=== PATIENT | male | born 1940 | race African-American/Black ===

== ENCOUNTER 2020-06-26 12:38 | Inpatient (IN) | payer OTHER ==
[2020-06-26] MEDS ORDERED: LORazepam 2 MG/ML SDV VIAL ONE (12:51)
[2020-06-26] MEDS ORDERED: diazePAM CARPU-JECT 10 MG/2 ML DISP.SYRIN IVPUSH ONE (12:58)
[2020-06-26] MEDS ORDERED: levETIRAcetam 500 MG/5 ML INJECTION VIAL IVPB ONE (13:03)
[2020-06-26] MEDS ORDERED: PROPOFOL 200 MG/20 ML VIAL IVPUSH ONE (13:16)
[2020-06-26 13:18] LABS: VENOUS BASE EXCESS 6.1 mmol/L (-2-2); VENOUS O2 SATURATION 96.6 % (70-80); VENOUS PCO2 43.7 mmHg (38-52); VENOUS PH 7.462 (7.310-7.410)
[2020-06-26] MEDS ORDERED: PROPOFOL 1,000,000 MCG/100 ML VIAL ONE (13:18)
[2020-06-26 13:19] LABS: BASO % 0.5 % (0-2.0); EOS % 1.9 % (0-4.5); HEMATOCRIT 26.4 % (35.4-49); HEMOGLOBIN 8.3 GM/dL (11.7-16.9); LYMPH % 26.4 % (8-40); MCH 26.4 pg (25.7-33.7); MCHC 31.5 g/dl (32.0-35.9); MEAN CELL VOLUME 83.7 fl (80-96); MEAN PLT VOLUME 6.7 fl (7.5-11.1); MONO % 9.9 % (3.8-10.2); NEUT % 61.3 % (42.8-82.8); PLATELET COUNT 668 K/MM3 (134-434); RBC 3.16 M/mm3 (4.00-5.60); RDW 17.6 % (11.9-15.9); WHITE BLOOD COUNT 11.1 K/mm3 (4.0-10.0)
--- NOTE | 2020-06-26 13:19 | PDOC ---
History of Present Illness - General Stated Complaint: SEIZURE Time Seen by Provider: 06/26/20 12:59 - History of Present Illness Initial Comments: 06/26/20 13:17 79yo M w/ significant past medical history of cardiac arrest, ICH, dysphagia, h ypertension, asthma, GERD, T1DM, neuropathy, COPD, s/p tracheostomy, seizures, metabolic encephalopathy, s/p chronic neely (changed every third Sat), and nonverbal at baseline who presents to the ED via EMS from [facility] with a seizure. Per [place] and EMS, the patient was having one of his daily seizures but, they did not have medications to control it once it continued longer than it usually does. Per EMS, he was not given anything en route. History is limited secondary to the patient's baseline thus, was obtained via EMS and [place]. Per [place] records, patients care is primarily from [facility]. Allergies: NKDA Primary Care Physician: Dr. Carcamo Unable to complete ROS because patient is nonverbal at baseline - Physicial Exam PE: 06/26/20 13:27 GENERAL: elderly male on EMS stretcher with tonic-clonic jerking movements and not responding to examiners, not tracking examiners, not responsive to pain HEENT: trach and vent dependent, PERRLA, EOMI, moist mucous membranes, no outward e/o facial trauma NECK/BACK: no spinal stepoff or deformity, no hematoma, neck supple CARDIOVASCULAR: regular rate/rhythm, normal S1S2, no MGR, capillary refill <2 seconds, extremities wwp, 2+ pitting anasarca all four extremities and sacrum LUNGS/RESPIRATORY: nonlabored respirations, lungs CTAB GI/ABDOMEN: PEG in place, symmetric [id number], normoactive BS, soft, no midline pulsatile masses, no organomegaly MSK/EXTREMITIES: chronic-appearing muscle atrophy, no acute deformity, anasarca DERM/SKIN: two 1cm bullae to left posterior lateral gluteus, skin is otherwise warm and dry, no pathologic-appearing bruising, no skin breakdown and no sacral decubitus ulcer, no lacerations, +lipodermatosclerosis BLE NEUROLOGICAL: leftward gaze deviation and tonic-clonic movements of head and upper extremities persisting despite medications c/w status epilepticus, not responding to pain, no movement BLE 06/26/20 14:44 MDM He apparently has seizures everyday, but today's allegedly lasted longer. We are, therefore, working him up for sepsis, trauma, electrolyte abnormality... CBC - thrombocytosis, mildly elevated WBC 06/26/20 14:53 06/26/20 15:11 79yo M from [facility] w/ prior ICH, cardiac arrest, seizure disorder, nonverbal at baseline and trached has daily seizures and p/w status epilepticus. He didn't respond to 2IM ativan + 2IV diazepam, was loaded on 1g Keppra, but finally did to a propofol bolus. Now on a propofol drip. Labs were grossly normal, no changes in meds and no labs suggesting infection. Is there anything else you want while we admit him. Iftikhar instructed to increase daily keppra dose to 1250mg IV bid. His v/s have been wnl except for his pressure, which just jumped up to the 180s/80s. We just gave him 10 Labetalol. Now being admitted to ICU for status. 06/26/20 15:58 Past History - Medical History Allergies/Adverse Reactions: Allergies Allergy/AdvReac Type Severity Reaction Status Date / Time No Known Allergies Allergy Verified 06/26/20 13:13 Home Medications: Ambulatory Orders Docusate Sodium [Colace Oral Solution -] 100 mg GT TID 06/26/20 Ferrous Sulfate [Feosol] 300 mg GT DAILY 06/26/20 Furosemide [Lasix -] 20 mg GT DAILY 06/26/20 Insulin Lispro [Admelog Solostar] 100 unit SQ ASDIR 06/26/20 Lactobacillus Acidophilus [Acidophilus] 1 each GT DAILY 06/26/20 Levetiracetam [Spritam] 1,000 mg GT BID 06/26/20 Losartan Potassium [Cozaar] 100 mg GT DAILY 06/26/20 Metoprolol Tartrate [Lopressor -] 12.5 mg GT BID 06/26/20 Ondansetron [Zofran *Odt*] 4 mg SL TID PRN 06/26/20 Polyethylene Glycol 3350 [Miralax (For Daily Use) -] 17 gm GT DAILY 06/26/20 Senna [place] Extract [Senna] 176 mg GT HS 06/26/20 *Physical Exam - Vital Signs Last Vital Signs Temp Pulse Resp BP Pulse Ox 18 06/26/20 13:02 ED Treatment Course - LABORATORY CBC & Chemistry Diagram: 06/26/20 12:55 06/26/20 12:55 - ADDITIONAL ORDERS Additional order review: Laboratory Results 06/26/20 13:14 POC Glucometer 120 06/26/20 13:14 POC Glucometer 120 Discharge - Discharge Information Problems reviewed: Yes Clinical Impression/Diagnosis: Status epilepticus, Edema Anemia Qualifiers: Anemia type: unspecified type Qualified Code(s): D64.9 - Anemia, unspecified Condition: Guarded - Admission Yes - Follow up/Referral - Patient Discharge Instructions - Post Discharge Activity
[2020-06-26 13:30] LABS: INR 1.15 (0.83-1.09); PROTHROMBIN TIME (PATIENT) 13.6 SEC (9.7-13.0)
[2020-06-26 13:32] LABS: ACTIVATED PTT 28.8 SECONDS (25.2-36.5)
[2020-06-26 13:39] LABS: ALBUMIN 2.2 g/dl (3.4-5.0); ALK PHOS 59 U/L (45-117); ANION GAP 5 MMOL/L (8-16); BILIRUBIN,TOTAL 0.3 mg/dL (0.2-1); BLOOD UREA NITROGEN 11.9 mg/dL (7-18); CALCIUM 9.2 mg/dL (8.5-10.1); CHLORIDE 105 mmol/L (98-107); CO2 32 mmol/L (21-32); CREATININE 0.5 mg/dL (0.55-1.3); GLUCOSE,RANDOM 125 mg/dL (74-106); LIPASE 141 U/L (73-393); MAGNESIUM 2.2 mg/dL (1.8-2.4); POTASSIUM 3.9 mmol/L (3.5-5.1); SGOT/AST 36 U/L (15-37); SGPT/ALT 67 U/L (13-61); SODIUM 142 mmol/L (136-145); TOT PROT 6.7 g/dl (6.4-8.2)
[2020-06-26] MEDS: PROPOFOL 1,000,000 MCG/100 ML VIAL IVPB SCH (14:12)
--- NOTE | 2020-06-26 14:53 | PDOC ---
Documentation entered by Melvin Brown SCRIBE, acting as scribe for Selena Colorado MD. Selena Colorado MD: This documentation has been prepared by the Stephanie contreras Nirvannie, SCRIBE, under my direction and personally reviewed by me in its entirety. I confirm that the documentation accurately reflects all work, treatment, procedures, and medical decision making performed by me. 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 Per [place] and EMS, the patient was having one of his daily seizures but, they did not have medications to control. Per EMS, he was not given anything en route. History is limited secondary to the patient's baseline thus, was obtained via EMS and [place]. Per [place] records, patients care is primarily from [facility]. Allergies: NKDA Primary Care Physician: Dr. Carcamo - Physicial Exam PE: 06/26/20 13:27 GENERAL: elderly male on EMS stretcher with tonic-clonic jerking movements and not responding to examiners, not tracking examiners, not responsive to pain HEENT: trach and vent dependent, PERRLA, EOMI, moist mucous membranes, no outward e/o facial trauma NECK/BACK: no spinal stepoff or deformity, no hematoma, neck supple CARDIOVASCULAR: regular rate/rhythm, normal S1S2, no MGR, capillary refill <2 seconds, extremities wwp, 2+ pitting anasarca all four extremities and sacrum LUNGS/RESPIRATORY: nonlabored respirations, lungs CTAB GI/ABDOMEN: PEG in place, symmetric [id number], normoactive BS, soft, no midline pulsatile masses, no organomegaly MSK/EXTREMITIES: chronic-appearing muscle atrophy, no acute deformity, anasarca DERM/SKIN: two 1cm bullae to left posterior lateral gluteus, skin is otherwise warm and dry, no pathologic-appearing bruising, no skin breakdown and no sacral decubitus ulcer, no lacerations, +lipodermatosclerosis BLE NEUROLOGICAL: leftward gaze deviation and tonic-clonic movements of head and upper extremities persisting despite medications c/w status epilepticus, not responding to pain, no movement BLE - Medical Decision Making 06/26/20 14:39 79YOM with h/o seizure disorder p/w status epilepticus. Initial Vital Signs Temp Pulse Resp BP Pulse Ox 97.7 F 109 H 20 157/70 99 06/26/20 12:50 06/26/20 12:50 06/26/20 12:50 06/26/20 12:50 06/26/20 12:50 DDX IBNLT: Most likely W/U ordered: labs as noted below, EKG, CXR, CTH without contrast TX ordered: IVF, Ativan IM as patient initially had no IV access, subsequently diazepam IV, subsequently Keppra 1 gm IVPB, subsequently propofol bolus and drip after status epilepticus is refractory to other medications EKG: Reviewed; results as noted in ECG Review section. Laboratory Tests 06/26/20 06/26/20 06/26/20 12:55 12:55 12:55 WBC 11.1 H RBC 3.16 L Hgb 8.3 L Hct 26.4 L MCV 83.7 MCH 26.4 MCHC 31.5 L RDW 17.6 H Plt Count 668 H MPV 6.7 L Absolute Neuts (auto) 6.8 Neutrophils % 61.3 Lymphocytes % 26.4 Monocytes % 9.9 Eosinophils % 1.9 Basophils % 0.5 Nucleated RBC % 0 PT with INR 13.60 H INR 1.15 H PTT (Actin FS) 28.8 VBG pH POC VBG pCO2 POC VBG pO2 VBG HCO3 VBG O2 Sat (Reece) VBG Base Excess Sodium 142 Potassium 3.9 Chloride 105 Carbon Dioxide 32 Anion Gap 5 L BUN 11.9 Creatinine 0.5 L Est GFR (CKD-EPI)AfAm 118.62 Est GFR (CKD-EPI)NonAf 102.35 POC Glucometer Random Glucose 125 H Lactic Acid Calcium 9.2 Phosphorus Magnesium 2.2 Total Bilirubin 0.3 AST 36 ALT 67 H Alkaline Phosphatase 59 Troponin I < 0.02 B-Natriuretic Peptide 216.0 Total Protein 6.7 Albumin 2.2 L Lipase 141 Blood Type Antibody Screen 06/26/20 06/26/20 06/26/20 12:55 12:55 12:55 WBC RBC Hgb Hct MCV MCH MCHC RDW Plt Count MPV Absolute Neuts (auto) Neutrophils % Lymphocytes % Monocytes % Eosinophils % Basophils % Nucleated RBC % PT with INR INR PTT (Actin FS) VBG pH 7.462 H POC VBG pCO2 43.7 POC VBG pO2 82.8 H VBG HCO3 30.5 H VBG O2 Sat (Reece) 96.6 H VBG Base Excess 6.1 H Sodium Potassium Chloride Carbon Dioxide Anion Gap BUN Creatinine Est GFR (CKD-EPI)AfAm Est GFR (CKD-EPI)NonAf POC Glucometer Random Glucose Lactic Acid 1.0 Calcium Phosphorus Magnesium Total Bilirubin AST ALT Alkaline Phosphatase Troponin I B-Natriuretic Peptide Total Protein Albumin Lipase Blood Type A POSITIVE Antibody Screen Negative 06/26/20 06/26/20 13:07 13:14 WBC RBC Hgb Hct MCV MCH MCHC RDW Plt Count MPV Absolute Neuts (auto) Neutrophils % Lymphocytes % Monocytes % Eosinophils % Basophils % Nucleated RBC % PT with INR INR PTT (Actin FS) VBG pH POC VBG pCO2 POC VBG pO2 VBG HCO3 VBG O2 Sat (Reece) VBG Base Excess Sodium Potassium Chloride Carbon Dioxide Anion Gap BUN Creatinine Est GFR (CKD-EPI)AfAm Est GFR (CKD-EPI)NonAf POC Glucometer 120 Random Glucose Lactic Acid Calcium Phosphorus 3.4 Magnesium Total Bilirubin AST ALT Alkaline Phosphatase Troponin I B-Natriuretic Peptide Total Protein Albumin Lipase Blood Type Antibody Screen CT/HEAD CT WITHOUT CONTRAST HISTORY PROVIDED: Seizure TECHNIQUE: Sequential axial images were obtained from the base of the skull to the vertex. There is a right frontoparietal extra-axial fluid collection consistent with a chronic subdural hematoma. There is no evidence of acute intracranial hemorrhage, mass lesions or infarctions. There is a moderate degree of diffuse cerebral atrophy with sulcal widening and ventricular dilatation. Extensive hypodensity is identified throughout the ventricular white matter consistent with chronic, small vessel ischemia. There is extensive opacification of the left maxillary sinus consistent with acute/chronic sinusitis. There is also partial opacification of the ethmoid sinuses, as well as the right mastoid air cells. The calvarium is intact. IMPRESSION: 1. Moderate right-sided chronic subdural hematoma. 2. Extensive sinusitis and right mastoiditis. 3. No evidence of acute intracranial pathology. CXR: trach noted, poor inspiration no focal consolidations. The Pt is unsafe for discharge at this time. They require further hospital observation, workup, and treatment. Plan is admission to ICU for status epilepticus refractory to 1st and 2nd line medications and requiring propofol drip. Vital Signs - 24 hr 06/26/20 06/26/20 06/26/20 12:50 13:02 13:27 Temperature 97.7 F 98.9 F Pulse Rate 109 H Pulse Rate [ Apical] Respiratory 20 18 Rate Blood Pressure 157/70 Blood Pressure [Right Calf] O2 Sat by Pulse 99 Oximetry (%) 06/26/20 06/26/20 13:30 14:00 Temperature 97.1 F L Pulse Rate 85 Pulse Rate [ 85 Apical] Respiratory 16 16 Rate Blood Pressure 157/77 Blood Pressure 128/72 [Right Calf] O2 Sat by Pulse 100 100 Oximetry (%) Heart Score/ECG Review #1 06/26/20 13:49 Sinus rhythm, rate 88, left axis deviation, RBBB, LAFB, nonspecific ST-T wvae abnormalities but no other ischemic ST-T changes Discharge - Discharge Information Problems reviewed: Yes Clinical Impression/Diagnosis: Status epilepticus Anemia Qualifiers: Anemia type: unspecified type Qualified Code(s): D64.9 - Anemia, unspecified Edema Qualifiers: Edema type: unspecified Qualified Code(s): R60.9 - Edema, unspecified Condition: Guarded - Admission Yes - Follow up/Referral - Patient Discharge Instructions - Post Discharge Activity
[2020-06-26 14:56] LABS: EPI CELLS 19 /uL (0-25.1); HYALINE CASTS 46 /uL (0-3.1); PH,URINE 7.5 (5.0-8.0); URINE APPEARANCE TURBID; URINE BACTERIA 380 /uL (0-1359); URINE BILIRUBIN NEGATIVE (NEGATIVE); URINE COLOR YELLOW; URINE GLUCOSE (UA) NEGATIVE (NEGATIVE); URINE KETONE NEGATIVE (NEGATIVE); URINE LEUK ESTERASE 2+ (NEGATIVE); URINE NITRITE NEGATIVE (NEGATIVE); URINE PROTEIN 2+ (NEGATIVE); URINE RBC 553 /uL (0-23.9); URINE WBC 399 /uL (0-25.8)
[2020-06-26] MEDS ORDERED: LABETALOL HCL 5 MG/1 ML (100MG/20 ML VIAL) IVPUSH ONE (15:30)
[2020-06-26] MEDS ORDERED: LABETALOL HCL 5 MG/1 ML (200MG/40ML VIAL) IVPB ONE (15:31)
[2020-06-26] MEDS ORDERED: ACETAMINOPHEN 650 MG/20.3 ML ORAL SOLUTION (CUPS) GT PRN (16:11)
[2020-06-26] MEDS ORDERED: D5-1/2NS+20 MEQ KCL - 20 MEQ/1,000 ML INFUS.BAG IV SCH (16:30)
--- NOTE | 2020-06-26 18:01 | CONSULT ---
Consult Consult Specialty:: PULM/CCM Referred by:: Cristina Walters MD Reason for Consultation:: Seizure not resolved with ativan - History of Present Illness Chief Complaint: Seizures History of Present Illness: 79yo M w/ medical history of cardiac arrest, ICH, dysphagia, hypertension, asthma, GERD, T1DM, neuropathy, COPD, s/p tracheostomy, seizures, metabolic encephalopathy, chronic neely (changed every third Sat), and nonverbal at baseline who presents to the ED via EMS from [facility] with a seizure. Per [place] and EMS, the patient was having one of his daily seizures but. In ED patient treated with diazepam, ativan and Keppra with no improvement. Patient then started on propofol infusion with positive outcome and was transferred to ICU for further management. 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, Seizure, Other (ICH, metabolic encephalopathy) Cardio/Vascular: Yes: HTN, Other (cardiac arrest) Pulmonary: Yes: Asthma, COPD, O2 Dependent, Other (trach to vent) Gastrointestinal: Yes: Other (PEG) Renal/: Yes: Other (chronic neely) ENT: Yes: Sinusitis Endocrine: Yes: Diabetes Mellitus - Alcohol/Substance Use Hx Alcohol Use: No - Smoking History Smoking history: Unknown if ever smoked Home Medications - Allergies Allergies/Adverse Reactions: Allergies Allergy/AdvReac Type Severity Reaction Status Date / Time No Known Allergies Allergy Verified 06/26/20 13:13 - Home Medications Home Medications: Ambulatory Orders Docusate Sodium [Colace Oral Solution -] 100 mg GT TID 06/26/20 Ferrous Sulfate [Feosol] 300 mg GT DAILY 06/26/20 Furosemide [Lasix -] 20 mg GT DAILY 06/26/20 Insulin Lispro [Admelog Solostar] 100 unit SQ ASDIR 06/26/20 Lactobacillus Acidophilus [Acidophilus] 1 each GT DAILY 06/26/20 Levetiracetam [Spritam] 1,000 mg GT BID 06/26/20 Losartan Potassium [Cozaar] 100 mg GT DAILY 06/26/20 Metoprolol Tartrate [Lopressor -] 12.5 mg GT BID 06/26/20 Ondansetron [Zofran *Odt*] 4 mg SL TID PRN 06/26/20 Polyethylene Glycol 3350 [Miralax (For Daily Use) -] 17 gm GT DAILY 06/26/20 Senna [place] Extract [Senna] 176 mg GT HS 06/26/20 Review of Systems Unable to obtain ROS, reason: unable to obtain Physical Exam Vital Signs: Vital Signs Temperature 97.1 F L 06/26/20 15:00 Pulse Rate 80 06/26/20 17:25 Respiratory Rate 16 06/26/20 17:25 Blood Pressure 138/89 06/26/20 17:25 O2 Sat by Pulse Oximetry (%) 100 06/26/20 16:57 Constitutional: Yes: No Distress Eyes: Yes: WNL, Conjunctiva Clear, PERRL HENT: Yes: Atraumatic, Normocephalic Neck: Yes: Supple, Other (tracheostomy) Cardiovascular: Yes: Regular Rate and Rhythm, S1, S2 Respiratory: Yes: Regular, CTA Bilaterally, Mechanically Ventilated, Other (tracheostomy) Gastrointestinal: Yes: Normal Bowel Sounds, Soft, Abdomen, Obese, Other (PEG) ...Rectal Exam: Yes: Deferred Renal/: Yes: Neely Present, Incontinence, Other (Chronic neely) Breast(s): Yes: WNL Musculoskeletal: Yes: Muscle Weakness Extremities: Yes: WNL Edema: LUE: 4+, RUE: 4+, LLE: 3+, RLE: 3+ Integumentary: Yes: Other (dry, flaky) Neurological: Yes: Other (unresponsive, currently on propofol, non-verbal at baseline) Labs: CBC, BMP 06/26/20 12:55 06/26/20 12:55 Imaging - Results X-ray: Image Reviewed (06/26 Personal read: Poor inspiratory effort. Bilateral opacities, some blunting of left costophrenic angle) Cat Scan: Report Reviewed (06/26 Moderate right-sided chronic subdural hematoma. Extensive sinusitis and right mastoiditis. No evidence of acute intracranial pathology.) Problem List - Problems (1) Status epilepticus Code(s): G40.901 - EPILEPSY, UNSP, NOT INTRACTABLE, WITH STATUS EPILEPTICUS (2) Seizure disorder Code(s): G40.909 - EPILEPSY, UNSP, NOT INTRACTABLE, WITHOUT STATUS EPILEPTICUS (3) Seizure disorder as sequela of cerebrovascular accident Code(s): I69.398 - OTHER SEQUELAE OF CEREBRAL INFARCTION; G40.909 - EPILEPSY, UN SP, NOT INTRACTABLE, WITHOUT STATUS EPILEPTICUS (4) Edema Code(s): R60.9 - EDEMA, UNSPECIFIED Qualifiers: Edema type: unspecified Qualified Code(s): R60.9 - Edema, unspecified (5) Tracheostomy dependent Code(s): Z93.0 - TRACHEOSTOMY STATUS (6) Chronic indwelling Neely catheter Code(s): Z97.8 - PRESENCE OF OTHER SPECIFIED DEVICES Assessment/Plan 79yo M w/ medical history of cardiac arrest, ICH, dysphagia, s/p tracheostomy, seizures, admitted to ICU for continues seizure activity requiring Propofol infusion. -Keppra 1250 mg BIB (increased from 1 g BID) -Neuro checks q 1 hours -Will give additional Ativan 4 mg IVP -Titrate off Propofol -Continue BB -No IVF a this time due to +4 peripheral edema' -Continue home dose Lasix -give 40 mg Lasix IVP x 1 now -Patient is vent dependent -Titrate FiO2 for saO2 >92%% -Pulmonary toileting -Neuro recs appreciated -No need for abx at this time -Follow up on infectious workup -Maintain neely -Will start TF later tonight if free of sz -Fingersticks q 6 hours with insulin sliding scale -DVT ppx -GI ppx Dispo: Patient is a full code
[2020-06-26] MEDS ORDERED: FUROSEMIDE 40 MG/4 ML INJECTABLE VIAL IVPUSH ONE (18:15)
[2020-06-26] MEDS ORDERED: LORazepam 2 MG/ML SDV VIAL IVPUSH ONE (18:36)
[2020-06-26] MEDS: INSULIN SLIDING SCALE (NOVOLOG) 1 VIAL SQ SCH (19:04)
[2020-06-26] MEDS: METOPROLOL TARTRATE 25 MG TABLET (FP) GT SCH (21:10)
[2020-06-26] MEDS: DOCUSATE NA 100 MG/10 ML UNIT-DOSE CUPS GT SCH (21:11)
[2020-06-26] MEDS: levETIRAcetam 500 MG/5 ML INJECTION VIAL IVPB SCH (21:11)
[2020-06-26] MEDS: MUPIROCIN 2% TOPICAL OINTMENT FOR DECOLONIZATION NS SCH (21:11)
[2020-06-26] MEDS: CHLORHEXIDINE GLUCONATE 4% CLEANSER FOR DECOLONIZATION TP SCH (21:12)
[2020-06-26] MEDS ORDERED: levETIRAcetam 500 MG/5 ML ORAL SOLUTION (UNIT-DOSE CUPS) GT SCH (22:00)
[2020-06-26] MEDS ORDERED: INSULIN SLIDING SCALE (NOVOLOG) 1 VIAL SQ SCH (22:00)
[2020-06-27] MEDS: INSULIN SLIDING SCALE (NOVOLOG) 1 VIAL SQ SCH ×4 (01:58→18:42)
[2020-06-27] MEDS ORDERED: LORazepam 2 MG/ML SDV VIAL IVPUSH ONE ×2 (04:10→09:36)
[2020-06-27] MEDS ORDERED: LORazepam 2 MG/ML SDV VIAL ONE ×2 (04:11→09:38)
[2020-06-27] MEDS: FUROSEMIDE 40 MG/4 ML INJECTABLE VIAL IVPUSH SCH ×2 (06:04→14:30)
[2020-06-27] MEDS: DOCUSATE NA 100 MG/10 ML UNIT-DOSE CUPS GT SCH ×3 (06:04→21:09)
--- NOTE | 2020-06-27 08:26 | CON.NEURO ---
Consult Consult Specialty:: [facility] Referred by:: ER Reason for Consultation:: Status - History of Present Illness History of Present Illness: this is an 79-year-old right-handed -[place] man with multiple medical problem including history of tracheostomy, history of strokes in the past, fdc resident, seizure disorder who came in yesterday last night I was called by the emergency room in turn that the patient came in with seizure activity multiple at the fdc patient did not stop seizing after Ativan and diazepam patient requires probable 4. CAT scan of the head with evidence of subdural hematoma and neurosurgery was called to evaluate the patient patient was admitted to the medical ICU so the patient in the ICU I spoke to the ICU team patient was unfortunately still seizing when I saw him. We increased the Keppra we loaded him with 1000 mg and then increase to 01/13/50. Patient is not DNR patient was evaluated by neurosurgery with this plan. 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, Other (ICH, metabolic encepha lopathy) Cardio/Vascular: Yes: HTN, Other (cardiac arrest) Pulmonary: Yes: Asthma, COPD, O2 Dependent, Other (trach to vent) Gastrointestinal: Yes: Other (PEG) Renal/: Yes: Other (chronic neely) ENT: Yes: Sinusitis Endocrine: Yes: Diabetes Mellitus - Alcohol/Substance Use Hx Alcohol Use: No - Smoking History Smoking history: Unknown if ever smoked Home Medications - Allergies Allergies/Adverse Reactions: Allergies Allergy/AdvReac Type Severity Reaction Status Date / Time No Known Allergies Allergy Verified 06/26/20 13:13 - Home Medications Home Medications: Ambulatory Orders Docusate Sodium [Colace Oral Solution -] 100 mg GT TID 06/26/20 Ferrous Sulfate [Feosol] 300 mg GT DAILY 06/26/20 Furosemide [Lasix -] 20 mg GT DAILY 06/26/20 Insulin Lispro [Admelog Solostar] 100 unit SQ ASDIR 06/26/20 Lactobacillus Acidophilus [Acidophilus] 1 each GT DAILY 06/26/20 Levetiracetam [Spritam] 1,000 mg GT BID 06/26/20 Losartan Potassium [Cozaar] 100 mg GT DAILY 06/26/20 Metoprolol Tartrate [Lopressor -] 12.5 mg GT BID 06/26/20 Ondansetron [Zofran *Odt*] 4 mg SL TID PRN 06/26/20 Polyethylene Glycol 3350 [Miralax (For Daily Use) -] 17 gm GT DAILY 06/26/20 Senna [place] Extract [Senna] 176 mg GT HS 06/26/20 Family Medical History Family History: Unable to Obtain Review of Systems Unable to obtain ROS, reason: unable to obtain Physical Exam-Neuro Vital Signs: Vital Signs Temperature 98 F 06/27/20 06:00 Pulse Rate 93 H 06/27/20 06:00 Respiratory Rate 16 06/27/20 06:00 Blood Pressure 169/93 06/27/20 06:00 O2 Sat by Pulse Oximetry (%) 100 06/27/20 06:00 Labs: CBC, BMP 06/26/20 12:55 06/26/20 12:55 INR, PTT INR 1.15 (0.83-1.09) H 06/26/20 12:55 - Neuro Exam Level Of Consciousness: Yes: Obtunded Eyes: Yes: PERRLA Speech: Other Dominant Hand: Right Cranial Nerves II-XII Intact: No DTR's: 1+ Left Bicep, 1+ Right Bicep, 1+ Left Tricep, 1+ Right Tricep Imaging - Results Cat Scan: Image Reviewed Problem List - Problems (1) Subdural bleeding Code(s): I62.00 - NONTRAUMATIC SUBDURAL HEMORRHAGE, UNSPECIFIED (2) Status epilepticus Code(s): G40.901 - EPILEPSY, UNSP, NOT INTRACTABLE, WITH STATUS EPILEPTICUS Assessment/Plan 1. Neuro checks every 1 hour. 2. Repeat Ativan 2 mg IV push when necessary seizure. 3. EEG. 4. Increase Keppra to 1250 twice daily. 4. Vimpat 100 mg IV every 12. 6. Prolactin level. 7. Repeat CAT scan of the head on June 28. Thank you very much for referring this patient for neurological consultation Connie Luna M.D. [phone]
--- NOTE | 2020-06-27 09:08 | HP ---
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, Other (ICH, metabolic encephalopathy) Cardiovascular: Yes: HTN, Other (cardiac arrest) Pulmonary: Yes: Asthma, COPD, O2 Dependent, Other (trach to vent) Gastrointestinal: Yes: Other (PEG) Renal/: Yes: Other (chronic neely) ENT: Yes: Sinusitis Endocrine: Yes: Diabetes Mellitus - Smoking History Smoking history: Unknown if ever smoked - Alcohol/Substance Use Hx Alcohol Use: No Home Medications - Allergies Allergies/Adverse Reactions: Allergies Allergy/AdvReac Type Severity Reaction Status Date / Time No Known Allergies Allergy Verified 06/26/20 13:13 - Home Medications Home Medications: Ambulatory Orders Docusate Sodium [Colace Oral Solution -] 100 mg GT TID 06/26/20 Ferrous Sulfate [Feosol] 300 mg GT DAILY 06/26/20 Furosemide [Lasix -] 20 mg GT DAILY 06/26/20 Insulin Lispro [Admelog Solostar] 100 unit SQ ASDIR 06/26/20 Lactobacillus Acidophilus [Acidophilus] 1 each GT DAILY 06/26/20 Levetiracetam [Spritam] 1,000 mg GT BID 06/26/20 Losartan Potassium [Cozaar] 100 mg GT DAILY 06/26/20 Metoprolol Tartrate [Lopressor -] 12.5 mg GT BID 06/26/20 Ondansetron [Zofran *Odt*] 4 mg SL TID PRN 06/26/20 Polyethylene Glycol 3350 [Miralax (For Daily Use) -] 17 gm GT DAILY 06/26/20 Senna [place] Extract [Senna] 176 mg GT HS 06/26/20 Physical Examination Vital Signs: Vital Signs Temperature 98 F 06/27/20 06:00 Pulse Rate 92 H 06/27/20 08:26 Respiratory Rate 14 06/27/20 08:26 Blood Pressure 169/93 06/27/20 06:00 O2 Sat by Pulse Oximetry (%) 100 06/27/20 08:26 Cardiovascular: Yes: S1, S2 Respiratory: Yes: Mechanically Ventilated Gastrointestinal: Yes: Normal Bowel Sounds, Soft Neurological: Yes: Unresponsive Labs: CBC, BMP 06/26/20 12:55 06/26/20 12:55 Problem List - Problems (1) Status epilepticus Assessment/Plan: neuro consult appreciated continue with current meds ct head in am Code(s): G40.901 - EPILEPSY, UNSP, NOT INTRACTABLE, WITH STATUS EPILEPTICUS (2) Seizure disorder Assessment/Plan: ABOVE Code(s): G40.909 - EPILEPSY, UNSP, NOT INTRACTABLE, WITHOUT STATUS EPILEPTICUS (3) CVA (cerebral vascular accident) Assessment/Plan: OLD MONITOR Code(s): I63.9 - CEREBRAL INFARCTION, UNSPECIFIED (4) Respiratory failure Assessment/Plan: VENT SETTING PER PULM Code(s): J96.90 - RESPIRATORY FAILURE, UNSP, UNSP W HYPOXIA OR HYPERCAPNIA (5) Anemia Assessment/Plan: FOLLOW TRENDS Code(s): D64.9 - ANEMIA, UNSPECIFIED Qualifiers: Anemia type: unspecified type Qualified Code(s): D64.9 - Anemia, unspecified (6) UTI (urinary tract infection) Assessment/Plan: IV ABX AWAIT CULTURES Code(s): N39.0 - URINARY TRACT INFECTION, SITE NOT SPECIFIED
--- NOTE | 2020-06-27 09:36 | PN ---
Progress Note (short form) - Note Progress Note: NEUROSURGERY CONSULT DICTATED Chart reviewed Pt examined CT reviewed h/o cardiac arrest, ICH, hypertension, asthma, COPD, GERD, DM, neuropathy, s/p tracheostomy, seizures, metabolic/anoxic encephalopathy was nonverbal at baseline and presented to the ED from [facility] with a seizure. Patient was having one of his daily seizures but the sz activoty persisted the day of admission. In ED patient treated with diazepam, ativan and Keppra with no improvement. Given propofol infusion with sz improvement PE: AF, VSS General- trach in place CN- intact; Motor- minimal movement; Sensation- difficult to assess; DTR- toes upgoing B Labs reviewed; blood culture pending CT head- R > L chronic subdural fluid collection with minimal mass effect, periventricular small vessel dz, atrophy Chronic SDH R > L Seizure disorder (metabolic/anoxic encephalopathy) Neurology input noted - further anticonvulsant adjustments and optimized sz management per neurology Overall poor baseline condition and functional status Neurosurgical intervention not recommended
--- NOTE | 2020-06-27 09:37 | EKG ---
Test Reason : Blood Pressure : / mmHG Vent. Rate : 088 BPM Atrial Rate : 088 BPM P-R Int : 148 ms QRS Dur : 128 ms QT Int : 396 ms P-R-T Axes : 062 -58 009 degrees QTc Int : 479 ms NORMAL SINUS RHYTHM RIGHT BUNDLE BRANCH BLOCK LEFT ANTERIOR FASCICULAR BLOCK BIFASCICULAR BLOCK ABNORMAL ECG NO PREVIOUS ECGS AVAILABLE Confirmed by Primitivo Shepherd ([id number]) on 06/27/2020 9:37:00 AM Referred By: Confirmed By:Primitivo Shepherd
[2020-06-27] MEDS: Lacosamide 200 MG/20 ML VIAL IVPB SCH ×2 (09:58→21:11)
[2020-06-27] MEDS ORDERED: FUROSEMIDE 20 MG TABLET (FP) GT SCH (10:00)
[2020-06-27] MEDS ORDERED: PT OWN MED DRAWER 7, Y5N ONE (10:54)
[2020-06-27] MEDS: METOPROLOL TARTRATE 25 MG TABLET (FP) GT SCH ×2 (10:59→21:10)
[2020-06-27] MEDS: levETIRAcetam 500 MG/5 ML INJECTION VIAL IVPB SCH ×2 (11:00→21:09)
[2020-06-27] MEDS: CEFTRIAXONE 1 GM in DEXTROSE 5%-WATER - 50 ML IVPB SCH (11:03)
[2020-06-27] MEDS: LOSARTAN POTASSIUM 50 MG TABLET (FP) GT SCH (11:04)
--- NOTE | 2020-06-27 11:20 | CON.CARD ---
Consult Consult Specialty:: Cardiology Referred by:: Dr. Ramirez Reason for Consultation:: CHF - History of Present Illness Chief Complaint: Recurrent seizure History of Present Illness: 79 year-old man, NHR, with a PMHx of HTN, DM, cardiac arrest, ICH, asthma, COPD, GERD, neuropathy, tracheostomy, seizures, metabolic encephalopathy, nonverbal at baseline admitted 06/26/20 with recurrent seizure. The patient had recurrent seizure on the day of admission. He was treated with diazepam, ativan and Keppra with no improvement. Givenon propofol infusion with improvement ECG 06/26/20 showed sinus rhythm at 88 BPM. LAD/LAFB and RBBB. CXR 06/26/20 revealed weak inspiration with congestive and infiltrative, atelectatic changes in the bases. CT head 06/26/20: Moderate chronic right sided SDH and extensive sinusitis and mastoiditis. Troponin and BNP are within normal range. Seen by neurosurgery and neurosurgical intervention not recommended. The patient remains intubated through trach and responds to only painful stimuli. - History Source History Provided By: Medical Record, Transfer Record Limitations to Obtaining History: No Limitations - Past Medical History MATERIAL DAMAGE ADJUSTER: Yes: CVA, Peripheral Neuropathy, Seizure, Other (ICH, metabolic encephalopathy) Cardio/Vascular: Yes: HTN, Other (cardiac arrest) Pulmonary: Yes: Asthma, COPD, O2 Dependent, Other (trach to vent) Gastrointestinal: Yes: Other (PEG) Renal/: Yes: Other (chronic neely) ENT: Yes: Sinusitis Endocrine: Yes: Diabetes Mellitus - Alcohol/Substance Use Hx Alcohol Use: No - Smoking History Smoking history: Unknown if ever smoked Home Medications - Allergies Allergies/Adverse Reactions: Allergies Allergy/AdvReac Type Severity Reaction Status Date / Time No Known Allergies Allergy Verified 06/26/20 13:13 - Home Medications Home Medications: Ambulatory Orders Docusate Sodium [Colace Oral Solution -] 100 mg GT TID 06/26/20 Ferrous Sulfate [Feosol] 300 mg GT DAILY 06/26/20 Furosemide [Lasix -] 20 mg GT DAILY 06/26/20 Insulin Lispro [Admelog Solostar] 100 unit SQ ASDIR 06/26/20 Lactobacillus Acidophilus [Acidophilus] 1 each GT DAILY 06/26/20 Levetiracetam [Spritam] 1,000 mg GT BID 06/26/20 Losartan Potassium [Cozaar] 100 mg GT DAILY 06/26/20 Metoprolol Tartrate [Lopressor -] 12.5 mg GT BID 06/26/20 Ondansetron [Zofran *Odt*] 4 mg SL TID PRN 06/26/20 Polyethylene Glycol 3350 [Miralax (For Daily Use) -] 17 gm GT DAILY 06/26/20 Senna [place] Extract [Senna] 176 mg GT HS 06/26/20 Review of Systems - Review of Systems Constitutional: reports: Other Neurological: reports: Seizure Vital Signs: Vital Signs Temperature 98 F 06/27/20 06:00 Pulse Rate 93 H 06/27/20 09:50 Respiratory Rate 13 06/27/20 09:50 Blood Pressure 140/81 06/27/20 09:50 O2 Sat by Pulse Oximetry (%) 100 06/27/20 09:50 General: Well developed. Chronic ill. No acute distress. Head: Normocephalic. Atraumatic, Neck: Supple. Trach in place. Heart: Normal S1, S2: Regular rhythm and rate. No murmur. No gallop or rub. Lungs: Symmetrical air entry with vent BS. Abdomen: Soft. Bowel sound positive. Non tender. No masses. Extremities: No edema. - Other Data Labs, Other Data: CBC, BMP 06/26/20 12:55 06/26/20 12:55 INR, PTT INR 1.15 (0.83-1.09) H 06/26/20 12:55 Troponin, BNP 06/26/20 12:55 Troponin I < 0.02 B-Natriuretic Peptide 216.0 Troponin, BNP 06/26/20 12:55 Troponin I < 0.02 B-Natriuretic Peptide 216.0 Imaging - Results Chest X-ray: Image Reviewed (CXR 06/26/20 revealed weak inspiration with congestive and infiltrative, atelectatic changes in the bases.) EKG: Image Reviewed (ECG 06/26/20 showed sinus rhythm at 88 BPM. LAD/LAFB and RBBB.) Assessment/Plan 79 year-old man, NHR, with a PMHx of HTN, DM, cardiac arrest, ICH, asthma, COPD, GERD, neuropathy, tracheostomy, seizures, metabolic encephalopathy, nonverbal at baseline admitted 06/26/20 with recurrent seizure. The patient had recurrent seizure on the day of admission. He was treated with diazepam, ativan and Keppra with no improvement. Givenon propofol infusion with improvement ECG 06/26/20 showed sinus rhythm at 88 BPM. LAD/LAFB and RBBB. CXR 06/26/20 revealed weak inspiration with congestive and infiltrative, atelectatic changes in the bases. CT head 06/26/20: Moderate chronic right sided SDH and extensive sinusitis and mastoiditis. Troponin and BNP are within normal range. Seen by neurosurgery and neurosurgical intervention not recommended. The patient remains intubated through trach and responds to only painful stimuli. 1) Questionable CHF with CXR evidence of congestive and infiltrative, atelectatic changes in the bases. Agree to use IV Lasix to prevent fluid overload. BNP is within normal range. Would repeat CXR to reevaluate congestion.
--- NOTE | 2020-06-27 11:29 | PN ---
Physical Exam: SUBJECTIVE: Patient seen and examined at bedside. pt is trached , not awake, pt is reportedly at baseline from [place]. OBJECTIVE: Vital Signs Period Temp Pulse Resp BP Sys/Canela Pulse Ox Last 24 Hr 97.1 F-98.9 F 75-109 12-20 128-182/70-93 97-100 GENERAL: The patient is not responsive, in no acute distress. HEAD: Normal with no signs of trauma. EYES: PERRL, extraocular movements intact, sclera anicteric, conjunctiva clear. No ptosis. LUNGS: b/l crackles and wheezes HEART: Regular rate and rhythm, S1, S2 without murmur, rub or gallop. ABDOMEN: Soft, nondistended, normoactive bowel sounds, no guarding. PEG in place EXTREMITIES: 2+ pulses, warm, well-perfused,b/l UE edema , LE edema SKIN: Warm, dry, normal turgor, no rashes or lesions noted Laboratory Last Values WBC 11.1 K/mm3 (4.0-10.0) H 06/26/20 12:55 RBC 3.16 M/mm3 (4.00-5.60) L 06/26/20 12:55 Hgb 8.3 GM/dL (11.7-16.9) L 06/26/20 12:55 Hct 26.4 % (35.4-49) L 06/26/20 12:55 MCV 83.7 fl (80-96) 06/26/20 12:55 MCH 26.4 pg (25.7-33.7) 06/26/20 12:55 MCHC 31.5 g/dl (32.0-35.9) L 06/26/20 12:55 RDW 17.6 % (11.9-15.9) H 06/26/20 12:55 Plt Count 668 K/MM3 (134-434) H 06/26/20 12:55 MPV 6.7 fl (7.5-11.1) L 06/26/20 12:55 Absolute Neuts (auto) 6.8 K/mm3 (1.5-8.0) 06/26/20 12:55 Neutrophils % 61.3 % (42.8-82.8) 06/26/20 12:55 Lymphocytes % 26.4 % (8-40) 06/26/20 12:55 Monocytes % 9.9 % (3.8-10.2) 06/26/20 12:55 Eosinophils % 1.9 % (0-4.5) 06/26/20 12:55 Basophils % 0.5 % (0-2.0) 06/26/20 12:55 Nucleated RBC % 0 % (0-0) 06/26/20 12:55 PT with INR 13.60 SEC (9.7-13.0) H 06/26/20 12:55 INR 1.15 (0.83-1.09) H 06/26/20 12:55 PTT (Actin FS) 28.8 SECONDS (25.2-36.5) 06/26/20 12:55 VBG pH 7.462 (7.310-7.410) H 06/26/20 12:55 POC VBG pCO2 43.7 mmHg (38-52) 06/26/20 12:55 POC VBG pO2 82.8 mmHg (28-48) H 06/26/20 12:55 VBG HCO3 30.5 mmol/L (23-29) H 06/26/20 12:55 VBG O2 Sat (Reece) 96.6 % (70-80) H 06/26/20 12:55 VBG Base Excess 6.1 mmol/L (-2-2) H 06/26/20 12:55 Sodium 142 mmol/L (136-145) 06/26/20 12:55 Potassium 3.9 mmol/L (3.5-5.1) 06/26/20 12:55 Chloride 105 mmol/L (98-107) 06/26/20 12:55 Carbon Dioxide 32 mmol/L (21-32) 06/26/20 12:55 Anion Gap 5 MMOL/L (8-16) L 06/26/20 12:55 BUN 11.9 mg/dL (7-18) 06/26/20 12:55 Creatinine 0.5 mg/dL (0.55-1.3) L 06/26/20 12:55 Est GFR (CKD-EPI)AfAm 118.62 06/26/20 12:55 Est GFR (CKD-EPI)NonAf 102.35 06/26/20 12:55 POC Glucometer 114 UNITS (80-120) 06/27/20 06:14 Random Glucose 125 mg/dL (74-106) H 06/26/20 12:55 Lactic Acid 1.0 mmol/L (0.4-2.0) 06/26/20 12:55 Calcium 9.2 mg/dL (8.5-10.1) 06/26/20 12:55 Phosphorus 3.4 mg/dL (2.5-4.9) 06/26/20 13:07 Magnesium 2.2 mg/dL (1.8-2.4) 06/26/20 12:55 Total Bilirubin 0.3 mg/dL (0.2-1) 06/26/20 12:55 AST 36 U/L (15-37) 06/26/20 12:55 ALT 67 U/L (13-61) H 06/26/20 12:55 Alkaline Phosphatase 59 U/L (45-117) 06/26/20 12:55 Troponin I < 0.02 ng/ml (0.00-0.05) 06/26/20 12:55 B-Natriuretic Peptide 216.0 pg/ml (5-450) 06/26/20 12:55 Total Protein 6.7 g/dl (6.4-8.2) 06/26/20 12:55 Albumin 2.2 g/dl (3.4-5.0) L 06/26/20 12:55 Lipase 141 U/L (73-393) 06/26/20 12:55 Urine Color Yellow 06/26/20 14:35 Urine Appearance Turbid 06/26/20 14:35 Urine pH 7.5 (5.0-8.0) 06/26/20 14:35 Ur Specific [place] 1.019 (1.010-1.035) 06/26/20 14:35 Urine Protein 2+ (NEGATIVE) H 06/26/20 14:35 Urine Glucose (UA) Negative (NEGATIVE) 06/26/20 14:35 Urine Ketones Negative (NEGATIVE) 06/26/20 14:35 Urine Blood 3+ (NEGATIVE) H 06/26/20 14:35 Urine Nitrite Negative (NEGATIVE) 06/26/20 14:35 Urine Bilirubin Negative (NEGATIVE) 06/26/20 14:35 Urine Urobilinogen 1.0 mg/dL (0.2-1.0) 06/26/20 14:35 Ur Leukocyte Esterase 2+ (NEGATIVE) H 06/26/20 14:35 Urine WBC (Auto) 399 /uL (0-25.8) 06/26/20 14:35 Urine RBC (Auto) 553 /uL (0-23.9) 06/26/20 14:35 Urine Casts (Auto) 46 /uL (0-3.1) 06/26/20 14:35 U Pathogenic Cast Auto None /lpf (NEGATIVE) 06/26/20 14:35 U Epithel Cells (Auto) 19 /uL (0-25.1) 06/26/20 14:35 Urine Bacteria (Auto) 380 /uL (0-1359) 06/26/20 14:35 COVID-19 (NEENA) Not detected (Not Detected) 06/26/20 14:09 Blood Type A POSITIVE 06/26/20 12:55 Antibody Screen Negative 06/26/20 12:55 Active Medications Generic Name Dose Route Start Last Admin Trade Name Juancarlosq PRN Reason Stop Dose Admin Acetaminophen 650 mg 06/26/20 16:11 Tylenol Oral Solution - GT Q4H PRN PAIN Chlorhexidine Gluconate 1 applic 06/26/20 22:00 06/26/20 21:12 Hibiclens For Decolonization - TP 1 applic HS NORRIS Administration Docusate Sodium 100 mg 06/26/20 22:00 06/27/20 06:04 Colace Liquid - GT 100 mg TID NORRIS Administration Famotidine 20 mg 06/27/20 10:00 Pepcid PEG DAILY NORRIS Ferrous Sulfate 300 mg 06/27/20 10:00 Feosol GT DAILY NORRIS Furosemide 40 mg 06/27/20 06:00 06/27/20 06:04 Lasix Injection - IVPUSH 40 mg BID@0600,1400 NORRIS Administration Propofol 1,000,000 mcg in 100 mls @ 2.58 mls/hr 06/26/20 13:30 06/26/20 18:35 Diprivan - IVPB 0 mcg/kg/min TITR NORRIS 0 mls/hr Titration Protocol 5 MCG/KG/MIN Ceftriaxone Sodium 1 gm/ 50 mls @ 200 mls/hr 06/27/20 10:00 Dextrose IVPB DAILY NORRIS Protocol Insulin Aspart 1 vial 06/26/20 18:06/27/20 06:48 Novolog Vial Sliding Scale - SQ Not Given Q6H NORRIS Protocol Lacosamide 100 mg 06/27/20 10:00 06/27/20 09:58 Vimpat Injection - IVPB 100 mg BID NORRIS Administration Levetiracetam 1,250 mg 06/26/20 22:00 06/27/20 11:00 Keppra Injection - IVPB 1,250 mg BID NORRIS Administration Losartan Potassium 100 mg 06/27/20 10:00 06/27/20 11:04 Cozaar - GT 100 mg DAILY NORRIS Administration Metoprolol Tartrate 12.5 mg 06/26/20 22:00 06/27/20 10:59 Lopressor - GT 12.5 mg BID NORRIS Administration Mupirocin 1 applic 06/26/20 22:00 06/26/20 21:11 Bactroban Ointment (For Decolonization) - NS 07/01/20 21:59 1 applic BID NORRIS Administration Polyethylene Glycol 17 gm 06/27/20 10:00 Miralax (For Daily Use) - GT DAILY NORRIS ASSESSMENT/PLAN: 79 yo MPMH of cardiac arrest, ICH, dysphagia, hypertension, asthma, GERD, T1DM, neuropathy, COPD( s/p tracheostomy), seizure d/o ,chronic neely (changed every third Sat), and nonverbal at baseline who presents to the ED via EMS from [facility] with a seizure.pt currently off propofol . had seizure overnight but responded to ativan 4mg Neuro: seizures 2/2 Acute toxic metabolic encephalopathy, seizure d/o - s/p propofol drip. currently off propofol, ativan for breakthrough seizure- responds well - keppra increased to 1250 bid. added vimpat today -neuro recs ( Dr. Luna ) appreciated. neurosurg recs appreciated, no neurosurgical intervention recommended at this time - will get EEG . - head CT negative for acute pathology, rpt head CT tomorrow -pt is at baseline mental status. - aspiration precautions -+ UA, pending cultures. will cont empiric ceftriaxone Cardio - cardio, Dr. Canales , consulted - c/w lasix 40 IVP bid - c/w lopressor, cozaar Pulm - trached to vent -A/C TV 400, RR 12, FiO2 50, PEEP 5 ID - + UA, pending cultures. will cont empiric ceftriaxone Endo T1DM - BGM , ISS Urology - chronic neely GI GERD - c/w pepcid DVT ppx: lovenox daily GIppx: pepcid 20 mg daily Stable for downgrade to vent unit. pt is at baseline mental status. Visit type - Emergency Visit Emergency Visit: No - New Patient This patient is new to me today: No - Critical Care Critical Care patient: No - Discharge Referral Referred to [facility] Med [facility] No - Medication Review Med list reviewed for High Risk Meds patients 65 and older: Yes ATTENDING PHYSICIAN STATEMENT I saw and evaluated the patient. I reviewed the resident's note and discussed the case with the resident. I agree with the resident's findings and plan as documented. SUBJECTIVE: OBJECTIVE: ASSESSMENT AND PLAN:
[2020-06-27] MEDS ORDERED: cefTRIAXone SODIUM 1 GM VIAL ONE (12:10)
[2020-06-27] MEDS ORDERED: DEXTROSE 5%-WATER - 50 ML IVPB ONE (12:10)
--- NOTE | 2020-06-27 13:42 | PN ---
Teaching Attending Note Name of Resident: Leigh Espinosa ATTENDING PHYSICIAN STATEMENT I saw and evaluated the patient. I reviewed the resident's note and discussed the case with the resident. I agree with the resident's findings and plan as documented. SUBJECTIVE: Patient seen and examined in the ICU. Poorly responsive on AC mode of vent. Seen by Neuro this AM. No seizure activity. Intake & Output 06/24/20 06/25/20 06/26/20 06/27/20 23:59 23:59 23:59 23:59 Output Total 1999 Balance -1999 Weight 182 lb 15.739 oz 183 lb 3.266 oz Last Vital Signs Temp Pulse Resp BP Pulse Ox 98 F 88 14 140/81 99 06/27/20 06:00 06/27/20 11:41 06/27/20 11:42 06/27/20 09:50 06/27/20 11:42 Active Medications Acetaminophen (Tylenol Oral Solution -) 650 mg GT Q4H PRN PRN Reason: PAIN Chlorhexidine Gluconate (Hibiclens For Decolonization -) 1 applic TP HS [facility] Last Admin: 06/26/20 21:12 Dose: 1 applic Documented by: Docusate Sodium (Colace Liquid -) 100 mg GT TID NORRIS Last Admin: 06/27/20 06:04 Dose: 100 mg Documented by: Enoxaparin Sodium (Lovenox -) 40 mg SQ DAILY NORRIS Famotidine (Pepcid) 20 mg PEG DAILY NORRIS Ferrous Sulfate (Feosol) 300 mg GT DAILY [facility] Furosemide (Lasix Injection -) 40 mg IVPUSH BID@0600,1400 [facility] Last Admin: 06/27/20 06:04 Dose: 40 mg Documented by: Propofol (Diprivan -) 1,000,000 mcg in 100 mls @ 2.58 mls/hr IVPB TITR NORRIS; Protocol Last Titration: 06/26/20 18:35 Dose: 0 mcg/kg/min, 0 mls/hr Documented by: Ceftriaxone Sodium 1 gm/ (Dextrose) 50 mls @ 200 mls/hr IVPB DAILY NORRIS; Protocol Last Admin: 06/27/20 11:03 Dose: 200 mls/hr Documented by: Insulin Aspart (Novolog Vial Sliding Scale -) 1 vial SQ Q6H [facility]; Protocol Last Admin: 06/27/20 06:48 Dose: Not Given Documented by: Lacosamide (Vimpat Injection -) 100 mg IVPB BID [facility] Last Admin: 06/27/20 09:58 Dose: 100 mg Documented by: Levetiracetam (Keppra Injection -) 1,250 mg IVPB BID [facility] Last Admin: 06/27/20 11:00 Dose: 1,250 mg Documented by: Losartan Potassium (Cozaar -) 100 mg GT DAILY [facility] Last Admin: 06/27/20 11:04 Dose: 100 mg Documented by: Metoprolol Tartrate (Lopressor -) 12.5 mg GT BID [facility] Last Admin: 06/27/20 10:59 Dose: 12.5 mg Documented by: Mupirocin (Bactroban Ointment (For Decolonization) -) 1 applic NS BID [facility] Stop: 07/01/20 21:59 Last Admin: 06/26/20 21:11 Dose: 1 applic Documented by: Polyethylene Glycol (Miralax (For Daily Use) -) 17 gm GT DAILY [facility] Constitutional: Yes: Vented, poorly responsive Eyes: Yes: Conjunctiva Clear HENT: Yes: Atraumatic, Normocephalic Neck: Yes: Supple, Other (tracheostomy) Cardiovascular: Yes: Regular Rate and Rhythm, S1, S2 Respiratory: Yes: Mechanically Ventilated, Other (tracheostomy) Gastrointestinal: Yes: Normal Bowel Sounds, Soft, Abdomen, Obese, Other (PEG) ...Rectal Exam: Yes: Deferred Renal/: Yes: Neely Present, Incontinence, Other (Chronic neely) Breast(s): Yes: WNL Musculoskeletal: Yes: Muscle Weakness Extremities: Yes: WNL Edema: LUE: 4+, RUE: 4+, LLE: 3+, RLE: 3+ Integumentary: Yes: Other (dry, flaky) Neurological: Yes: Poorly responsive Labs: Laboratory Results - last 24 hr 06/26/20 06/26/20 06/26/20 12:55 12:55 12:55 Sodium 142 Potassium 3.9 Chloride 105 Carbon Dioxide 32 Anion Gap 5 L BUN 11.9 Creatinine 0.5 L Est GFR (CKD-EPI)AfAm 118.62 Est GFR (CKD-EPI)NonAf 102.35 POC Glucometer Random Glucose 125 H Lactic Acid 1.0 Calcium 9.2 Phosphorus Magnesium 2.2 Total Bilirubin 0.3 AST 36 ALT 67 H Alkaline Phosphatase 59 Troponin I < 0.02 B-Natriuretic Peptide 216.0 Total Protein 6.7 Albumin 2.2 L Lipase 141 Urine Color Urine Appearance Urine pH Ur Specific [place] Urine Protein Urine Glucose (UA) Urine Ketones Urine Blood Urine Nitrite Urine Bilirubin Urine Urobilinogen Ur Leukocyte Esterase Urine WBC (Auto) Urine RBC (Auto) Urine Casts (Auto) U Pathogenic Cast Auto U Epithel Cells (Auto) Urine Bacteria (Auto) COVID-19 (NEENA) Blood Type A POSITIVE Antibody Screen Negative 06/26/20 06/26/20 06/26/20 13:07 14:09 14:35 Sodium Potassium Chloride Carbon Dioxide Anion Gap BUN Creatinine Est GFR (CKD-EPI)AfAm Est GFR (CKD-EPI)NonAf POC Glucometer Random Glucose Lactic Acid Calcium Phosphorus 3.4 Magnesium Total Bilirubin AST ALT Alkaline Phosphatase Troponin I B-Natriuretic Peptide Total Protein Albumin Lipase Urine Color Yellow Urine Appearance Turbid Urine pH 7.5 Ur Specific [place] 1.019 Urine Protein 2+ H Urine Glucose (UA) Negative Urine Ketones Negative Urine Blood 3+ H Urine Nitrite Negative Urine Bilirubin Negative Urine Urobilinogen 1.0 Ur Leukocyte Esterase 2+ H Urine WBC (Auto) 399 Urine RBC (Auto) 553 Urine Casts (Auto) 46 U Pathogenic Cast Auto None U Epithel Cells (Auto) 19 Urine Bacteria (Auto) 380 COVID-19 (NEENA) Not detected Blood Type Antibody Screen 06/26/20 06/26/20 06/27/20 19:02 21:07 01:57 Sodium Potassium Chloride Carbon Dioxide Anion Gap BUN Creatinine Est GFR (CKD-EPI)AfAm Est GFR (CKD-EPI)NonAf POC Glucometer 130 131 106 Random Glucose Lactic Acid Calcium Phosphorus Magnesium Total Bilirubin AST ALT Alkaline Phosphatase Troponin I B-Natriuretic Peptide Total Protein Albumin Lipase Urine Color Urine Appearance Urine pH Ur Specific [place] Urine Protein Urine Glucose (UA) Urine Ketones Urine Blood Urine Nitrite Urine Bilirubin Urine Urobilinogen Ur Leukocyte Esterase Urine WBC (Auto) Urine RBC (Auto) Urine Casts (Auto) U Pathogenic Cast Auto U Epithel Cells (Auto) Urine Bacteria (Auto) COVID-19 (NEENA) Blood Type Antibody Screen 06/27/20 06:14 Sodium Potassium Chloride Carbon Dioxide Anion Gap BUN Creatinine Est GFR (CKD-EPI)AfAm Est GFR (CKD-EPI)NonAf POC Glucometer 114 Random Glucose Lactic Acid Calcium Phosphorus Magnesium Total Bilirubin AST ALT Alkaline Phosphatase Troponin I B-Natriuretic Peptide Total Protein Albumin Lipase Urine Color Urine Appearance Urine pH Ur Specific [place] Urine Protein Urine Glucose (UA) Urine Ketones Urine Blood Urine Nitrite Urine Bilirubin Urine Urobilinogen Ur Leukocyte Esterase Urine WBC (Auto) Urine RBC (Auto) Urine Casts (Auto) U Pathogenic Cast Auto U Epithel Cells (Auto) Urine Bacteria (Auto) COVID-19 (NEENA) Blood Type Antibody Screen Imaging - Results X-ray: Image Reviewed (06/26 Personal read: Poor inspiratory effort. Bilateral opacities, some blunting of left costophrenic angle) Cat Scan: Report Reviewed (06/26 Moderate right-sided chronic subdural hematoma. Extensive sinusitis and right mastoiditis. No evidence of acute intracranial pathology.) Problem List - Problems (1) Status epilepticus Code(s): G40.901 - EPILEPSY, UNSP, NOT INTRACTABLE, WITH STATUS EPILEPTICUS (2) Seizure disorder Code(s): G40.909 - EPILEPSY, UNSP, NOT INTRACTABLE, WITHOUT STATUS EPILEPTICUS (3) Seizure disorder as sequela of cerebrovascular accident Code(s): I69.398 - OTHER SEQUELAE OF CEREBRAL INFARCTION; G40.909 - EPILEPSY, UNSP, NOT INTRACTABLE, WITHOUT STATUS EPILEPTICUS (4) Edema Code(s): R60.9 - EDEMA, UNSPECIFIED Qualifiers: Edema type: unspecified Qualified Code(s): R60.9 - Edema, unspecified (5) Tracheostomy dependent Code(s): 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
[2020-06-27] MEDS: POLYETHYLENE GLYCOL 3350 119 GM BTL GT SCH (14:26)
[2020-06-27] MEDS: FAMOTIDINE 40 MG/5 ML ORAL SUSPENSION PEG SCH (14:27)
[2020-06-27] MEDS: FERROUS SO4 300 MG/5 ML ORAL SOLN UNIT DOSE CUPS GT SCH (15:28)
[2020-06-27] MEDS: PROPOFOL 1,000,000 MCG/100 ML VIAL IVPB SCH (15:28)
[2020-06-27] MEDS: MUPIROCIN 2% TOPICAL OINTMENT FOR DECOLONIZATION NS SCH ×2 (15:29→21:10)
[2020-06-27 18:19] LABS: ALBUMIN 2.4 g/dl (3.4-5.0); BILIRUBIN,TOTAL 0.6 mg/dL (0.2-1); BLOOD UREA NITROGEN 9.7 mg/dL (7-18); CALCIUM 9.3 mg/dL (8.5-10.1); CREATININE 0.4 mg/dL (0.55-1.3); PHOSPHOROUS 3.7 mg/dL (2.5-4.9); POTASSIUM 3.3 mmol/L (3.5-5.1); TOT PROT 7.3 g/dl (6.4-8.2)
[2020-06-27] MEDS ORDERED: VANCOMYCIN 1 GM in D5W (PRE-DOCKED) 1,000 MG/250 ML IVPB ONE (18:25)
--- NOTE | 2020-06-27 20:14 | CONS ---
DATE OF CONSULTATION: 06/27/2020 REQUESTING PHYSICIAN: Donna Low NP. CONSULTING PHYSICIAN: Ilia Harden MD, neurosurgery. CHIEF COMPLAINT: Chronic bilateral subdural hematoma. HISTORY OF PRESENT ILLNESS; The patient is an 79-year-old male with a history of extensive cardiovascular disease in the past with strokes, seizure disorder with daily seizure activities, chronic respiratory failure with tracheostomy, peripheral neuropathy, cardiac risk with metabolic/anoxic encephalopathy, and COPD, as well as diabetes, was admitted for status epilepticus. He was at a nursing facility where he was found to have seizure activity in increasing severity and duration. He was sent to the emergency room, for which he received multiple medications of Ativan and Valium without significant improvement in his seizure activity. The seizures eventually improved with propofol infusion. He was not found to be febrile. There is no other recent infection by report. PAST MEDICAL HISTORY: Significant for diabetes, diabetic peripheral neuropathy, hypertension, stroke, cardiac arrest, tracheostomy, seizure activity, metabolic/not significant for encephalopathy. CURRENT MEDICATIONS: Include: 1. Tylenol. 2. Cozaar. 3. Ceftriaxone. 4. Bactroban ointment. 5. Lacosamide. 6. Keppra. 7. Metoprolol. 8. Colace. 9. MiraLAX. 10. Diprivan. 11. Pepcid. 12. NovoLog. 13. Ferrous sulfate. 14. Lasix. ALLERGIES: No known drug allergies. FAMILY HISTORY: Not available. SOCIAL HISTORY: The patient is a sn[facility] resident. It is unknown if he was a drinker previously. He is a reported nonsmoker. REVIEW OF SYSTEMS: Otherwise negative for other major constitutional, head/neck, cardiovascular, pulmonary, gastrointestinal, genitourinary, endocrinologic, neurologic, or psychological problems except for the above. PHYSICAL EXAMINATION: Vital signs: Temperature is 98, blood pressure 140/81 with pulse rate of 93, O2 saturation 99% on 50% FiO2. HEENT: Normocephalic, atraumatic, anicteric. Neck: Tracheostomy in place. Coronary: Mild bradycardia. Lungs: Showed decreased breath sounds at the bases. Abdomen: Obese, benign. Extremities: No obvious signs of DVT except for trace bilateral lower extremity edema. Neurologic: His eyes are closed. He does not follow commands. He is on propofol. Cranial nerves examination shows pupils to be 2 mm, minimally reactive bilaterally. He has a gag. His examination is limited by his lack of cooperation. Motor examination shows minimal movement to pain or voice. Sensory examination difficult to assess. Deep tendon reflexes shows him to have some contractures of the joints and upgoing toes bilaterally. LABORATORY EXAMINATION: Shows white blood cell count of 11.1, hemoglobin 8.3, platelet count 668,000. INR is 1.15, PTT 28.8. Serum sodium is 142 and potassium is 3.8, BUN and creatinine are 11.9 and 0.5 respectively. Lactic acid is 1. Calcium is 9.2. LFTs are generally within normal limits. Troponin is less than 0.02. Urine culture shows normal darrell, blood culture is pending. CT scan of the head demonstrated bilateral chronic subdural fluid collection right greater than left. There is mild cortical mass effect. There is no ventricular dilatation. There is marked periventricular small vessel disease with hypodensities. IMPRESSION: 1. History of cardiac arrest with probable metabolic/anoxic encephalopathy and seizure disorder. 2. Diabetes and diabetic peripheral neuropathy. 3. Chronic obstructive pulmonary disease/asthma. 4. Status post tracheostomy for respiratory failure. RECOMMENDATION: The patient presents with status epilepticus which required multiple medications in order to control his seizure activity. He is on Keppra presently and propofol. Further medication adjustment per neurology service is recommended. With his history of cardiac arrest and anoxic encephalopathy, the patient is likely to continue to have seizure activity. The goal is to minimize the frequency and severity of such occurrences. No neurosurgical intervention is indicated nor recommended for this gentleman's chronic subdural fluid collection. Even though there is some cortical mass effect, the patient's baseline neurological and functional status are so poor that I believe the potential risk of procedure would outweigh the potential benefit. Other causes of decreased seizure threshold such as concurrent infections and metabolic abnormalities. The above was discussed with ICU team at the bedside. ILIA HARDEN M.D. [facility]WIN/[id number] MTDAmaris
[2020-06-27] MEDS: CHLORHEXIDINE GLUCONATE 4% CLEANSER FOR DECOLONIZATION TP SCH (21:09)
[2020-06-27] MEDS: LABETALOL HCL 5 MG/1 ML (100MG/20 ML VIAL) IVPUSH SCH (21:11)
[2020-06-28] MEDS: INSULIN SLIDING SCALE (NOVOLOG) 1 VIAL SQ SCH ×4 (02:20→18:14)
[2020-06-28] MEDS: LABETALOL HCL 5 MG/1 ML (100MG/20 ML VIAL) IVPUSH SCH ×2 (05:14→13:54)
[2020-06-28] MEDS: DOCUSATE NA 100 MG/10 ML UNIT-DOSE CUPS GT SCH ×3 (06:13→22:45)
[2020-06-28] MEDS: FUROSEMIDE 40 MG/4 ML INJECTABLE VIAL IVPUSH SCH ×2 (06:13→13:53)
[2020-06-28] MEDS ORDERED: LORazepam 2 MG/ML SDV VIAL ONE (07:11)
[2020-06-28] MEDS: LORazepam 2 MG/ML SDV VIAL IVPUSH PRN ×2 (07:12→10:30)
[2020-06-28] MEDS ORDERED: VANCOMYCIN 1 GM in D5W (PRE-DOCKED) 1,000 MG/250 ML IVPB ONE (07:50)
[2020-06-28] MEDS ORDERED: LORazepam 2 MG/ML SDV VIAL IVPUSH ONE (07:54)
[2020-06-28] MEDS ORDERED: FUROSEMIDE 40 MG/4 ML INJECTABLE VIAL IVPUSH ONE (08:22)
--- NOTE | 2020-06-28 08:56 | PN ---
Progress Note, Physician - Current Medication List Current Medications: Active Medications Acetaminophen (Tylenol Oral Solution -) 650 mg GT Q4H PRN PRN Reason: PAIN Chlorhexidine Gluconate (Hibiclens For Decolonization -) 1 applic TP HS [facility] Last Admin: 06/27/20 21:09 Dose: 1 applic Documented by: Docusate Sodium (Colace Liquid -) 100 mg GT TID [facility] Last Admin: 06/28/20 06:13 Dose: 100 mg Documented by: Enoxaparin Sodium (Lovenox -) 40 mg SQ DAILY [facility] Famotidine (Pepcid) 20 mg PEG DAILY [facility] Last Admin: 06/27/20 14:27 Dose: 20 mg Documented by: Ferrous Sulfate (Feosol) 300 mg GT DAILY [facility] Last Admin: 06/27/20 15:28 Dose: Not Given Documented by: Furosemide (Lasix Injection -) 40 mg IVPUSH BID@0600,1400 [facility] Last Admin: 06/28/20 06:13 Dose: 40 mg Documented by: Ceftriaxone Sodium 1 gm/ (Dextrose) 50 mls @ 200 mls/hr IVPB DAILY [facility]; Protocol Last Admin: 06/27/20 11:03 Dose: 200 mls/hr Documented by: Insulin Aspart (Novolog Vial Sliding Scale -) 1 vial SQ Q6H [facility]; Protocol Last Admin: 06/28/20 06:19 Dose: Not Given Documented by: Labetalol HCl (Normodyne Injection -) 10 mg IVPUSH Q8H [facility] Last Admin: 06/28/20 05:14 Dose: 10 mg Documented by: Lacosamide (Vimpat Injection -) 100 mg IVPB BID [facility] Last Admin: 06/27/20 21:11 Dose: 100 mg Documented by: Levetiracetam (Keppra Injection -) 1,250 mg IVPB BID [facility] Last Admin: 06/27/20 21:09 Dose: 1,250 mg Documented by: Lorazepam (Ativan Injection -) 2 mg IVPUSH Q4H PRN PRN Reason: AGITATION Last Admin: 06/28/20 07:12 Dose: 2 mg Documented by: Losartan Potassium (Cozaar -) 100 mg GT DAILY [facility] Last Admin: 06/27/20 11:04 Dose: 100 mg Documented by: Metoprolol Tartrate (Lopressor -) 12.5 mg GT BID [facility] Last Admin: 06/27/20 21:10 Dose: 12.5 mg Documented by: Mupirocin (Bactroban Ointment (For Decolonization) -) 1 applic NS BID [facility] Stop: 07/01/20 21:59 Last Admin: 06/27/20 21:10 Dose: 1 applic Documented by: Polyethylene Glycol (Miralax (For Daily Use) -) 17 gm GT DAILY [facility] Last Admin: 06/27/20 14:26 Dose: 17 gm Documented by: - Objective Vital Signs: Vital Signs Temperature 96.7 F L 06/27/20 21:32 Pulse Rate 96 H 06/28/20 07:00 Respiratory Rate 13 06/28/20 07:00 Blood Pressure 155/71 06/28/20 07:00 O2 Sat by Pulse Oximetry (%) 100 06/28/20 07:00 Cardiovascular: Yes: S1, S2 Respiratory: Yes: Regular, CTA Bilaterally Gastrointestinal: Yes: Normal Bowel Sounds, Soft. No: Tenderness Labs: CBC, BMP 06/26/20 12:55 06/27/20 16:16 INR, PTT INR 1.15 (0.83-1.09) H 06/26/20 12:55 Problem List - Problems (1) Status epilepticus Assessment/Plan: neuro consult appreciated continue with current meds ct head Code(s): G40.901 - EPILEPSY, UNSP, NOT INTRACTABLE, WITH STATUS EPILEPTICUS (2) Seizure disorder Assessment/Plan: ABOVE Meds per Neuro Code(s): G40.909 - EPILEPSY, UNSP, NOT INTRACTABLE, WITHOUT STATUS EPILEPTICUS (3) CVA (cerebral vascular accident) Assessment/Plan: OLD MONITOR Code(s): I63.9 - CEREBRAL INFARCTION, UNSPECIFIED (4) Respiratory failure Assessment/Plan: VENT SETTING PER PULM Code(s): J96.90 - RESPIRATORY FAILURE, UNSP, UNSP W HYPOXIA OR HYPERCAPNIA (5) Anemia Assessment/Plan: FOLLOW TRENDS Code(s): D64.9 - ANEMIA, UNSPECIFIED Qualifiers: Anemia type: unspecified type Qualified Code(s): D64.9 - Anemia, unspecified (6) UTI (urinary tract infection) Assessment/Plan: IV ABX AWAIT CULTURES Code(s): N39.0 - URINARY TRACT INFECTION, SITE NOT SPECIFIED (7) Bacteremia Assessment/Plan: IV ABX FOLLOW CULTURES ADD VANCO ID CONSULT Microbiology 06/26/20 14:09 Blood - Peripheral Venous Blood Culture - Preliminary Pending Organism 06/26/20 14:09 Blood - Peripheral Venous Blood Culture - Preliminary Pending Organism 06/26/20 14:09 Urine - Urine Clean Catch Urine Culture - Final Normal Urogenital Radha Code(s): R78.81 - BACTEREMIA
[2020-06-28] MEDS ORDERED: levETIRAcetam 500 MG/5 ML INJECTION VIAL IVPB ONE (08:57)
[2020-06-28] MEDS ORDERED: DEXTROSE 5%-WATER - 50 ML IVPB ONE ×2 (10:03→17:12)
[2020-06-28] MEDS ORDERED: PT OWN MED DRAWER 7, Y5N ONE (10:03)
[2020-06-28] MEDS ORDERED: cefTRIAXone SODIUM 1 GM VIAL ONE (10:03)
[2020-06-28] MEDS ORDERED: SODIUM CHLORIDE 1,000 ML IV STA (10:06)
[2020-06-28] MEDS ORDERED: PIPERACILLIN/TAZOB 4.5 GM 4.5 GM in DEXTROSE 5%-WATER 100 ML IVPB ONE (10:11)
[2020-06-28] MEDS: VALPROATE SODIUM 500 MG/5 ML VIAL IVPB SCH ×2 (10:25→22:50)
[2020-06-28] MEDS: levETIRAcetam 500 MG/5 ML INJECTION VIAL IVPB SCH ×2 (10:33→23:33)
[2020-06-28] MEDS: METOPROLOL TARTRATE 25 MG TABLET (FP) GT SCH ×3 (10:33→23:33)
[2020-06-28] MEDS: ENOXAPARIN NA (PORCINE) 40 MG/0.4 ML DISP.SYRIN SQ SCH (10:33)
[2020-06-28] MEDS: CEFTRIAXONE 1 GM in DEXTROSE 5%-WATER - 50 ML IVPB SCH (10:35)
[2020-06-28] MEDS: Lacosamide 200 MG/20 ML VIAL IVPB SCH ×2 (10:47→22:50)
--- NOTE | 2020-06-28 12:01 | PN ---
Progress Note (short form) - Note Progress Note: NEUROSURGERY h/o cardiac arrest, ICH, hypertension, asthma, COPD, GERD, DM, neuropathy, s/p tracheostomy, seizures, metabolic/anoxic encephalopathy was nonverbal at baseline and presented to the ED from [facility] with a seizure. Patient was having one of his daily seizures but the sz activoty persisted the day of admission. In ED patient was treated with diazepam, ativan and Keppra then propofol infusion finally with sz improvement; spoke to at bedside, who was not aware of his sz issues PE: tamx 100, hypotensive earlier General- trach in place CN- intact; Motor- minimal movement; Sensation- difficult to assess; DTR- toes upgoing B WBC 12; blood culture- gram + cocci in clusters CT head- R > L chronic subdural fluid collection with minimal mass effect, periventricular small vessel dz, atrophy Chronic SDH R > L Seizure disorder (metabolic/anoxic encephalopathy) Gram + bacteremia (could have lowered sz threshold), on vanco and zosyn for coverage Further anticonvulsant adjustments and optimized sz management per neurology Overall poor baseline condition and functional status Neurosurgical intervention not recommended
--- NOTE | 2020-06-28 12:16 | PN ---
Progress Note (short form) - Note Progress Note: ID CONSULT DICTATED + BC GPCCL R/O STAPH SEPSIS LOW GRADE TEMP, HYPOTENSIVE EPISODE R/O SEPSIS SEIZURES R/O ASP PNEUMONIA CHRONIC RESP FAILURE S/P CARDIOPULMONARY ARREST HX SDH NEUROGEMIC BLADDER/ CHRONIC GILLIS UTI ? SEPSIS SECONDARY TO UTI AWAIT BC REPEAT BC OBTAINED EMPIRIC VANCOMYCIN/ ZOSYN CRITICAL CARE TIME 35MIN
[2020-06-28] MEDS: LOSARTAN POTASSIUM 50 MG TABLET (FP) GT SCH (12:46)
[2020-06-28] MEDS: MUPIROCIN 2% TOPICAL OINTMENT FOR DECOLONIZATION NS SCH ×2 (12:46→23:20)
[2020-06-28] MEDS: FAMOTIDINE 40 MG/5 ML ORAL SUSPENSION PEG SCH (12:49)
[2020-06-28] MEDS: POLYETHYLENE GLYCOL 3350 119 GM BTL GT SCH (12:49)
[2020-06-28] MEDS: FERROUS SO4 300 MG/5 ML ORAL SOLN UNIT DOSE CUPS GT SCH (12:49)
--- NOTE | 2020-06-28 13:06 | ECHO ---
Version: 1 Name: BRIAN LEONE Exam: Adult Echocardiogram Study Date: 06/28/2020, 8:15 AM Age: 79 Years MMode/2D Measurements & Calculations IVSd: 1.26 cm LVIDs: 2.6 cm LVIDd: 4.2 cm LVPWd: 1.12 cm LAV (MOD-bp): 41.1 ml LVOT diam: 2.05 cm Ao root diam: 2.9 cm LA dimension: 3.3 cm Doppler Measurements & Calculations MV E max faizan: 56.3 cm/sec Med E/e': 21.6 MV A max faizan: 107.1 cm/sec Med Peak E' Faizan: 2.6 cm/sec MV E/A: 0.53 Lat E/e': 12.3 Lat Peak E' Faizan: 4.6 cm/sec MR max P.5 mmHg Ao max P.2 mmHg Ao V2 max: 143.3 cm/sec AI P1/2t: 719.6 msec TR max faizan: 315.2 cm/sec TR max P.1 mmHg Procedure The study was technically difficult with many images being suboptimal in quality. Left Ventricle The left ventricle is grossly normal size. There is mild concentric left ventricular hypertrophy. Ej ection Fraction = 70%. The transmitral spectral Doppler flow pattern is suggestive of impaired LV relaxatio n. Right Ventricle The right ventricle is normal in size and function. Atria Normal left and right atrial size and function. Mitral Valve The mitral valve is grossly normal. There is no mitral regurgitation noted. Tricuspid Valve The tricuspid valve is not well visualized, but is grossly normal. There is mild tricuspid regurgita tion. Aortic Valve The aortic valve is normal in structure and function. Pulmonic Valve The pulmonic valve is not well seen, but is grossly normal. Mild pulmonic valvular regurgitation. Great Vessels The aortic root is normal size. Normal aortic arch, descending and ascending aorta. Pericardium/Pleura There is no pericardial effusion. Summary Statements The study was technically difficult with many images being suboptimal in quality. The left ventricle is grossly normal size. There is mild concentric left ventricular hypertrophy. Ejection Fraction = 70%. The transmitral spectral Doppler flow pattern is suggestive of impaired LV relaxation. The right ventricle is normal in size and function. Normal left and right atrial size and function. The mitral valve is grossly normal. There is no mitral regurgitation noted. The tricuspid valve is not well visualized, but is grossly normal. There is mild tricuspid regurgitation. The aortic valve is normal in structure and function. The pulmonic valve is not well seen, but is grossly normal. Mild pulmonic valvular regurgitation. The aortic root is normal size. Normal aortic arch, descending and ascending aorta There is no pericardial effusion. [place] 06/28/2020, 1:06 PM Ordering Physician: Lisbet Arguelles Performed By: Mojgan Mckeon
[2020-06-28] MEDS ORDERED: LABETALOL HCL 5 MG/1 ML (100MG/20 ML VIAL) IVPUSH PRN (13:47)
--- NOTE | 2020-06-28 14:12 | PN ---
Teaching Attending Note Name of Resident: Leigh Espinosa ATTENDING PHYSICIAN STATEMENT I saw and evaluated the patient. I reviewed the resident's note and discussed the case with the resident. I agree with the resident's findings and plan as documented. SUBJECTIVE: Patient seen and examined in the ICU. Poorly responsive on AC mode of vent. Seizure activity overnight. Intake & Output 06/25/20 06/26/20 06/27/20 06/28/20 23:59 23:59 23:59 23:59 Intake Total 320 227 Output Total 4000 1550 Balance -3680 -1323 Weight 182 lb 15.739 oz 183 lb 3.266 oz 182 lb Last Vital Signs Temp Pulse Resp BP Pulse Ox 98.7 F 86 15 142/78 100 06/28/20 11:30 06/28/20 13:37 06/28/20 13:37 06/28/20 13:37 06/28/20 13:37 Active Medications Acetaminophen (Tylenol Oral Solution -) 650 mg GT Q4H PRN PRN Reason: PAIN Chlorhexidine Gluconate (Hibiclens For Decolonization -) 1 applic TP HS [facility] Last Admin: 06/27/20 21:09 Dose: 1 applic Documented by: Docusate Sodium (Colace Liquid -) 100 mg GT TID [facility] Last Admin: 06/28/20 13:53 Dose: 100 mg Documented by: Enoxaparin Sodium (Lovenox -) 40 mg SQ DAILY [facility] Last Admin: 06/28/20 10:33 Dose: 40 mg Documented by: Famotidine (Pepcid) 20 mg PEG DAILY [facility] Last Admin: 06/28/20 12:49 Dose: 20 mg Documented by: Ferrous Sulfate (Feosol) 300 mg GT DAILY [facility] Last Admin: 06/28/20 12:49 Dose: 300 mg Documented by: Furosemide (Lasix Injection -) 40 mg IVPUSH BID@0600,1400 [facility] Last Admin: 06/28/20 13:53 Dose: 40 mg Documented by: Piperacillin Sod/Tazobactam (Sod 3.375 gm/ Dextrose) 50 mls @ 100 mls/hr IVPB Q8H-IV [facility]; Protocol Vancomycin HCl (Vancomycin (Pre-Docked)) 1,000 mg in 250 mls @ 166.667 mls/hr IVPB Q12H [facility]; Protocol Insulin Aspart (Novolog Vial Sliding Scale -) 1 vial SQ Q6H [facility]; Protocol Last Admin: 06/28/20 12:30 Dose: Not Given Documented by: Labetalol HCl (Normodyne Injection -) 10 mg IVPUSH Q8H PRN PRN Reason: HYPERTENSION Lacosamide (Vimpat Injection -) 100 mg IVPB BID [facility] Last Admin: 06/28/20 10:47 Dose: 100 mg Documented by: Levetiracetam (Keppra Injection -) 1,250 mg IVPB BID [facility] Last Admin: 06/28/20 10:33 Dose: 1,250 mg Documented by: Lorazepam (Ativan Injection -) 2 mg IVPUSH Q4H PRN PRN Reason: AGITATION Last Admin: 06/28/20 07:12 Dose: 2 mg Documented by: Losartan Potassium (Cozaar -) 100 mg GT DAILY [facility] Last Admin: 06/28/20 12:46 Dose: 100 mg Documented by: Metoprolol Tartrate (Lopressor -) 12.5 mg GT BID [facility] Last Admin: 06/28/20 12:47 Dose: 12.5 mg Documented by: Mupirocin (Bactroban Ointment (For Decolonization) -) 1 applic NS BID [facility] Stop: 07/01/20 21:59 Last Admin: 06/28/20 12:46 Dose: 1 applic Documented by: Polyethylene Glycol (Miralax (For Daily Use) -) 17 gm GT DAILY [facility] Last Admin: 06/28/20 12:49 Dose: 17 gm Documented by: Valproate Sodium (Depacon Injection -) 750 mg IVPB BID [facility] Last Admin: 06/28/20 10:25 Dose: 750 mg Documented by: Constitutional: Yes: Vented, poorly responsive Eyes: Yes: Conjunctiva Clear HENT: Yes: Atraumatic, Normocephalic Neck: Yes: Supple, Other (tracheostomy) Cardiovascular: Yes: Regular Rate and Rhythm, S1, S2 Respiratory: Yes: Mechanically Ventilated, Other (tracheostomy) Gastrointestinal: Yes: Normal Bowel Sounds, Soft, Abdomen, Obese, Other (PEG) ...Rectal Exam: Yes: Deferred Renal/: Yes: Neely Present, Incontinence, Other (Chronic neely) Breast(s): Yes: WNL Musculoskeletal: Yes: Muscle Weakness Extremities: Yes: WNL Edema: LUE: 4+, RUE: 4+, LLE: 3+, RLE: 3+ Integumentary: Yes: Other (dry, flaky) Neurological: Yes: Poorly responsive Labs: Laboratory Results - last 24 hr 06/27/20 06/27/20 06/27/20 15:35 16:16 18:12 Sodium 141 Potassium 3.3 L Chloride 103 Carbon Dioxide 28 Anion Gap 9 BUN 9.7 Creatinine 0.4 L Est GFR (CKD-EPI)AfAm 130.02 Est GFR (CKD-EPI)NonAf 112.18 POC Glucometer 102 112 Random Glucose 130 H Calcium 9.3 Phosphorus 3.7 Magnesium 2.0 Total Bilirubin 0.6 AST 32 ALT 64 H Alkaline Phosphatase 59 Total Protein 7.3 Albumin 2.4 L 06/27/20 06/28/20 06/28/20 21:27 06:18 12:35 Sodium Potassium Chloride Carbon Dioxide Anion Gap BUN Creatinine Est GFR (CKD-EPI)AfAm Est GFR (CKD-EPI)NonAf POC Glucometer 127 102 128 Random Glucose Calcium Phosphorus Magnesium Total Bilirubin AST ALT Alkaline Phosphatase Total Protein Albumin Imaging - Results X-ray: Image Reviewed (06/26 Personal read: Poor inspiratory effort. Bilateral opacities, some blunting of left costophrenic angle) Cat Scan: Report Reviewed (06/26 Moderate right-sided chronic subdural hematoma. Extensive sinusitis and right mastoiditis. No evidence of acute intracranial pathology.) Problem List - Problems (1) Status epilepticus Code(s): G40.901 - EPILEPSY, UNSP, NOT INTRACTABLE, WITH STATUS EPILEPTICUS (2) Seizure disorder Code(s): G40.909 - EPILEPSY, UNSP, NOT INTRACTABLE, WITHOUT STATUS EPILEPTICUS (3) Seizure disorder as sequela of cerebrovascular accident Code(s): I69.398 - OTHER SEQUELAE OF CEREBRAL INFARCTION; G40.909 - EPILEPSY, UNSP, NOT INTRACTABLE, WITHOUT STATUS EPILEPTICUS (4) Edema Code(s): R60.9 - EDEMA, UNSPECIFIED Qualifiers: Edema type: unspecified Qualified Code(s): R60.9 - Edema, unspecified (5) Tracheostomy dependent Code(s): Z93.0 - TRACHEOSTOMY STATUS (6) Chronic indwelling Neely catheter Code(s): Z97.8 - PRESENCE OF OTHER SPECIFIED DEVICES Assessment/Plan -AEDs per Neuro -Ativan PRN -Lasix -AC Mode of vent -Titrate FiO2 for saO2 >92%% -ABX per ID -Enteral feeds -Follow BGM -DVT prophylaxis -GI prophylaxis -Vent floor Dr Zarate
[2020-06-28 14:17] LABS: BASO % 0.5 % (0-2.0); EOS % 0.9 % (0-4.5); HEMATOCRIT 30.4 % (35.4-49); HEMOGLOBIN 9.1 GM/dL (11.7-16.9); LYMPH % 15.3 % (8-40); MCH 25.3 pg (25.7-33.7); MEAN CELL VOLUME 84.1 fl (80-96); MONO % 7.4 % (3.8-10.2); NEUT % 75.9 % (42.8-82.8); PLATELET COUNT 696 K/MM3 (134-434); RBC 3.61 M/mm3 (4.00-5.60); RDW 17.6 % (11.9-15.9)
--- NOTE | 2020-06-28 14:18 | PN ---
Physical Exam: SUBJECTIVE: Patient seen and examined at bedside. pt has trach. pt seen having active seizure. pt seizure presents as twitching of shoulder and face ( lip twitch) OBJECTIVE: Vital Signs Period Temp Pulse Resp BP Sys/Canela Pulse Ox Last 24 Hr 96.7 F-100.0 F 78-100 12-23 55-177/41-90 98-100 GENERAL: The patient is non verbally responsive but responds to pain HEAD: Normal with no signs of trauma. Neck: trached to vent LUNGS: L side breath sounds diminished. scattered wheezes. HEART: Regular rate and rhythm, S1, S2 ABDOMEN: Soft, nondistended, normoactive bowel sounds, no guarding EXTREMITIES: 2+ pulses, warm, well-perfused, no edema. SKIN: Warm, dry, normal turgor, no rashes or lesions noted Laboratory Results - last 24 hr 06/27/20 06/27/20 06/27/20 15:35 16:16 18:12 Sodium 141 Potassium 3.3 L Chloride 103 Carbon Dioxide 28 Anion Gap 9 BUN 9.7 Creatinine 0.4 L Est GFR (CKD-EPI)AfAm 130.02 Est GFR (CKD-EPI)NonAf 112.18 POC Glucometer 102 112 Random Glucose 130 H Calcium 9.3 Phosphorus 3.7 Magnesium 2.0 Total Bilirubin 0.6 AST 32 ALT 64 H Alkaline Phosphatase 59 Total Protein 7.3 Albumin 2.4 L Active Medications Generic Name Dose Route Start Last Admin Trade Name Freq PRN Reason Stop Dose Admin Acetaminophen 650 mg 06/26/20 16:11 Tylenol Oral Solution - GT Q4H PRN PAIN Chlorhexidine Gluconate 1 applic 06/26/20 22:00 06/27/20 21:09 Hibiclens For Decolonization - TP 1 applic HS NORRIS Administration Docusate Sodium 100 mg 06/26/20 22:00 06/28/20 13:53 Colace Liquid - GT 100 mg TID NORRIS Administration Enoxaparin Sodium 40 mg 06/28/20 10:00 06/28/20 10:33 Lovenox - SQ 40 mg DAILY NORRIS Administration Famotidine 20 mg 06/27/20 10:00 06/28/20 12:49 Pepcid PEG 20 mg DAILY NORRIS Administration Ferrous Sulfate 300 mg 06/27/20 10:00 06/28/20 12:49 Feosol GT 300 mg DAILY NORRIS Administration Furosemide 40 mg 06/27/20 06:00 06/28/20 13:53 Lasix Injection - IVPUSH 40 mg BID@0600,1400 NORRIS Administration Piperacillin Sod/Tazobactam 50 mls @ 100 mls/hr 06/28/20 18:00 Sod 3.375 gm/ Dextrose IVPB Q8H-IV NORRIS Protocol Vancomycin HCl 1,000 mg in 250 mls @ 166.667 mls/hr 06/28/20 20:00 Vancomycin (Pre-Docked) IVPB Q12H NORRIS Protocol Insulin Aspart 1 vial 06/26/20 18:31 06/28/20 12:30 Novolog Vial Sliding Scale - SQ Not Given Q6H NORRIS Protocol Labetalol HCl 10 mg 06/28/20 13:47 Normodyne Injection - IVPUSH Q8H PRN HYPERTENSION Lacosamide 100 mg 06/27/20 10:00 06/28/20 10:47 Vimpat Injection - IVPB 100 mg BID NORRIS Administration Levetiracetam 1,250 mg 06/26/20 22:00 06/28/20 10:33 Keppra Injection - IVPB 1,250 mg BID NORRIS Administration Lorazepam 2 mg 06/28/20 06:56 06/28/20 07:12 Ativan Injection - IVPUSH 2 mg Q4H PRN Administration AGITATION Losartan Potassium 100 mg 06/27/20 10:00 06/28/20 12:46 Cozaar - GT 100 mg DAILY NORRIS Administration Metoprolol Tartrate 12.5 mg 06/26/20 22:00 06/28/20 12:47 Lopressor - GT 12.5 mg BID NORRIS Administration Mupirocin 1 applic 06/26/20 22:00 06/28/20 12:46 Bactroban Ointment (For Decolonization) - NS 07/01/20 21:59 1 applic BID NORRIS Administration Polyethylene Glycol 17 gm 06/27/20 10:00 06/28/20 12:49 Miralax (For Daily Use) - GT 17 gm DAILY NORRIS Administration Valproate Sodium 750 mg 06/28/20 10:00 06/28/20 10:25 Depacon Injection - IVPB 750 mg BID NORRIS Administration ASSESSMENT/PLAN: 79 yo M PMH of cardiac arrest, ICH, dysphagia, hypertension, asthma, GERD, T1DM, neuropathy, COPD( s/p tracheostomy), seizure d/o ,chronic neely (changed every third Sat), and nonverbal at baseline who presents to the ED via EMS from [facility] with a seizure.pt currently off propofol . had seizure this am Neuro: seizures 2/2 Acute toxic metabolic encephalopathy, seizure d/o - s/p propofol drip. currently off propofol, ativan for breakthrough seizure- responds well - keppra increased to 1250 bid. c/w vimpat . added depacon today -neuro recs ( Dr. Luna ) appreciated. neurosurg recs appreciated, no neurosurgical intervention recommended at this time - pending EEG read. - head CT negative for acute pathology, rpt head CT reviewed : No significant interval change. Chronic right subdural collection/hygroma and likely a smaller one on the left. Generalized volume loss with extensive periventricular chronic microvascular ischemic disease zaldivar ges. No gross CT evidence of an acute process is identified. Chronic sinusitis mainly involving the left maxillary antrum -pt is at baseline mental status. - aspiration precautions Cardio - cardio, Dr. Canales , consulted - c/w lasix 40 IVP bid -cont to monitor BP. today pt had hypotensive episode but responded to fluid bolus. will put parameter to hold antihypertensives. Pulm - trached to vent -A/C TV 400, RR 12, FiO2 50, PEEP 5 -CXR reviewed, likely atelectasis. cont to monitor ID -+ UA. blood culture prelim positive for gram + cocci. ; on vanc day 2 . started zosyn. ID consulted Endo T1DM - BGM , ISS Urology - chronic neely GI GERD - c/w pepcid DVT ppx: lovenox daily GIppx: pepcid 20 mg daily Stable for downgrade to vent unit. pt is at baseline mental status. spoke with son regarding goals of care. he states that he is going to speak with his mother regarding code status, advance directives. he requests call back in the morning. Visit type - Emergency Visit Emergency Visit: No - New Patient This patient is new to me today: No - Critical Care Critical Care patient: Yes Total Critical Care Time (in minutes): 38 Critical Care Statement: The care of this patient involved high complexity decision making to prevent further life threatening deterioration of the patient's condition and/or to evaluate & treat vital organ system(s) failure or risk of failure. - Discharge Referral Referred to [facility] No - Medication Review Med list reviewed for High Risk Meds patients 65 and older: Yes ATTENDING PHYSICIAN STATEMENT I saw and evaluated the patient. I reviewed the resident's note and discussed the case with the resident. I agree with the resident's findings and plan as documented. SUBJECTIVE: OBJECTIVE: ASSESSMENT AND PLAN:
--- NOTE | 2020-06-28 14:30 | CONS ---
INFECTIOUS DISEASE CONSULTATION DATE OF CONSULTATION: DATE OF DICTATION: 06/28/2020 HISTORY: The patient is an 79-year-old male who was evaluated for sepsis. History was obtained from the chart. He is presently in the intensive care unit on mechanical ventilation. He has a history of cardiopulmonary arrest and cerebral hemorrhage. He is nonverbal at baseline. He was admitted from a detention facility on June 26, 2020, after continuous seizure activity. According to the notes, he does have daily seizures. However, this most recent episode was more prolonged than usual and did not respond to medication. He was brought to the emergency room where a CAT scan of the head was performed. It showed no acute changes. He did have evidence of a chronic right-sided subdural hematoma as well as sinusitis and right mastoiditis. He was seen in consultation by Neurology and felt to have status epilepticus. He has been on anticonvulsant therapy. Today the patient was noted to have a low grade fever of 100 and a precipitous drop in blood pressure to 55/41. It was unclear whether this was an accurate reading. Blood cultures growing out gram-positive cocci in clusters in 2 out of 4 bottles. PAST MEDICAL HISTORY: Positive for cardiopulmonary arrest, chronic respiratory failure, history of intracranial hemorrhage, subdural hematoma, hypertension, asthma, gastroesophageal reflux, diabetes mellitus, COPD, seizure disorder, neurogenic bladder with chronic indwelling Bryant catheter changed every 3 weeks. PAST SURGICAL HISTORY: Status post tracheostomy. ALLERGIES: No known allergies. MEDICATIONS AT THE PRESENT TIME: Include vancomycin, ceftriaxone, Zosyn, Lovenox, Feosol, labetalol, losartan, metoprolol, valproic acid, Ativan, Lasix, Pepcid. SOCIAL HISTORY: He resides in a detention facility, has chronic respiratory failure, totally dependent in activities of daily living, nonverbal at baseline. Tobacco and alcohol use history not known. SYSTEMS REVIEW: Neurologic: As per HPI. Cardiac: Status post cardiopulmonary arrest. Respiratory: Chronic respiratory failure. Gastrointestinal: Negative vomiting or diarrhea. Genitourinary: Neurogenic bladder with indwelling chronic Bryant catheter. LABORATORY DATA: White count 11.1, neutrophils 61, lymphocytes 26, monocytes 9, hematocrit 26.4, platelets 668. Creatinine 0.4, total bilirubin 0.6, alkaline phosphatase 59, AST 32, ALT 64. COVID-19 PCR negative. Blood cultures gram-positive cocci in clusters in 2 out of 4 bottles. Chest x-ray shows bibasilar infiltrates, left greater than right. Urine analysis 399 white cells, 553 red cells. PHYSICAL EXAMINATION: General: He is not verbally responsive, sedated on the ventilator. Vital Signs: T-max 100, blood pressure 138/68, pulse 85 regular, respirations 18 per minute. HEENT: Sclerae are anicteric. Neck: Patient is status post tracheostomy. Heart: Sounds S1, S2. Lungs: Air entry bilaterally. Abdomen: Obese, soft, nontender. Extremities: Positive for edema. Skin: Appears intact. IMPRESSION: 1. Positive blood cultures, rule out staphylococcus sepsis. 2. Low grade fever, hypotensive episode, rule out sepsis. 3. Rule out aspiration pneumonia. 4. Status epilepticus. 5. Chronic respiratory failure. 6. Status post cardiopulmonary arrest. 7. History of subdural hematoma. 8. Neurogenic bladder with chronic indwelling Bryant catheter. 9. Urinary tract infection, rule out sepsis secondary to urinary tract infection. Await culture results. Empiric antibiotic coverage with vancomycin and Zosyn. Repeat blood cultures have been obtained. Continue ventilatory and hemodynamic support. Critical care time spent 35 minutes. Thank you for the kind referral. MASOUD JENKINS M.D. [id number]
[2020-06-28 14:53] LABS: ALBUMIN 2.2 g/dl (3.4-5.0); BILIRUBIN,TOTAL 0.7 mg/dL (0.2-1); BLOOD UREA NITROGEN 10.8 mg/dL (7-18); CALCIUM 9.1 mg/dL (8.5-10.1); CREATININE 0.6 mg/dL (0.55-1.3); MAGNESIUM 1.8 mg/dL (1.8-2.4); POTASSIUM 3.2 mmol/L (3.5-5.1); TOT PROT 6.9 g/dl (6.4-8.2)
[2020-06-28] MEDS: KCL 10 MEQ IVPB 10 MEQ/100 ML INFUS.BAG IVPB SCH ×3 (16:16→19:29)
[2020-06-28] MEDS ORDERED: PIPERACILLIN/TAZOBACTAM 3.375 GM VIAL IVPB ONE (17:12)
[2020-06-28] MEDS: PIPERACILLIN/TAZOB 3.375 GM 3.375 GM in DEXTROSE 5%-WATER - 50 ML IVPB SCH (17:24)
[2020-06-28] MEDS: VANCOMYCIN 1 GRAM (PRE-DOCKED) 1,000 MG/250 ML BAG IVPB SCH (20:00)
[2020-06-28] MEDS: CHLORHEXIDINE GLUCONATE 4% CLEANSER FOR DECOLONIZATION TP SCH (21:00)
[2020-06-29] MEDS: INSULIN SLIDING SCALE (NOVOLOG) 1 VIAL SQ SCH ×5 (00:49→23:35)
[2020-06-29] MEDS ORDERED: PIPERACILLIN/TAZOBACTAM 3.375 GM VIAL IVPB ONE ×3 (02:09→17:01)
[2020-06-29] MEDS ORDERED: DEXTROSE 5%-WATER - 50 ML IVPB ONE ×3 (02:10→17:01)
[2020-06-29] MEDS: PIPERACILLIN/TAZOB 3.375 GM 3.375 GM in DEXTROSE 5%-WATER - 50 ML IVPB SCH ×3 (02:11→17:02)
[2020-06-29] MEDS: DOCUSATE NA 100 MG/10 ML UNIT-DOSE CUPS GT SCH ×3 (06:01→22:34)
[2020-06-29] MEDS: FUROSEMIDE 40 MG/4 ML INJECTABLE VIAL IVPUSH SCH ×2 (06:01→13:05)
[2020-06-29 06:20] LABS: ARTERIAL BLD GAS O2 SATURATION 97.6 mmHg (95-98); ARTERIAL BLOOD GAS BASE EXCESS 6.6 mmol/L (-2-2); ARTERIAL BLOOD GAS PO2 91.7 mmHg (80-100); ARTERIAL BLOOD GAS pH 7.495 (7.350-7.450)
[2020-06-29 06:28] LABS: VENT MODE A/C; VENT RATE 12
[2020-06-29 07:22] LABS: BASO % 0.6 % (0-2.0); EOS % 3.1 % (0-4.5); HEMOGLOBIN 8.2 GM/dL (11.7-16.9); LYMPH % 25.3 % (8-40); MCH 26.3 pg (25.7-33.7); MCHC 31.5 g/dl (32.0-35.9); MEAN CELL VOLUME 83.6 fl (80-96); MEAN PLT VOLUME 7.4 fl (7.5-11.1); MONO % 10.3 % (3.8-10.2); NEUT % 60.7 % (42.8-82.8); PLATELET COUNT 628 K/MM3 (134-434); RBC 3.11 M/mm3 (4.00-5.60); RDW 17.5 % (11.9-15.9); WHITE BLOOD COUNT 9.3 K/mm3 (4.0-10.0)
[2020-06-29 07:39] LABS: CALCIUM 8.9 mg/dL (8.5-10.1); POTASSIUM 3.2 mmol/L (3.5-5.1)
[2020-06-29 07:45] LABS: ALBUMIN 1.9 g/dl (3.4-5.0); BILIRUBIN,TOTAL 1.1 mg/dL (0.2-1); BLOOD UREA NITROGEN 11.6 mg/dL (7-18); CREATININE 0.5 mg/dL (0.55-1.3); MAGNESIUM 1.8 mg/dL (1.8-2.4); PHOSPHOROUS 3.5 mg/dL (2.5-4.9); TOT PROT 6.2 g/dl (6.4-8.2)
--- NOTE | 2020-06-29 08:21 | PN ---
Progress Note, Physician - Current Medication List Current Medications: Active Medications Acetaminophen (Tylenol Oral Solution -) 650 mg GT Q4H PRN PRN Reason: PAIN Chlorhexidine Gluconate (Hibiclens For Decolonization -) 1 applic TP HS [facility] Last Admin: 06/28/20 21:00 Dose: 1 applic Documented by: Docusate Sodium (Colace Liquid -) 100 mg GT TID [facility] Last Admin: 06/29/20 06:01 Dose: 100 mg Documented by: Enoxaparin Sodium (Lovenox -) 40 mg SQ DAILY [facility] Last Admin: 06/28/20 10:33 Dose: 40 mg Documented by: Famotidine (Pepcid) 20 mg PEG DAILY [facility] Last Admin: 06/28/20 12:49 Dose: 20 mg Documented by: Ferrous Sulfate (Feosol) 300 mg GT DAILY [facility] Last Admin: 06/28/20 12:49 Dose: 300 mg Documented by: Furosemide (Lasix Injection -) 40 mg IVPUSH BID@0600,1400 [facility] Last Admin: 06/29/20 06:01 Dose: 40 mg Documented by: Piperacillin Sod/Tazobactam (Sod 3.375 gm/ Dextrose) 50 mls @ 100 mls/hr IVPB Q8H-IV NORRIS; Protocol Last Admin: 06/29/20 02:11 Dose: 100 mls/hr Documented by: Vancomycin HCl (Vancomycin (Pre-Docked)) 1,000 mg in 250 mls @ 166.667 mls/hr IVPB Q12H NORRIS; Protocol Last Admin: 06/28/20 20:00 Dose: 166.667 mls/hr Documented by: Insulin Aspart (Novolog Vial Sliding Scale -) 1 vial SQ Q6H [facility]; Protocol Last Admin: 06/29/20 05:59 Dose: Not Given Documented by: Labetalol HCl (Normodyne Injection -) 10 mg IVPUSH Q8H PRN PRN Reason: HYPERTENSION Lacosamide (Vimpat Injection -) 100 mg IVPB BID [facility] Last Admin: 06/28/20 22:50 Dose: 100 mg Documented by: Levetiracetam (Keppra Injection -) 1,250 mg IVPB BID [facility] Last Admin: 06/28/20 23:33 Dose: 1,250 mg Documented by: Lorazepam (Ativan Injection -) 2 mg IVPUSH Q4H PRN PRN Reason: AGITATION Last Admin: 06/28/20 10:30 Dose: 2 mg Documented by: Losartan Potassium (Cozaar -) 100 mg GT DAILY [facility] Last Admin: 06/28/20 12:46 Dose: 100 mg Documented by: Metoprolol Tartrate (Lopressor -) 12.5 mg GT BID [facility] Last Admin: 06/28/20 23:33 Dose: 12.5 mg Documented by: Mupirocin (Bactroban Ointment (For Decolonization) -) 1 applic NS BID [facility] Stop: 07/01/20 21:59 Last Admin: 06/28/20 23:20 Dose: 1 applic Documented by: Polyethylene Glycol (Miralax (For Daily Use) -) 17 gm GT DAILY [facility] Last Admin: 06/28/20 12:49 Dose: 17 gm Documented by: Valproate Sodium (Depacon Injection -) 750 mg IVPB BID [facility] Last Admin: 06/28/20 22:50 Dose: 750 mg Documented by: - Objective Vital Signs: Vital Signs Temperature 99 F 06/29/20 07:00 Pulse Rate 85 06/29/20 07:00 Respiratory Rate 13 06/29/20 07:00 Blood Pressure 113/60 06/29/20 07:00 O2 Sat by Pulse Oximetry (%) 100 06/29/20 07:00 Cardiovascular: Yes: S1, S2 Respiratory: Yes: Mechanically Ventilated Gastrointestinal: Yes: Normal Bowel Sounds, Soft Labs: CBC, BMP 06/29/20 05:45 06/29/20 06:00 INR, PTT INR 1.15 (0.83-1.09) H 06/26/20 12:55 Problem List - Problems (1) Status epilepticus Assessment/Plan: neuro consult appreciated continue with current meds ct head Code(s): G40.901 - EPILEPSY, UNSP, NOT INTRACTABLE, WITH STATUS EPILEPTICUS (2) Seizure disorder Assessment/Plan: ABOVE Meds per Neuro Code(s): G40.909 - EPILEPSY, UNSP, NOT INTRACTABLE, WITHOUT STATUS EPILEPTICUS (3) CVA (cerebral vascular accident) Assessment/Plan: OLD MONITOR Code(s): I63.9 - CEREBRAL INFARCTION, UNSPECIFIED (4) Respiratory failure Assessment/Plan: VENT SETTING PER PULM Code(s): J96.90 - RESPIRATORY FAILURE, UNSP, UNSP W HYPOXIA OR HYPERCAPNIA (5) Anemia Assessment/Plan: FOLLOW TRENDS Code(s): D64.9 - ANEMIA, UNSPECIFIED Qualifiers: Anemia type: unspecified type Qualified Code(s): D64.9 - Anemia, unspecified (6) UTI (urinary tract infection) Assessment/Plan: IV ABX AWAIT CULTURES Code(s): N39.0 - URINARY TRACT INFECTION, SITE NOT SPECIFIED (7) Bacteremia Assessment/Plan: IV ABX FOLLOW CULTURES ADD VANCO ID CONSULT Microbiology 06/26/20 14:09 Blood - Peripheral Venous Blood Culture - Preliminary Pending Organism 06/26/20 14:09 Blood - Peripheral Venous Blood Culture - Preliminary Pending Organism 06/26/20 14:09 Urine - Urine Clean Catch Urine Culture - Final Normal Urogenital Radha Code(s): R78.81 - BACTEREMIA Assessment/Plan Resume feedings
[2020-06-29] MEDS: VANCOMYCIN 1 GRAM (PRE-DOCKED) 1,000 MG/250 ML BAG IVPB SCH ×2 (09:00→20:09)
[2020-06-29] MEDS: LOSARTAN POTASSIUM 50 MG TABLET (FP) GT SCH (09:03)
[2020-06-29] MEDS: VALPROATE SODIUM 500 MG/5 ML VIAL IVPB SCH ×2 (09:03→23:25)
[2020-06-29] MEDS: levETIRAcetam 500 MG/5 ML INJECTION VIAL IVPB SCH ×2 (09:05→22:35)
[2020-06-29] MEDS: ENOXAPARIN NA (PORCINE) 40 MG/0.4 ML DISP.SYRIN SQ SCH (09:17)
[2020-06-29] MEDS: METOPROLOL TARTRATE 25 MG TABLET (FP) GT SCH ×2 (09:22→22:35)
[2020-06-29] MEDS: POLYETHYLENE GLYCOL 3350 119 GM BTL GT SCH (09:22)
--- NOTE | 2020-06-29 09:29 | PN ---
Progress Note (short form) - Note Progress Note: NEUROSURGERY h/o cardiac arrest, ICH, hypertension, asthma, COPD, GERD, DM, neuropathy, s/p tracheostomy, seizures, metabolic/anoxic encephalopathy was nonverbal at baseline and presented to the ED from [facility] with a seizure. Patient was having one of his daily seizures but the sz activoty persisted the day of admission. In ED patient was treated with diazepam, ativan and Keppra then propofol infusion finally with sz improvement; spoke to at bedside, who was not aware of his sz issues PE: Tmax 99.2, VSS General- trach in place Not obeying commands, grimaces to pain CN- intact; Motor- minimal movement; Sensation- difficult to assess; DTR- toes upgoing B WBC 9.3; blood culture- gram + cocci in clusters CT head- R > L chronic subdural fluid collection with minimal mass effect, periventricular small vessel dz, atrophy Chronic SDH R > L Seizure disorder (metabolic/anoxic encephalopathy) Gram + bacteremia (could have lowered sz threshold), on vanco and zosyn for coverage Anticonvulsant adjustments and optimized sz management per neurology Overall poor baseline neurological condition and functional status Neurosurgical intervention not recommended
[2020-06-29] MEDS: Lacosamide 200 MG/20 ML VIAL IVPB SCH ×2 (09:31→22:36)
[2020-06-29] MEDS: MUPIROCIN 2% TOPICAL OINTMENT FOR DECOLONIZATION NS SCH (09:39)
[2020-06-29] MEDS ORDERED: PT OWN MED DRAWER 7, Y5N ONE ×4 (09:43→23:26)
[2020-06-29] MEDS: FERROUS SO4 300 MG/5 ML ORAL SOLN UNIT DOSE CUPS GT SCH (09:44)
[2020-06-29] MEDS: FAMOTIDINE 40 MG/5 ML ORAL SUSPENSION PEG SCH (09:44)
--- NOTE | 2020-06-29 11:24 | PN ---
Physical Exam: SUBJECTIVE: Patient seen and examined at bedside, pt seen twitching lip. pt is non communicative OBJECTIVE: Vital Signs Period Temp Pulse Resp BP Sys/Canela Pulse Ox Last 24 Hr 98.7 F-99.2 F 78-97 12-21 108-150/60-86 97-100 GENERAL: The patient is somnolent , responds to painful stimuli. trached to vent HEAD: Normal with no signs of trauma. LUNGS: Breath sounds decreased on L. no accessory muscle use. HEART: Regular rate and rhythm, S1, S2 without murmur ABDOMEN: Soft, nondistended, normoactive bowel sounds, no guarding EXTREMITIES: 2+ pulses, warm, well-perfused, no edema. TV 400/ RR 12/ PEEP 5/ FiO2 50 Laboratory Last Values WBC 9.3 K/mm3 (4.0-10.0) 06/29/20 05:45 RBC 3.11 M/mm3 (4.00-5.60) L 06/29/20 05:45 Hgb 8.2 GM/dL (11.7-16.9) L 06/29/20 05:45 Hct 26.0 % (35.4-49) L 06/29/20 05:45 MCV 83.6 fl (80-96) 06/29/20 05:45 MCH 26.3 pg (25.7-33.7) 06/29/20 05:45 MCHC 31.5 g/dl (32.0-35.9) L 06/29/20 05:45 RDW 17.5 % (11.9-15.9) H 06/29/20 05:45 Plt Count 628 K/MM3 (134-434) H 06/29/20 05:45 MPV 7.4 fl (7.5-11.1) L 06/29/20 05:45 Absolute Neuts (auto) 5.6 K/mm3 (1.5-8.0) 06/29/20 05:45 Neutrophils % 60.7 % (42.8-82.8) D 06/29/20 05:45 Lymphocytes % 25.3 % (8-40) D 06/29/20 05:45 Monocytes % 10.3 % (3.8-10.2) H 06/29/20 05:45 Eosinophils % 3.1 % (0-4.5) D 06/29/20 05:45 Basophils % 0.6 % (0-2.0) 06/29/20 05:45 Nucleated RBC % 0 % (0-0) 06/29/20 05:45 PT with INR 13.60 SEC (9.7-13.0) H 06/26/20 12:55 INR 1.15 (0.83-1.09) H 06/26/20 12:55 PTT (Actin FS) 28.8 SECONDS (25.2-36.5) 06/26/20 12:55 Anticoagulation Therapy No Result Required. 06/29/20 06:00 Puncture Site Right radial 06/29/20 06:00 Patient Temperature No Result Required. 06/29/20 06:00 ABG pH 7.495 (7.350-7.450) H 06/29/20 06:00 ABG pCO2 40.30 mmHg (35-45) 06/29/20 06:00 ABG pO2 91.7 mmHg (80-100) 06/29/20 06:00 ABG HCO3 30.4 mmol/L (22-27) H 06/29/20 06:00 ABG O2 Sat (Measured) 97.6 mmHg (95-98) 06/29/20 06:00 ABG O2 Content No Result Required. 06/29/20 06:00 ABG Base Excess 6.6 mmol/L (-2-2) H 06/29/20 06:00 John Test No Result Required. 06/29/20 06:00 VBG pH 7.462 (7.310-7.410) H 06/26/20 12:55 POC VBG pCO2 43.7 mmHg (38-52) 06/26/20 12:55 POC VBG pO2 82.8 mmHg (28-48) H 06/26/20 12:55 VBG HCO3 30.5 mmol/L (23-29) H 06/26/20 12:55 VBG O2 Sat (Reece) 96.6 % (70-80) H 06/26/20 12:55 VBG Base Excess 6.1 mmol/L (-2-2) H 06/26/20 12:55 Patient On Oxygen Yes 06/29/20 06:00 O2 Delivery Device Trach vent 06/29/20 06:00 Oxygen Flow Rate 50% 06/29/20 06:00 Vent Mode A/c 06/29/20 06:00 Vent Rate 12 06/29/20 06:00 Mechanical Rate Yes 06/29/20 06:00 PEEP 5.0 cmH2O 06/29/20 06:00 Pressure Support Vent 400 06/29/20 06:00 Sodium 140 mmol/L (136-145) 06/29/20 06:00 Potassium 3.2 mmol/L (3.5-5.1) L 06/29/20 06:00 Chloride 101 mmol/L (98-107) 06/29/20 06:00 Carbon Dioxide 32 mmol/L (21-32) 06/29/20 06:00 Anion Gap 8 MMOL/L (8-16) 06/29/20 06:00 BUN 11.6 mg/dL (7-18) 06/29/20 06:00 Creatinine 0.5 mg/dL (0.55-1.3) L 06/29/20 06:00 Est GFR (CKD-EPI)AfAm 118.62 06/29/20 06:00 Est GFR (CKD-EPI)NonAf 102.35 06/29/20 06:00 POC Glucometer 92 UNITS (80-120) 06/29/20 05:56 Random Glucose 91 mg/dL (74-106) 06/29/20 06:00 Lactic Acid 1.0 mmol/L (0.4-2.0) 06/26/20 12:55 Calcium 8.9 mg/dL (8.5-10.1) 06/29/20 06:00 Phosphorus 3.5 mg/dL (2.5-4.9) 06/29/20 06:00 Magnesium 1.8 mg/dL (1.8-2.4) 06/29/20 06:00 Iron 18 ug/dL (50-175) L 06/28/20 13:43 TIBC 185 ug/dL (250-450) L 06/28/20 13:43 Iron Saturation 9 % (17.5-39) L 06/28/20 13:43 Unsaturated IBC 167 ug/dL (200-275) L 06/28/20 13:43 Ferritin 389.4 ng/ml (8-388) H 06/28/20 13:43 Total Bilirubin 1.1 mg/dL (0.2-1) H 06/29/20 06:00 AST 21 U/L (15-37) 06/29/20 06:00 ALT 48 U/L (13-61) 06/29/20 06:00 Alkaline Phosphatase 51 U/L (45-117) 06/29/20 06:00 Troponin I < 0.02 ng/ml (0.00-0.05) 06/26/20 12:55 B-Natriuretic Peptide 216.0 pg/ml (5-450) 06/26/20 12:55 Total Protein 6.2 g/dl (6.4-8.2) L 06/29/20 06:00 Albumin 1.9 g/dl (3.4-5.0) L 06/29/20 06:00 Lipase 141 U/L (73-393) 06/26/20 12:55 Urine Color Yellow 06/26/20 14:35 Urine Appearance Turbid 06/26/20 14:35 Urine pH 7.5 (5.0-8.0) 06/26/20 14:35 Ur Specific [place] [employer] 1.019 (1.010-1.035) 06/26/20 14:35 Urine Protein 2+ (NEGATIVE) H 06/26/20 14:35 Urine Glucose (UA) Negative (NEGATIVE) 06/26/20 14:35 Urine Ketones Negative (NEGATIVE) 06/26/20 14:35 Urine Blood 3+ (NEGATIVE) H 06/26/20 14:35 Urine Nitrite Negative (NEGATIVE) 06/26/20 14:35 Urine Bilirubin Negative (NEGATIVE) 06/26/20 14:35 Urine Urobilinogen 1.0 mg/dL (0.2-1.0) 06/26/20 14:35 Ur Leukocyte Esterase 2+ (NEGATIVE) H 06/26/20 14:35 Urine WBC (Auto) 399 /uL (0-25.8) 06/26/20 14:35 Urine RBC (Auto) 553 /uL (0-23.9) 06/26/20 14:35 Urine Casts (Auto) 46 /uL (0-3.1) 06/26/20 14:35 U Pathogenic Cast Auto None /lpf (NEGATIVE) 06/26/20 14:35 U Epithel Cells (Auto) 19 /uL (0-25.1) 06/26/20 14:35 Urine Bacteria (Auto) 380 /uL (0-1359) 06/26/20 14:35 COVID-19 (NEENA) Not detected (Not Detected) 06/26/20 14:09 Blood Type A POSITIVE 06/26/20 12:55 Antibody Screen Negative 06/26/20 12:55 Active Medications Generic Name Dose Route Start Last Admin Trade Name Freq PRN Reason Stop Dose Admin Acetaminophen 650 mg 06/26/20 16:11 Tylenol Oral Solution - GT Q4H PRN PAIN Chlorhexidine Gluconate 1 applic 06/26/20 22:00 06/28/20 21:00 Hibiclens For Decolonization - TP 1 applic HS NORRIS Administration Docusate Sodium 100 mg 06/26/20 22:00 06/29/20 06:01 Colace Liquid - GT 100 mg TID NORRIS Administration Enoxaparin Sodium 40 mg 06/28/20 10:00 06/29/20 09:17 Lovenox - SQ 40 mg DAILY NORRIS Administration Famotidine 20 mg 06/27/20 10:00 06/29/20 09:44 Pepcid PEG 20 mg DAILY NORRIS Administration Ferrous Sulfate 300 mg 06/27/20 10:00 06/29/20 09:44 Feosol GT 300 mg DAILY NORRIS Administration Furosemide 40 mg 06/27/20 06:00 06/29/20 06:01 Lasix Injection - IVPUSH 40 mg BID@0600,1400 NORRIS Administration Piperacillin Sod/Tazobactam 50 mls @ 100 mls/hr 06/28/20 18:00 06/29/20 09:15 Sod 3.375 gm/ Dextrose IVPB 100 mls/hr Q8H-IV NORRIS Administration Protocol Vancomycin HCl 1,000 mg in 250 mls @ 166.667 mls/hr 06/28/20 20:00 06/29/20 09:00 Vancomycin (Pre-Docked) IVPB 166.667 mls/hr Q12H [facility]RIS Administration Protocol Insulin Aspart 1 vial 06/26/20 18:31 06/29/20 05:59 Novolog Vial Sliding Scale - SQ Not Given Q6H [facility]RIS Protocol Labetalol HCl 10 mg 06/28/20 13:47 Normodyne Injection - IVPUSH Q8H PRN HYPERTENSION Lacosamide 100 mg 06/27/20 10:00 06/29/20 09:31 Vimpat Injection - IVPB 100 mg BID NORRIS Administration Levetiracetam 1,250 mg 06/26/20 22:00 06/29/20 09:05 Keppra Injection - IVPB 1,250 mg BID NORRIS Administration Lorazepam 2 mg 06/28/20 06:56 06/28/20 10:30 Ativan Injection - IVPUSH 2 mg Q4H PRN Administration AGITATION Losartan Potassium 100 mg 06/27/20 10:00 06/29/20 09:03 Cozaar - GT 100 mg DAILY NORRIS Administration Metoprolol Tartrate 12.5 mg 06/26/20 22:00 06/29/20 09:22 Lopressor - GT 12.5 mg BID NORRIS Administration Mupirocin 1 applic 06/26/20 22:00 06/29/20 09:39 Bactroban Ointment (For Decolonization) - NS 07/01/20 21:59 1 applic BID NORRIS Administration Polyethylene Glycol 17 gm 06/27/20 10:00 06/29/20 09:22 Miralax (For Daily Use) - GT 17 gm DAILY NORRIS Administration Valproate Sodium 750 mg 06/28/20 10:00 06/29/20 09:03 Depacon Injection - IVPB 750 mg BID NORRIS Administration ASSESSMENT/PLAN: 79 yo M PMH of cardiac arrest, ICH, dysphagia, hypertension, asthma, GERD, T1DM, neuropathy, COPD( s/p tracheostomy), seizure d/o ,chronic neely (changed every third Sat), and nonverbal at baseline who presents to the ED via EMS from [facility] with a seizure.pt currently off propofol . had seizure this am Neuro: seizures 2/2 Acute toxic metabolic encephalopathy, seizure d/o - s/p propofol drip. currently off propofol, ativan for breakthrough seizure- responds well - c/w keppra 1250 bid. c/w vimpat . c/w depacon -neuro recs ( Dr. Luna ) appreciated. neurosurg recs appreciated, no neurosurgical intervention recommended at this time - pending EEG read. - head CT negative for acute pathology, rpt head CT reviewed : No significant interval change. Chronic right subdural collection/hygroma and likely a smaller one on the left. Generalized volume loss with extensive periventricular chronic microvascular ischemic disease zaldivar ges. No gross CT evidence of an acute process is identified. Chronic sinusitis mainly involving the left maxillary antrum -pt is at baseline mental status. - aspiration precautions Cardio - cardio, Dr. Canales , consulted - c/w lasix 40 IVP bid -cont to monitor BP Pulm - trached to vent -A/C TV 400, RR 12, FiO2 50, PEEP 5 -CXR reviewed, likely atelectasis. cont to monitor ID -+ UA. blood culture prelim positive for staph coag neg, rpt cultures negative ; on vanc/zosyn day 3 ID consulted Endo T1DM - BGM , ISS Urology - chronic neely GI GERD - c/w pepcid - will restart feeds today DVT ppx: lovenox daily GIppx: pepcid 20 mg daily Stable for downgrade to vent unit. pt is at baseline mental status. ATTENDING PHYSICIAN STATEMENT I saw and evaluated the patient. I reviewed the resident's note and discussed the case with the resident. I agree with the resident's findings and plan as documented. SUBJECTIVE: OBJECTIVE: ASSESSMENT AND PLAN:
--- NOTE | 2020-06-29 11:36 | PN ---
Progress Note, Physician Chief Complaint: The patient remains unresponsive and intubated. Tele shows sinus rhythm in 80s with frequent APCs and VPCs. History of Present Illness: 79 year-old man, NHR, with a PMHx of HTN, DM, cardiac arrest, ICH, asthma, COPD, GERD, neuropathy, tracheostomy, seizures, metabolic encephalopathy, nonverbal at baseline admitted 06/26/20 with recurrent seizure. The patient had recurrent seizure on the day of admission. He was treated with diazepam, ativan and Keppra with no improvement. Givenon propofol infusion with improvement ECG 06/26/20 showed sinus rhythm at 88 BPM. LAD/LAFB and RBBB. CXR 06/26/20 revealed weak inspiration with congestive and infiltrative, atelectatic changes in the bases. CT head 06/26/20: Moderate chronic right sided SDH and extensive sinusitis and mastoiditis. Troponin and BNP are within normal range. Seen by neurosurgery and neurosurgical intervention not recommended. Seen by ID for bacteremia. The patient remains intubated through trach and responds to only painful stimuli. - Current Medication List Current Medications: Active Medications Acetaminophen (Tylenol Oral Solution -) 650 mg GT Q4H PRN PRN Reason: PAIN Chlorhexidine Gluconate (Hibiclens For Decolonization -) 1 applic TP HS [facility] Last Admin: 06/28/20 21:00 Dose: 1 applic Documented by: Docusate Sodium (Colace Liquid -) 100 mg GT TID [facility] Last Admin: 06/29/20 06:01 Dose: 100 mg Documented by: Enoxaparin Sodium (Lovenox -) 40 mg SQ DAILY [facility] Last Admin: 06/29/20 09:17 Dose: 40 mg Documented by: Famotidine (Pepcid) 20 mg PEG DAILY [facility] Last Admin: 06/29/20 09:44 Dose: 20 mg Documented by: Ferrous Sulfate (Feosol) 300 mg GT DAILY [facility] Last Admin: 06/29/20 09:44 Dose: 300 mg Documented by: Furosemide (Lasix Injection -) 40 mg IVPUSH BID@0600,1400 [facility] Last Admin: 06/29/20 06:01 Dose: 40 mg Documented by: Piperacillin Sod/Tazobactam (Sod 3.375 gm/ Dextrose) 50 mls @ 100 mls/hr IVPB Q8H-IV NORRIS; Protocol Last Admin: 06/29/20 09:15 Dose: 100 mls/hr Documented by: Vancomycin HCl (Vancomycin (Pre-Docked)) 1,000 mg in 250 mls @ 166.667 mls/hr IVPB Q12H [facility]; Protocol Last Admin: 06/29/20 09:00 Dose: 166.667 mls/hr Documented by: Insulin Aspart (Novolog Vial Sliding Scale -) 1 vial SQ Q6H NORRIS; Protocol Last Admin: 06/29/20 05:59 Dose: Not Given Documented by: Labetalol HCl (Normodyne Injection -) 10 mg IVPUSH Q8H PRN PRN Reason: HYPERTENSION Lacosamide (Vimpat Injection -) 100 mg IVPB BID [facility] Last Admin: 06/29/20 09:31 Dose: 100 mg Documented by: Levetiracetam (Keppra Injection -) 1,250 mg IVPB BID [facility] Last Admin: 06/29/20 09:05 Dose: 1,250 mg Documented by: Lorazepam (Ativan Injection -) 2 mg IVPUSH Q4H PRN PRN Reason: AGITATION Last Admin: 06/28/20 10:30 Dose: 2 mg Documented by: Losartan Potassium (Cozaar -) 100 mg GT DAILY [facility] Last Admin: 06/29/20 09:03 Dose: 100 mg Documented by: Metoprolol Tartrate (Lopressor -) 12.5 mg GT BID [facility] Last Admin: 06/29/20 09:22 Dose: 12.5 mg Documented by: Mupirocin (Bactroban Ointment (For Decolonization) -) 1 applic NS BID [facility] Stop: 07/01/20 21:59 Last Admin: 06/29/20 09:39 Dose: 1 applic Documented by: Polyethylene Glycol (Miralax (For Daily Use) -) 17 gm GT DAILY [facility] Last Admin: 06/29/20 09:22 Dose: 17 gm Documented by: Valproate Sodium (Depacon Injection -) 750 mg IVPB BID [facility] Last Admin: 06/29/20 09:03 Dose: 750 mg Documented by: - Objective Vital Signs: Vital Signs Temperature 99.2 F 06/29/20 10:00 Pulse Rate 86 06/29/20 11:00 Respiratory Rate 14 06/29/20 11:00 Blood Pressure 125/60 06/29/20 11:00 O2 Sat by Pulse Oximetry (%) 100 06/29/20 11:00 General: Well developed. Chronic ill. No acute distress. Head: Normocephalic. Atraumatic, Neck: Supple. Trach in place. Heart: Normal S1, S2: Regular rhythm and rate. No murmur. No gallop or rub. Lungs: Symmetrical air entry with vent BS. Abdomen: Soft. Bowel sound positive. Non tender. No masses. Extremities: No edema. Labs: CBC, BMP 06/29/20 05:45 06/29/20 06:00 INR, PTT INR 1.15 (0.83-1.09) H 06/26/20 12:55 Assessment/Plan 79 year-old man, NHR, with a PMHx of HTN, DM, cardiac arrest, ICH, asthma, COPD, GERD, neuropathy, tracheostomy, seizures, metabolic encephalopathy, nonverbal at baseline admitted 06/26/20 with recurrent seizure. The patient had recurrent seizure on the day of admission. He was treated with diazepam, ativan and Keppra with no improvement. Givenon propofol infusion with improvement ECG 06/26/20 showed sinus rhythm at 88 BPM. LAD/LAFB and RBBB. CXR 06/26/20 revealed weak inspiration with congestive and infiltrative, atelectatic changes in the bases. CT head 06/26/20: Moderate chronic right sided SDH and extensive sinusitis and mastoiditis. Troponin and BNP are within normal range. Seen by neurosurgery and neurosurgical intervention not recommended. Seen by ID for bacteremia. The patient remains intubated through trach and responds to only painful stimuli. 1) Questionable CHF with CXR evidence of congestive and infiltrative, atelectatic changes in the bases. IV Lasix to as per ICU team. BNP is within normal range.
--- NOTE | 2020-06-29 12:18 | PN ---
Teaching Attending Note Name of Resident: Leigh Espinosa ATTENDING PHYSICIAN STATEMENT I saw and evaluated the patient. I reviewed the resident's note and discussed the case with the resident. I agree with the resident's findings and plan as documented. SUBJECTIVE: Pt seen and examined in the ICU. Vented, poorly responsive. No fevers recorded. OBJECTIVE: Vital Signs Period Temp Pulse Resp BP Sys/Canela Pulse Ox Last 24 Hr 98.8 F-99.2 F 78-97 12-21 108-150/60-86 97-100 Intake & Output 06/26/20 06/27/20 06/28/20 06/29/20 23:59 23:59 23:59 23:59 Intake Total 320 2077 650 Output Total 4000 2150 600 Balance -3680 -73 50 Weight 83 kg 83.1 kg 82.554 kg 82.554 kg Gen: vented, poorly responsive Heart: RRR Lung: decreased breath sounds at the bases Abd: soft, nontender Ext: no edema CBC, BMP 06/29/20 05:45 06/29/20 06:00 Active Medications Acetaminophen (Tylenol Oral Solution -) 650 mg GT Q4H PRN PRN Reason: PAIN Chlorhexidine Gluconate (Hibiclens For Decolonization -) 1 applic TP HS [facility] Last Admin: 06/28/20 21:00 Dose: 1 applic Documented by: Docusate Sodium (Colace Liquid -) 100 mg GT TID [facility] Last Admin: 06/29/20 06:01 Dose: 100 mg Documented by: Enoxaparin Sodium (Lovenox -) 40 mg SQ DAILY [facility] Last Admin: 06/29/20 09:17 Dose: 40 mg Documented by: Famotidine (Pepcid) 20 mg PEG DAILY [facility] Last Admin: 06/29/20 09:44 Dose: 20 mg Documented by: Ferrous Sulfate (Feosol) 300 mg GT DAILY [facility] Last Admin: 06/29/20 09:44 Dose: 300 mg Documented by: Furosemide (Lasix Injection -) 40 mg IVPUSH BID@0600,1400 [facility] Last Admin: 06/29/20 06:01 Dose: 40 mg Documented by: Piperacillin Sod/Tazobactam (Sod 3.375 gm/ Dextrose) 50 mls @ 100 mls/hr IVPB Q8H-IV NORRIS; Protocol Last Admin: 06/29/20 09:15 Dose: 100 mls/hr Documented by: Vancomycin HCl (Vancomycin (Pre-Docked)) 1,000 mg in 250 mls @ 166.667 mls/hr IVPB Q12H [facility]; Protocol Last Admin: 06/29/20 09:00 Dose: 166.667 mls/hr Documented by: Insulin Aspart (Novolog Vial Sliding Scale -) 1 vial SQ Q6H [facility]IS; Protocol Last Admin: 06/29/20 05:59 Dose: Not Given Documented by: Labetalol HCl (Normodyne Injection -) 10 mg IVPUSH Q8H PRN PRN Reason: HYPERTENSION Lacosamide (Vimpat Injection -) 100 mg IVPB BID [facility] Last Admin: 06/29/20 09:31 Dose: 100 mg Documented by: Levetiracetam (Keppra Injection -) 1,250 mg IVPB BID [facility] Last Admin: 06/29/20 09:05 Dose: 1,250 mg Documented by: Lorazepam (Ativan Injection -) 2 mg IVPUSH Q4H PRN PRN Reason: AGITATION Last Admin: 06/28/20 10:30 Dose: 2 mg Documented by: Losartan Potassium (Cozaar -) 100 mg GT DAILY [facility] Last Admin: 06/29/20 09:03 Dose: 100 mg Documented by: Metoprolol Tartrate (Lopressor -) 12.5 mg GT BID [facility] Last Admin: 06/29/20 09:22 Dose: 12.5 mg Documented by: Mupirocin (Bactroban Ointment (For Decolonization) -) 1 applic NS BID [facility] Stop: 07/01/20 21:59 Last Admin: 06/29/20 09:39 Dose: 1 applic Documented by: Polyethylene Glycol (Miralax (For Daily Use) -) 17 gm GT DAILY [facility] Last Admin: 06/29/20 09:22 Dose: 17 gm Documented by: Valproate Sodium (Depacon Injection -) 750 mg IVPB BID [facility] Last Admin: 06/29/20 09:03 Dose: 750 mg Documented by: ASSESSMENT AND PLAN: Status Epilepticus resolved Seizure Disorder Anoxic Encephalopathy Pneumonia Gram Positive Bacteremia COPD HTN DM Asthma Anemia - antiepileptics per neuro - continue antibiotics - f/u cultures - echocardiogram - O2 to keep SpO2 >90% - poor candidate for weaning given poor mental status - enteral feeds - DVT/GI prophylaxis - can monitor on floor
--- NOTE | 2020-06-29 13:51 | PN ---
Progress Note, Physician History of Present Illness: NOT RESPONSIVE ON VENTILATOR +BC SCN X 2 BOTTLES ? CONTAMINANT AFEBRILE WBC IMPROVED - Current Medication List Current Medications: Active Medications Acetaminophen (Tylenol Oral Solution -) 650 mg GT Q4H PRN PRN Reason: PAIN Chlorhexidine Gluconate (Hibiclens For Decolonization -) 1 applic TP HS [facility] Last Admin: 06/28/20 21:00 Dose: 1 applic Documented by: Docusate Sodium (Colace Liquid -) 100 mg GT TID [facility] Last Admin: 06/29/20 13:04 Dose: 100 mg Documented by: Enoxaparin Sodium (Lovenox -) 40 mg SQ DAILY [facility] Last Admin: 06/29/20 09:17 Dose: 40 mg Documented by: Famotidine (Pepcid) 20 mg PEG DAILY [facility] Last Admin: 06/29/20 09:44 Dose: 20 mg Documented by: Ferrous Sulfate (Feosol) 300 mg GT DAILY [facility] Last Admin: 06/29/20 09:44 Dose: 300 mg Documented by: Furosemide (Lasix Injection -) 40 mg IVPUSH BID@0600,1400 [facility] Last Admin: 06/29/20 13:05 Dose: 40 mg Documented by: Piperacillin Sod/Tazobactam (Sod 3.375 gm/ Dextrose) 50 mls @ 100 mls/hr IVPB Q8H-IV [facility]; Protocol Last Admin: 06/29/20 09:15 Dose: 100 mls/hr Documented by: Vancomycin HCl (Vancomycin (Pre-Docked)) 1,000 mg in 250 mls @ 166.667 mls/hr IVPB Q12H [facility]; Protocol Last Admin: 06/29/20 09:00 Dose: 166.667 mls/hr Documented by: Insulin Aspart (Novolog Vial Sliding Scale -) 1 vial SQ Q6H [facility]; Protocol Last Admin: 06/29/20 13:02 Dose: Not Given Documented by: Labetalol HCl (Normodyne Injection -) 10 mg IVPUSH Q8H PRN PRN Reason: HYPERTENSION Lacosamide (Vimpat Injection -) 100 mg IVPB BID [facility] Last Admin: 06/29/20 09:31 Dose: 100 mg Documented by: Levetiracetam (Keppra Injection -) 1,250 mg IVPB BID [facility] Last Admin: 06/29/20 09:05 Dose: 1,250 mg Documented by: Lorazepam (Ativan Injection -) 2 mg IVPUSH Q4H PRN PRN Reason: AGITATION Last Admin: 06/28/20 10:30 Dose: 2 mg Documented by: Losartan Potassium (Cozaar -) 100 mg GT DAILY [facility] Last Admin: 06/29/20 09:03 Dose: 100 mg Documented by: Metoprolol Tartrate (Lopressor -) 12.5 mg GT BID [facility] Last Admin: 06/29/20 09:22 Dose: 12.5 mg Documented by: Mupirocin (Bactroban Ointment (For Decolonization) -) 1 applic NS BID [facility] Stop: 07/01/20 21:59 Last Admin: 06/29/20 09:39 Dose: 1 applic Documented by: Polyethylene Glycol (Miralax (For Daily Use) -) 17 gm GT DAILY [facility] Last Admin: 06/29/20 09:22 Dose: 17 gm Documented by: Valproate Sodium (Depacon Injection -) 750 mg IVPB BID [facility] Last Admin: 06/29/20 09:03 Dose: 750 mg Documented by: - Objective Vital Signs: Vital Signs Temperature 99 F 06/29/20 13:28 Pulse Rate 86 06/29/20 13:28 Respiratory Rate 144 H 06/29/20 13:28 Blood Pressure 144/80 06/29/20 13:28 O2 Sat by Pulse Oximetry (%) 100 06/29/20 12:16 Constitutional: Yes: No Distress Eyes: Yes: Conjunctiva Clear Cardiovascular: Yes: Regular Rate and Rhythm, S1, S2 Respiratory: Yes: Mechanically Ventilated Gastrointestinal: Yes: Normal Bowel Sounds, Soft. No: Tenderness Edema: Yes Labs: CBC, BMP 06/29/20 05:45 06/29/20 06:00 INR, PTT INR 1.15 (0.83-1.09) H 06/26/20 12:55 Assessment/Plan + BC SCN X 2 BOTTLES ? CONTAMINANT S/P LOW GRADE TEMP, HYPOTENSIVE EPISODE R/O SEPSIS S/P SEIZURES R/O ASPIRATION CHRONIC RESP FAILURE S/P CARDIOPULMONARY ARREST S/P SDH CHRONIC INDWELLING GILLIS AWAIT C/S CONTINUE VANCO/ ZOSYN VENTILATORY SUPPORT CRITICAL CARE TIME 35MIN
[2020-06-29] MEDS ORDERED: ACETAMINOPHEN 650 MG/20.3 ML ORAL SOLUTION (CUPS) GT PRN (18:18)
[2020-06-29] MEDS ORDERED: CHLORHEXIDINE GLUCONATE 4% CLEANSER FOR DECOLONIZATION TP SCH (22:00)
[2020-06-29] MEDS ORDERED: MUPIROCIN 2% TOPICAL OINTMENT FOR DECOLONIZATION NS SCH (22:00)
[2020-06-30] MEDS ORDERED: DEXTROSE 5%-WATER - 50 ML IVPB ONE ×3 (01:00→17:36)
[2020-06-30] MEDS ORDERED: PIPERACILLIN/TAZOBACTAM 3.375 GM VIAL IVPB ONE ×3 (01:00→17:36)
[2020-06-30] MEDS: PIPERACILLIN/TAZOB 3.375 GM 3.375 GM in DEXTROSE 5%-WATER - 50 ML IVPB SCH ×3 (01:13→18:56)
[2020-06-30] MEDS: LORazepam 2 MG/ML SDV VIAL IVPUSH PRN ×3 (05:16→19:03)
[2020-06-30] MEDS: DOCUSATE NA 100 MG/10 ML UNIT-DOSE CUPS GT SCH ×3 (05:16→21:39)
[2020-06-30] MEDS: FUROSEMIDE 40 MG/4 ML INJECTABLE VIAL IVPUSH SCH ×2 (05:16→14:27)
[2020-06-30] MEDS: INSULIN SLIDING SCALE (NOVOLOG) 1 VIAL SQ SCH ×3 (06:23→17:37)
--- NOTE | 2020-06-30 10:19 | PN ---
Progress Note (short form) - Note Progress Note: NEUROSURGERY h/o cardiac arrest, ICH, hypertension, asthma, COPD, GERD, DM, neuropathy, s/p tracheostomy, seizures, metabolic/anoxic encephalopathy was nonverbal at baseline and presented to the ED from [facility] with a seizure. Patient was having one of his daily seizures but the sz activoty persisted the day of admission. In ED patient was treated with diazepam, ativan and Keppra then propofol infusion finally with sz improvement; on keppra and valproic acid PE: Tmax 99.2, VSS General- trach in place Not obeying commands, grimaces to pain CN- intact; Motor- minimal voluntary movement, some occ twitching R UE; Sensation- difficult to assess; DTR- toes upgoing B WBC 9.3; blood culture- MRSE x2 CT head- R > L chronic subdural fluid collection with minimal mass effect, periventricular small vessel dz, atrophy Chronic SDH R > L Seizure disorder (metabolic/anoxic encephalopathy) Gram + bacteremia (could have lowered sz threshold), on vanco and zosyn per ID Neurology f/u for anticonvulsant optimization Overall poor baseline neurological condition and functional status Neurosurgical intervention not recommended
[2020-06-30] MEDS ORDERED: PT OWN MED DRAWER 7, Y5N ONE ×4 (10:31→21:36)
[2020-06-30] MEDS: Lacosamide 200 MG/20 ML VIAL IVPB SCH ×2 (10:45→22:58)
[2020-06-30] MEDS: ENOXAPARIN NA (PORCINE) 40 MG/0.4 ML DISP.SYRIN SQ SCH (10:49)
[2020-06-30] MEDS: METOPROLOL TARTRATE 25 MG TABLET (FP) GT SCH ×2 (10:49→21:39)
[2020-06-30] MEDS: LOSARTAN POTASSIUM 50 MG TABLET (FP) GT SCH (10:51)
[2020-06-30] MEDS: levETIRAcetam 500 MG/5 ML INJECTION VIAL IVPB SCH ×2 (10:52→21:11)
[2020-06-30] MEDS: FERROUS SO4 300 MG/5 ML ORAL SOLN UNIT DOSE CUPS GT SCH (10:54)
--- NOTE | 2020-06-30 10:54 | PN ---
Progress Note, Physician Chief Complaint: Status epilepticus UTI Anemia History of Present Illness: NAD, on mech vent Generalized edema - Current Medication List Current Medications: Active Medications Acetaminophen (Tylenol Oral Solution -) 650 mg GT Q4H PRN PRN Reason: PAIN Docusate Sodium (Colace Liquid -) 100 mg GT TID [facility] Last Admin: 06/30/20 05:16 Dose: 100 mg Documented by: Enoxaparin Sodium (Lovenox -) 40 mg SQ DAILY [facility] Last Admin: 06/29/20 09:17 Dose: 40 mg Documented by: Famotidine (Pepcid) 20 mg PEG DAILY [facility] Ferrous Sulfate (Feosol) 300 mg GT DAILY [facility] Furosemide (Lasix Injection -) 40 mg IVPUSH BID@0600,1400 [facility] Last Admin: 06/30/20 05:16 Dose: 40 mg Documented by: Piperacillin Sod/Tazobactam (Sod 3.375 gm/ Dextrose) 50 mls @ 100 mls/hr IVPB Q8H-IV [facility]; Protocol Last Admin: 06/30/20 01:13 Dose: 100 mls/hr Documented by: Vancomycin HCl (Vancomycin (Pre-Docked)) 1,000 mg in 250 mls @ 166.667 mls/hr IVPB Q12H [facility]; Protocol Last Admin: 06/29/20 20:09 Dose: 166.667 mls/hr Documented by: Insulin Aspart (Novolog Vial Sliding Scale -) 1 vial SQ Q6H [facility]; Protocol Last Admin: 06/30/20 06:23 Dose: Not Given Documented by: Labetalol HCl (Normodyne Injection -) 10 mg IVPUSH Q8H PRN PRN Reason: HYPERTENSION Lacosamide (Vimpat Injection -) 100 mg IVPB BID [facility] Last Admin: 06/29/20 22:36 Dose: 100 mg Documented by: Levetiracetam (Keppra Injection -) 1,250 mg IVPB BID [facility] Last Admin: 06/29/20 22:35 Dose: 1,250 mg Documented by: Lorazepam (Ativan Injection -) 2 mg IVPUSH Q4H PRN PRN Reason: AGITATION Last Admin: 06/30/20 05:16 Dose: 2 mg Documented by: Losartan Potassium (Cozaar -) 100 mg GT DAILY [facility] Metoprolol Tartrate (Lopressor -) 12.5 mg GT BID [facility] Last Admin: 06/29/20 22:35 Dose: 12.5 mg Documented by: Polyethylene Glycol (Miralax (For Daily Use) -) 17 gm GT DAILY [facility] Valproate Sodium (Depacon Injection -) 750 mg IVPB BID [facility] Last Admin: 06/29/20 23:25 Dose: 750 mg Documented by: - Objective Vital Signs: Vital Signs Temperature 99.6 F 06/30/20 04:00 Pulse Rate 75 06/30/20 08:24 Respiratory Rate 13 06/30/20 08:21 Blood Pressure 103/62 06/30/20 04:00 O2 Sat by Pulse Oximetry (%) 95 06/30/20 08:24 Constitutional: Yes: Well Nourished, No Distress, Calm Cardiovascular: Yes: Regular Rate and Rhythm Respiratory: Yes: Regular, Mechanically Ventilated, Rhonchi (diffuse) Gastrointestinal: Yes: Normal Bowel Sounds, Soft Genitourinary: Yes: Neely Present Musculoskeletal: Yes: WNL Extremities: Yes: WNL Edema: No Peripheral Pulses WNL: Yes Neurological: Yes: Pre-Existing Deficit Labs: CBC, BMP 06/29/20 05:45 06/29/20 06:00 INR, PTT INR 1.15 (0.83-1.09) H 06/26/20 12:55 Problem List - Problems (1) Bacteremia Assessment/Plan: -First BC growing Staph-contaminant? -Repeat BC preliminary negative -D/C IV Vanco+ Zosyn and monitor -ID on board -Afebrile Problems reviewed: Yes Code(s): R78.81 - BACTEREMIA (2) Chronic indwelling Neely catheter Assessment/Plan: -maintain neely Problems reviewed: Yes Code(s): Z97.8 - PRESENCE OF OTHER SPECIFIED DEVICES (3) Edema Assessment/Plan: -Continue Furosemide 40 mg GT BID Problems reviewed: Yes Code(s): R60.9 - EDEMA, UNSPECIFIED Qualifiers: Edema type: unspecified Qualified Code(s): R60.9 - Edema, unspecified (4) Status epilepticus Assessment/Plan: -Seen by Neurology and Neurosurgery -Continue depakote and Vimpat -Ativan PRN Problems reviewed: Yes Code(s): G40.901 - EPILEPSY, UNSP, NOT INTRACTABLE, WITH STATUS EPILEPTICUS (5) UTI (urinary tract infection) Assessment/Plan: -UC:negative -IV abx Problems reviewed: Yes Code(s): N39.0 - URINARY TRACT INFECTION, SITE NOT SPECIFIED Assessment/Plan See problem list
[2020-06-30] MEDS: FAMOTIDINE 40 MG/5 ML ORAL SUSPENSION PEG SCH (10:58)
[2020-06-30] MEDS: POLYETHYLENE GLYCOL 3350 119 GM BTL GT SCH (10:59)
--- NOTE | 2020-06-30 11:10 | PN ---
Progress Note (short form) - Note Progress Note: PULMONARY Vented, unresponsive. No fevers recorded. Vital Signs Period Temp Pulse Resp BP Sys/Canela Pulse Ox Last 24 Hr 98.8 F-99.6 F 74-97 13-16 103-145/62-89 95-100 Gen: vented, awake Heart: RRR Lung: decreased breath sounds at the bases Abd: soft, nontender Ext: + edema CBC, BMP 06/29/20 05:45 06/29/20 06:00 Active Medications Acetaminophen (Tylenol Oral Solution -) 650 mg GT Q4H PRN PRN Reason: PAIN Docusate Sodium (Colace Liquid -) 100 mg GT TID [facility] Last Admin: 06/30/20 05:16 Dose: 100 mg Documented by: Enoxaparin Sodium (Lovenox -) 40 mg SQ DAILY [facility] Last Admin: 06/30/20 10:49 Dose: 40 mg Documented by: Famotidine (Pepcid) 20 mg PEG DAILY [facility] Last Admin: 06/30/20 10:58 Dose: 20 mg Documented by: Ferrous Sulfate (Feosol) 300 mg GT DAILY [facility] Last Admin: 06/30/20 10:54 Dose: 300 mg Documented by: Furosemide (Lasix Injection -) 40 mg IVPUSH BID@0600,1400 [facility] Last Admin: 06/30/20 05:16 Dose: 40 mg Documented by: Piperacillin Sod/Tazobactam (Sod 3.375 gm/ Dextrose) 50 mls @ 100 mls/hr IVPB Q8H-IV [facility]; Protocol Last Admin: 06/30/20 10:49 Dose: 100 mls/hr Documented by: Vancomycin HCl (Vancomycin (Pre-Docked)) 1,000 mg in 250 mls @ 166.667 mls/hr IVPB Q12H [facility]; Protocol Last Admin: 06/29/20 20:09 Dose: 166.667 mls/hr Documented by: Insulin Aspart (Novolog Vial Sliding Scale -) 1 vial SQ Q6H [facility]; Protocol Last Admin: 06/30/20 06:23 Dose: Not Given Documented by: Labetalol HCl (Normodyne Injection -) 10 mg IVPUSH Q8H PRN PRN Reason: HYPERTENSION Lacosamide (Vimpat Injection -) 100 mg IVPB BID [facility] Last Admin: 06/30/20 10:45 Dose: 100 mg Documented by: Levetiracetam (Keppra Injection -) 1,250 mg IVPB BID [facility] Last Admin: 06/30/20 10:52 Dose: 1,250 mg Documented by: Lorazepam (Ativan Injection -) 2 mg IVPUSH Q4H PRN PRN Reason: AGITATION Last Admin: 06/30/20 05:16 Dose: 2 mg Documented by: Losartan Potassium (Cozaar -) 100 mg GT DAILY [facility] Last Admin: 06/30/20 10:51 Dose: 100 mg Documented by: Metoprolol Tartrate (Lopressor -) 12.5 mg GT BID [facility] Last Admin: 06/30/20 10:49 Dose: 12.5 mg Documented by: Polyethylene Glycol (Miralax (For Daily Use) -) 17 gm GT DAILY [facility] Last Admin: 06/30/20 10:59 Dose: 17 grams Documented by: Valproate Sodium (Depacon Injection -) 750 mg IVPB BID [facility] Last Admin: 06/29/20 23:25 Dose: 750 mg Documented by: A/P Status Epilepticus resolved Seizure Disorder Anoxic Encephalopathy Pneumonia Gram Positive Bacteremia COPD HTN DM Asthma Anemia - antiepileptics per neuro - continue antibiotics - f/u cultures - O2 to keep SpO2 >90% - poor candidate for weaning given poor mental status - enteral feeds - DVT/GI prophylaxis
[2020-06-30] MEDS: VALPROATE SODIUM 500 MG/5 ML VIAL IVPB SCH ×2 (12:54→22:09)
--- NOTE | 2020-06-30 15:11 | PN ---
Progress Note, Physician History of Present Illness: NOT RESPONSIVE ON VENTILATOR +BC SCN X 2 BOTTLES PROBABLE CONTAMINANT AFEBRILE WBC IMPROVED SPUTUM C/S PSEUDOMONAS SP - Current Medication List Current Medications: Active Medications Acetaminophen (Tylenol Oral Solution -) 650 mg GT Q4H PRN PRN Reason: PAIN Docusate Sodium (Colace Liquid -) 100 mg GT TID [facility] [place] Last Admin: 06/30/20 14:27 Dose: 100 mg Documented by: Enoxaparin Sodium (Lovenox -) 40 mg SQ DAILY [facility] Last Admin: 06/30/20 10:49 Dose: 40 mg Documented by: Famotidine (Pepcid) 20 mg PEG DAILY [facility] Last Admin: 06/30/20 10:58 Dose: 20 mg Documented by: Ferrous Sulfate (Feosol) 300 mg GT DAILY [facility] [place] Last Admin: 06/30/20 10:54 Dose: 300 mg Documented by: Furosemide (Lasix Injection -) 40 mg IVPUSH BID@0600,1400 [facility] [place] Last Admin: 06/30/20 14:27 Dose: 40 mg Documented by: Piperacillin Sod/Tazobactam (Sod 3.375 gm/ Dextrose) 50 mls @ 100 mls/hr IVPB Q8H-IV [facility]; Protocol Last Admin: 06/30/20 10:49 Dose: 100 mls/hr Documented by: Vancomycin HCl (Vancomycin (Pre-Docked)) 1,000 mg in 250 mls @ 166.667 mls/hr IVPB Q12H [facility]; Protocol Last Admin: 06/29/20 20:09 Dose: 166.667 mls/hr Documented by: Insulin Aspart (Novolog Vial Sliding Scale -) 1 vial SQ Q6H [facility]; Protocol Last Admin: 06/30/20 11:31 Dose: Not Given Documented by: Labetalol HCl (Normodyne Injection -) 10 mg IVPUSH Q8H PRN PRN Reason: HYPERTENSION Lacosamide (Vimpat Injection -) 100 mg IVPB BID [facility] [place] Last Admin: 06/30/20 10:45 Dose: 100 mg Documented by: Levetiracetam (Keppra Injection -) 1,250 mg IVPB BID [facility] [place] Last Admin: 06/30/20 10:52 Dose: 1,250 mg Documented by: Lorazepam (Ativan Injection -) 2 mg IVPUSH Q4H PRN PRN Reason: AGITATION Last Admin: 06/30/20 14:57 Dose: 2 mg Documented by: Losartan Potassium (Cozaar -) 100 mg GT DAILY [facility] [place] Last Admin: 06/30/20 10:51 Dose: 100 mg Documented by: Metoprolol Tartrate (Lopressor -) 12.5 mg GT BID [facility] [place] Last Admin: 06/30/20 10:49 Dose: 12.5 mg Documented by: Polyethylene Glycol (Miralax (For Daily Use) -) 17 gm GT DAILY [facility] [place] Last Admin: 06/30/20 10:59 Dose: 17 grams Documented by: Valproate Sodium (Depacon Injection -) 750 mg IVPB BID [facility] [place] Last Admin: 06/30/20 12:54 Dose: 750 mg Documented by: - Objective Vital Signs: Vital Signs Temperature 97.9 F 06/30/20 10:45 Pulse Rate 79 06/30/20 11:48 Respiratory Rate 15 06/30/20 11:48 Blood Pressure 150/118 H 06/30/20 10:45 O2 Sat by Pulse Oximetry (%) 99 06/30/20 11:48 Constitutional: Yes: No Distress Cardiovascular: Yes: Regular Rate and Rhythm, S1, S2 Respiratory: Yes: CTA Bilaterally, Mechanically Ventilated Gastrointestinal: Yes: Normal Bowel Sounds, Soft. No: Tenderness Edema: Yes Labs: CBC, BMP 06/29/20 05:45 06/29/20 06:00 INR, PTT INR 1.15 (0.83-1.09) H 06/26/20 12:55 Assessment/Plan + BC SCN X 2 BOTTLES ? CONTAMINANT S/P LOW GRADE TEMP, HYPOTENSIVE EPISODE R/O SEPSIS S/P SEIZURES R/O ASPIRATION CHRONIC RESP FAILURE S/P CARDIOPULMONARY ARREST S/P SDH CHRONIC INDWELLING GILLIS CONTINUE VANCO/ ZOSYN VENTILATORY SUPPORT
[2020-06-30] MEDS: VANCOMYCIN 1 GRAM (PRE-DOCKED) 1,000 MG/250 ML BAG IVPB SCH ×2 (17:05→20:58)
--- NOTE | 2020-06-30 19:19 | PN ---
Progress Note, Physician History of Present Illness: events noted Chart reviewed Still on the vent Gaze deviation is better Noted some lip smacking movements questionable partial seizure No other spontaneous movements noted On a combination of the Receptor which is the Vimpat and the Depakote sodium receptor both IV - Current Medication List Current Medications: Active Medications Acetaminophen (Tylenol Oral Solution -) 650 mg GT Q4H PRN PRN Reason: PAIN Docusate Sodium (Colace Liquid -) 100 mg GT TID [facility] Last Admin: 06/30/20 14:27 Dose: 100 mg Documented by: Enoxaparin Sodium (Lovenox -) 40 mg SQ DAILY [facility] Last Admin: 06/30/20 10:49 Dose: 40 mg Documented by: Famotidine (Pepcid) 20 mg PEG DAILY [facility] Last Admin: 06/30/20 10:58 Dose: 20 mg Documented by: Ferrous Sulfate (Feosol) 300 mg GT DAILY [facility] Last Admin: 06/30/20 10:54 Dose: 300 mg Documented by: Furosemide (Lasix Injection -) 40 mg IVPUSH BID@0600,1400 [facility] Last Admin: 06/30/20 14:27 Dose: 40 mg Documented by: Piperacillin Sod/Tazobactam (Sod 3.375 gm/ Dextrose) 50 mls @ 100 mls/hr IVPB Q8H-IV [facility]; Protocol Last Admin: 06/30/20 18:56 Dose: 100 mls/hr Documented by: Vancomycin HCl (Vancomycin (Pre-Docked)) 1,000 mg in 250 mls @ 166.667 mls/hr IVPB Q12H [facility]; Protocol Last Admin: 06/30/20 17:05 Dose: Not Given Documented by: Insulin Aspart (Novolog Vial Sliding Scale -) 1 vial SQ Q6H [facility]; Protocol Last Admin: 06/30/20 17:37 Dose: Not Given Documented by: Labetalol HCl (Normodyne Injection -) 10 mg IVPUSH Q8H PRN PRN Reason: HYPERTENSION Lacosamide (Vimpat Injection -) 100 mg IVPB BID [facility] Last Admin: 06/30/20 10:45 Dose: 100 mg Documented by: Levetiracetam (Keppra Injection -) 1,250 mg IVPB BID [facility] Last Admin: 06/30/20 10:52 Dose: 1,250 mg Documented by: Lorazepam (Ativan Injection -) 2 mg IVPUSH Q4H PRN PRN Reason: AGITATION Last Admin: 06/30/20 19:03 Dose: 2 mg Documented by: Losartan Potassium (Cozaar -) 100 mg GT DAILY [facility] Last Admin: 06/30/20 10:51 Dose: 100 mg Documented by: Metoprolol Tartrate (Lopressor -) 12.5 mg GT BID [facility] Last Admin: 06/30/20 10:49 Dose: 12.5 mg Documented by: Polyethylene Glycol (Miralax (For Daily Use) -) 17 gm GT DAILY [facility] Last Admin: 06/30/20 10:59 Dose: 17 grams Documented by: Valproate Sodium (Depacon Injection -) 750 mg IVPB BID [facility] Last Admin: 06/30/20 12:54 Dose: 750 mg Documented by: - Objective Vital Signs: Vital Signs Temperature 98.7 F 06/30/20 18:00 Pulse Rate 85 06/30/20 18:00 Respiratory Rate 16 06/30/20 18:00 Blood Pressure 146/58 L 06/30/20 18:00 O2 Sat by Pulse Oximetry (%) 100 06/30/20 18:00 Constitutional: Yes: Well Nourished Eyes: Yes: WNL Neurological: Yes: Babinski positive, Pre-Existing Deficit (lip smacking movements no gaze deviation positive weak gag bilateral reactive pupil) Labs: CBC, BMP 06/29/20 05:45 06/29/20 06:00 INR, PTT INR 1.15 (0.83-1.09) H 06/26/20 12:55 Problem List - Problems (1) Subdural bleeding Assessment/Plan: 1. Seizure precautions. 2. Continue the Ativan when necessary. 3. Check Depakote level. 4. Check Vimpat level. Code(s): I62.00 - NONTRAUMATIC SUBDURAL HEMORRHAGE, UNSPECIFIED (2) Status epilepticus Code(s): G40.901 - EPILEPSY, UNSP, NOT INTRACTABLE, WITH STATUS EPILEPTICUS
[2020-07-01] MEDS ORDERED: DEXTROSE 5%-WATER - 50 ML IVPB ONE ×3 (01:11→17:54)
[2020-07-01] MEDS ORDERED: PIPERACILLIN/TAZOBACTAM 3.375 GM VIAL IVPB ONE ×3 (01:11→17:54)
[2020-07-01] MEDS: INSULIN SLIDING SCALE (NOVOLOG) 1 VIAL SQ SCH ×4 (01:16→17:48)
[2020-07-01] MEDS: PIPERACILLIN/TAZOB 3.375 GM 3.375 GM in DEXTROSE 5%-WATER - 50 ML IVPB SCH ×3 (01:19→17:48)
[2020-07-01] MEDS: FUROSEMIDE 40 MG/4 ML INJECTABLE VIAL IVPUSH SCH ×2 (05:44→14:47)
[2020-07-01] MEDS: DOCUSATE NA 100 MG/10 ML UNIT-DOSE CUPS GT SCH ×3 (05:47→23:43)
--- NOTE | 2020-07-01 07:47 | PN ---
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
[2020-07-01] MEDS ORDERED: PT OWN MED DRAWER 7, Y5N ONE (09:42)
[2020-07-01] MEDS: FERROUS SO4 300 MG/5 ML ORAL SOLN UNIT DOSE CUPS GT SCH (09:44)
[2020-07-01] MEDS: levETIRAcetam 500 MG/5 ML INJECTION VIAL IVPB SCH ×2 (09:44→23:17)
[2020-07-01] MEDS: ENOXAPARIN NA (PORCINE) 40 MG/0.4 ML DISP.SYRIN SQ SCH (09:44)
[2020-07-01] MEDS: Lacosamide 200 MG/20 ML VIAL IVPB SCH ×2 (09:45→23:44)
[2020-07-01] MEDS: METOPROLOL TARTRATE 25 MG TABLET (FP) GT SCH ×2 (09:45→23:43)
[2020-07-01] MEDS: FAMOTIDINE 40 MG/5 ML ORAL SUSPENSION PEG SCH (09:46)
[2020-07-01] MEDS: LOSARTAN POTASSIUM 50 MG TABLET (FP) GT SCH (09:46)
[2020-07-01] MEDS: VALPROATE SODIUM 500 MG/5 ML VIAL IVPB SCH ×2 (09:47→23:46)
[2020-07-01] MEDS: VANCOMYCIN 1 GRAM (PRE-DOCKED) 1,000 MG/250 ML BAG IVPB SCH ×3 (09:49→14:47)
[2020-07-01] MEDS: POLYETHYLENE GLYCOL 3350 119 GM BTL GT SCH (09:49)
--- NOTE | 2020-07-01 10:02 | PN ---
Progress Note, Physician Chief Complaint: Status epilepticus UTI Anemia History of Present Illness: NAD, on mech vent Generalized edema improved obtunded afebrile overnight - Current Medication List Current Medications: Active Medications Acetaminophen (Tylenol Oral Solution -) 650 mg GT Q4H PRN PRN Reason: PAIN Docusate Sodium (Colace Liquid -) 100 mg GT TID [facility] Last Admin: 07/01/20 05:47 Dose: 100 mg Documented by: Enoxaparin Sodium (Lovenox -) 40 mg SQ DAILY [facility] Last Admin: 07/01/20 09:44 Dose: 40 mg Documented by: Famotidine (Pepcid) 20 mg PEG DAILY [facility] Last Admin: 07/01/20 09:46 Dose: 20 mg Documented by: Ferrous Sulfate (Feosol) 300 mg GT DAILY [facility] Last Admin: 07/01/20 09:44 Dose: 300 mg Documented by: Furosemide (Lasix Injection -) 40 mg IVPUSH BID@0600,1400 [facility] Last Admin: 07/01/20 05:44 Dose: 40 mg Documented by: Piperacillin Sod/Tazobactam (Sod 3.375 gm/ Dextrose) 50 mls @ 100 mls/hr IVPB Q8H-IV [facility]; Protocol Last Admin: 07/01/20 09:49 Dose: 100 mls/hr Documented by: Vancomycin HCl (Vancomycin (Pre-Docked)) 1,000 mg in 250 mls @ 166.667 mls/hr IVPB Q12H [facility]; Protocol Last Admin: 07/01/20 09:49 Dose: 166.667 mls/hr Documented by: Insulin Aspart (Novolog Vial Sliding Scale -) 1 vial SQ Q6H [facility]; Protocol Last Admin: 07/01/20 05:47 Dose: Not Given Documented by: Labetalol HCl (Normodyne Injection -) 10 mg IVPUSH Q8H PRN PRN Reason: HYPERTENSION Lacosamide (Vimpat Injection -) 100 mg IVPB BID [facility] Last Admin: 07/01/20 09:45 Dose: 100 mg Documented by: Levetiracetam (Keppra Injection -) 1,250 mg IVPB BID [facility] Last Admin: 07/01/20 09:44 Dose: 1,250 mg Documented by: Lorazepam (Ativan Injection -) 2 mg IVPUSH Q4H PRN PRN Reason: AGITATION Last Admin: 06/30/20 19:03 Dose: 2 mg Documented by: Losartan Potassium (Cozaar -) 100 mg GT DAILY [facility] Last Admin: 07/01/20 09:46 Dose: 100 mg Documented by: Metoprolol Tartrate (Lopressor -) 12.5 mg GT BID [facility] Last Admin: 07/01/20 09:45 Dose: 12.5 mg Documented by: Polyethylene Glycol (Miralax (For Daily Use) -) 17 gm GT DAILY [facility] Last Admin: 07/01/20 09:49 Dose: 17 grams Documented by: Valproate Sodium (Depacon Injection -) 750 mg IVPB BID [facility] Last Admin: 07/01/20 09:47 Dose: 750 mg Documented by: - Objective Vital Signs: Vital Signs Temperature 98.8 F 07/01/20 06:24 Pulse Rate 88 07/01/20 06:24 Respiratory Rate 16 07/01/20 08:10 Blood Pressure 168/61 07/01/20 06:24 O2 Sat by Pulse Oximetry (%) 99 07/01/20 08:10 Constitutional: Yes: Well Nourished, No Distress, Calm Cardiovascular: Yes: Regular Rate and Rhythm Respiratory: Yes: Regular, Mechanically Ventilated, Rhonchi (diffuse) Gastrointestinal: Yes: Normal Bowel Sounds, Soft, Abdomen, Obese Genitourinary: Yes: Neely Present Musculoskeletal: Yes: WNL Extremities: Yes: Other (generalized atrophy) Edema: No Peripheral Pulses WNL: Yes Neurological: Yes: Pre-Existing Deficit Labs: CBC, BMP 06/29/20 05:45 06/29/20 06:00 INR, PTT INR 1.15 (0.83-1.09) H 06/26/20 12:55 Problem List - Problems (1) Bacteremia Assessment/Plan: -First BC growing Staph -Repeat BC preliminary negative -IV Vanco+ Zosyn -ID on board -Afebrile Problems reviewed: Yes Code(s): R78.81 - BACTEREMIA (2) Chronic indwelling Neely catheter Assessment/Plan: -maintain neely Problems reviewed: Yes Code(s): Z97.8 - PRESENCE OF OTHER SPECIFIED DEVICES (3) Edema Assessment/Plan: -Continue Furosemide 40 mg IVP BID Problems reviewed: Yes Code(s): R60.9 - EDEMA, UNSPECIFIED Qualifiers: Edema type: unspecified Qualified Code(s): R60.9 - Edema, unspecified (4) Status epilepticus Assessment/Plan: -Seen by Neurology and Neurosurgery -Continue depakote and Vimpat -Ativan PRN Problems reviewed: Yes Code(s): G40.901 - EPILEPSY, UNSP, NOT INTRACTABLE, WITH STATUS EPILEPTICUS (5) UTI (urinary tract infection) Assessment/Plan: -UC:negative -IV abx Problems reviewed: Yes Code(s): N39.0 - URINARY TRACT INFECTION, SITE NOT SPECIFIED (6) Diabetes Assessment/Plan: -Recheck A1c -BGM AC HS -TF: Glucerna -ISS Problems reviewed: Yes Code(s): E11.9 - TYPE 2 DIABETES MELLITUS WITHOUT COMPLICATIONS (7) Anemia Assessment/Plan: -Stool OB negative -Thyroid+ B12 normal -THADDEUS -Unable to give IV iron due to bacteremia -Start Ferrous sulfate daily -Monitor trend -Do no transfuse unless Hg<7.0 to avoid fluid overload Problems reviewed: Yes Code(s): D64.9 - ANEMIA, UNSPECIFIED Qualifiers: Anemia type: unspecified type Qualified Code(s): D64.9 - Anemia, unspecified (8) Hypokalemia Assessment/Plan: -Recheck CMP today Problems reviewed: Yes Code(s): E87.6 - HYPOKALEMIA Assessment/Plan See problem list
--- NOTE | 2020-07-01 10:46 | PN ---
Progress Note, Physician History of Present Illness: pulmonary unresponsive on vent support ac mode,-resp distress - Current Medication List Current Medications: Active Medications Acetaminophen (Tylenol Oral Solution -) 650 mg GT Q4H PRN PRN Reason: PAIN Docusate Sodium (Colace Liquid -) 100 mg GT TID [facility] Last Admin: 07/01/20 05:47 Dose: 100 mg Documented by: Enoxaparin Sodium (Lovenox -) 40 mg SQ DAILY [facility] Last Admin: 07/01/20 09:44 Dose: 40 mg Documented by: Famotidine (Pepcid) 20 mg PEG DAILY [facility] Last Admin: 07/01/20 09:46 Dose: 20 mg Documented by: Ferrous Sulfate (Feosol) 300 mg GT DAILY [facility] Last Admin: 07/01/20 09:44 Dose: 300 mg Documented by: Furosemide (Lasix Injection -) 40 mg IVPUSH BID@0600,1400 [facility] Last Admin: 07/01/20 05:44 Dose: 40 mg Documented by: Piperacillin Sod/Tazobactam (Sod 3.375 gm/ Dextrose) 50 mls @ 100 mls/hr IVPB Q8H-IV [facility]; Protocol Last Admin: 07/01/20 09:49 Dose: 100 mls/hr Documented by: Vancomycin HCl (Vancomycin (Pre-Docked)) 1,000 mg in 250 mls @ 166.667 mls/hr IVPB Q12H [facility]; Protocol Last Admin: 06/30/20 20:58 Dose: Not Given Documented by: Insulin Aspart (Novolog Vial Sliding Scale -) 1 vial SQ Q6H [facility]; Protocol Last Admin: 07/01/20 05:47 Dose: Not Given Documented by: Labetalol HCl (Normodyne Injection -) 10 mg IVPUSH Q8H PRN PRN Reason: HYPERTENSION Lacosamide (Vimpat Injection -) 100 mg IVPB BID [facility] Last Admin: 07/01/20 09:45 Dose: 100 mg Documented by: Levetiracetam (Keppra Injection -) 1,250 mg IVPB BID [facility] Last Admin: 07/01/20 09:44 Dose: 1,250 mg Documented by: Lorazepam (Ativan Injection -) 2 mg IVPUSH Q4H PRN PRN Reason: AGITATION Last Admin: 06/30/20 19:03 Dose: 2 mg Documented by: Losartan Potassium (Cozaar -) 100 mg GT DAILY [facility] Last Admin: 07/01/20 09:46 Dose: 100 mg Documented by: Metoprolol Tartrate (Lopressor -) 12.5 mg GT BID [facility] Last Admin: 07/01/20 09:45 Dose: 12.5 mg Documented by: Polyethylene Glycol (Miralax (For Daily Use) -) 17 gm GT DAILY [facility] Last Admin: 07/01/20 09:49 Dose: 17 grams Documented by: Valproate Sodium (Depacon Injection -) 750 mg IVPB BID [facility] Last Admin: 07/01/20 09:47 Dose: 750 mg Documented by: - Objective Vital Signs: Vital Signs Temperature 98.8 F 07/01/20 10:35 Pulse Rate 88 07/01/20 10:35 Respiratory Rate 12 07/01/20 10:35 Blood Pressure 167/72 07/01/20 10:35 O2 Sat by Pulse Oximetry (%) 100 07/01/20 10:35 Constitutional: Yes: Well Nourished, Other (unresponsive) Eyes: Yes: WNL HENT: Yes: WNL Neck: Yes: Supple (trach) Cardiovascular: Yes: Regular Rate and Rhythm, S1, S2 Respiratory: Yes: Diminished Gastrointestinal: Yes: Normal Bowel Sounds, Soft Extremities: Yes: WNL Edema: No Labs: CBC, BMP Assessment/Plan A/P Status Epilepticus resolved Seizure Disorder Anoxic Encephalopathy Pneumonia Gram Positive Bacteremia COPD HTN DM Asthma Anemia - antiepileptics per neuro - antibiotics - O2 to keep SpO2 >90% - poor candidate for weaning given poor mental status - enteral feeds - DVT/GI prophylaxis DR CRAWFORD
[2020-07-01 13:29] LABS: BASO % 0.4 % (0-2.0); EOS % 1.6 % (0-4.5); HEMATOCRIT 28.3 % (35.4-49); HEMOGLOBIN 8.9 GM/dL (11.7-16.9); LYMPH % 21.8 % (8-40); MCH 26.3 pg (25.7-33.7); MCHC 31.4 g/dl (32.0-35.9); MEAN CELL VOLUME 83.9 fl (80-96); MEAN PLT VOLUME 7.4 fl (7.5-11.1); MONO % 11.2 % (3.8-10.2); PLATELET COUNT 693 K/MM3 (134-434); RBC 3.38 M/mm3 (4.00-5.60); RDW 17.6 % (11.9-15.9); WHITE BLOOD COUNT 9.5 K/mm3 (4.0-10.0)
--- NOTE | 2020-07-01 13:53 | PROC ---
Procedure Note Procedure: MIDLINE CATHETER INSERTION INR 1.23 RUE prepped/draped in sterile fashion. Under U/S guidance, identified the bascilic vessel as best access. Needle introduced. Non-pulsatile, dark venous blood return. Guidewire advance. Tourniquet removed. Stab incision made over wire. Sheath/dilator introduced. Guidewire and dilator removed together/intact. Again, dark venous blood confirmed from hub. Catheter inserted, sheath stripped away with 2 pieces intact. Midline secured to arm with manufacturers device. Both lines aspirate and flush easily. Occlusive dressing applied. Patient tolerated procedure well. Ok to use line for blood draws...just need to draw off 5cc of blood and dispose as to clear cath of any medication prior to sampling.
[2020-07-01 14:01] LABS: ALBUMIN 2.1 g/dl (3.4-5.0); BILIRUBIN,TOTAL 0.4 mg/dL (0.2-1); BLOOD UREA NITROGEN 15.1 mg/dL (7-18); CALCIUM 9.2 mg/dL (8.5-10.1); CREATININE 0.8 mg/dL (0.55-1.3); TOT PROT 6.7 g/dl (6.4-8.2)
[2020-07-01 14:14] LABS: POTASSIUM 2.9 mmol/L (3.5-5.1)
--- NOTE | 2020-07-01 14:35 | PN ---
Progress Note, Physician Chief Complaint: The patient remains unresponsive and intubated. History of Present Illness: 79 year-old man, NHR, with a PMHx of HTN, DM, cardiac arrest, ICH, asthma, COPD, GERD, neuropathy, tracheostomy, seizures, metabolic encephalopathy, nonverbal at baseline admitted 06/26/20 with recurrent seizure. The patient had recurrent seizure on the day of admission. He was treated with diazepam, ativan and Keppra with no improvement. Givenon propofol infusion with improvement ECG 06/26/20 showed sinus rhythm at 88 BPM. LAD/LAFB and RBBB. CXR 06/26/20 revealed weak inspiration with congestive and infiltrative, atelectatic changes in the bases. CT head 06/26/20: Moderate chronic right sided SDH and extensive sinusitis and mastoiditis. Troponin and BNP are within normal range. Seen by neurosurgery and neurosurgical intervention not recommended. Seen by ID for bacteremia. The patient remains intubated through trach and responds to only painful stimuli. - Current Medication List Current Medications: Active Medications Acetaminophen (Tylenol Oral Solution -) 650 mg GT Q4H PRN PRN Reason: PAIN Amino Acids (Prosource No Carb Liquid Pkt) 30 ml PEG DAILY [facility] Docusate Sodium (Colace Liquid -) 100 mg GT TID [facility] Last Admin: 07/01/20 05:47 Dose: 100 mg Documented by: Enoxaparin Sodium (Lovenox -) 40 mg SQ DAILY [facility] Last Admin: 07/01/20 09:44 Dose: 40 mg Documented by: Famotidine (Pepcid) 20 mg PEG DAILY [facility] Last Admin: 07/01/20 09:46 Dose: 20 mg Documented by: Ferrous Sulfate (Feosol) 300 mg GT DAILY [facility] Last Admin: 07/01/20 09:44 Dose: 300 mg Documented by: Furosemide (Lasix Injection -) 40 mg IVPUSH BID@0600,1400 [facility] Last Admin: 07/01/20 05:44 Dose: 40 mg Documented by: Piperacillin Sod/Tazobactam (Sod 3.375 gm/ Dextrose) 50 mls @ 100 mls/hr IVPB Q8H-IV [facility]; Protocol Last Admin: 07/01/20 09:49 Dose: 100 mls/hr Documented by: Vancomycin HCl (Vancomycin (Pre-Docked)) 1,000 mg in 250 mls @ 166.667 mls/hr IVPB Q12H [facility]; Protocol Potassium Chloride (Potassium Chloride 10 Meq Premix Ivpb -) 10 meq in 100 mls @ 100 mls/hr IVPB Q60M [facility] Stop: 07/01/20 17:29 Insulin Aspart (Novolog Vial Sliding Scale -) 1 vial SQ Q6H [facility]; Protocol Last Admin: 07/01/20 13:20 Dose: Not Given Documented by: Labetalol HCl (Normodyne Injection -) 10 mg IVPUSH Q8H PRN PRN Reason: HYPERTENSION Lacosamide (Vimpat Injection -) 100 mg IVPB BID [facility] Last Admin: 07/01/20 09:45 Dose: 100 mg Documented by: Levetiracetam (Keppra Injection -) 1,250 mg IVPB BID [facility] Last Admin: 07/01/20 09:44 Dose: 1,250 mg Documented by: Lorazepam (Ativan Injection -) 2 mg IVPUSH Q4H PRN PRN Reason: AGITATION Last Admin: 06/30/20 19:03 Dose: 2 mg Documented by: Losartan Potassium (Cozaar -) 100 mg GT DAILY [facility] Last Admin: 07/01/20 09:46 Dose: 100 mg Documented by: Metoprolol Tartrate (Lopressor -) 12.5 mg GT BID [facility] Last Admin: 07/01/20 09:45 Dose: 12.5 mg Documented by: Polyethylene Glycol (Miralax (For Daily Use) -) 17 gm GT DAILY [facility] Last Admin: 07/01/20 09:49 Dose: 17 grams Documented by: Potassium Chloride (Potassium Chloride Oral Liquid) 40 meq GT BID [facility] Valproate Sodium (Depacon Injection -) 750 mg IVPB BID [facility] Last Admin: 07/01/20 09:47 Dose: 750 mg Documented by: - Objective Vital Signs: Vital Signs Temperature 98.8 F 07/01/20 10:35 Pulse Rate 88 07/01/20 10:35 Respiratory Rate 13 07/01/20 11:45 Blood Pressure 167/72 07/01/20 10:35 O2 Sat by Pulse Oximetry (%) 99 07/01/20 11:45 General: Well developed. Chronic ill. No acute distress. Head: Normocephalic. Atraumatic, Neck: Supple. Trach in place. Heart: Normal S1, S2: Regular rhythm and rate. No murmur. No gallop or rub. Lungs: Symmetrical air entry with vent BS. Abdomen: Soft. Bowel sound positive. Non tender. No masses. Extremities: Arm edema. No leg edema. Labs: CBC, BMP 07/01/20 07:40 07/01/20 07:40 INR, PTT INR 1.15 (0.83-1.09) H 06/26/20 12:55 Assessment/Plan 79 year-old man, NHR, with a PMHx of HTN, DM, cardiac arrest, ICH, asthma, COPD, GERD, neuropathy, tracheostomy, seizures, metabolic encephalopathy, nonverbal at baseline admitted 06/26/20 with recurrent seizure. The patient had recurrent seizure on the day of admission. He was treated with diazepam, ativan and Keppra with no improvement. Givenon propofol infusion with improvement ECG 06/26/20 showed sinus rhythm at 88 BPM. LAD/LAFB and RBBB. CXR 06/26/20 revealed weak inspiration with congestive and infiltrative, atelectatic changes in the bases. CT head 06/26/20: Moderate chronic right sided SDH and extensive sinusitis and mastoiditis. Troponin and BNP are within normal range. Seen by neurosurgery and neurosurgical intervention not recommended. Seen by ID for bacteremia. The patient remains intubated through trach and responds to only painful stimuli. 1) Questionable CHF with CXR evidence of congestive and infiltrative, atelectatic changes in the bases. BNP is within normal range. May change IV Lasix to PO via NGT 40 mg daily. 2) HTN: BP is moderately elevated today with borderline tachcycardia. May increase metoprolol tartrate to 50 mg BID via NGT. Continue losartan 100 mg daily. Please do not hesitate to call us for reconsult at any time if any further questions or additional issue arises regarding this patient.
--- NOTE | 2020-07-01 16:35 | PN ---
Progress Note, Physician History of Present Illness: NOT RESPONSIVE ON VENTILATOR +BC SCN X 2 BOTTLES PROBABLE CONTAMINANT LOW GRADE TEMP NOTED WBC IMPROVED SPUTUM C/S PSEUDOMONAS SP - Current Medication List Current Medications: Active Medications Acetaminophen (Tylenol Oral Solution -) 650 mg GT Q4H PRN PRN Reason: PAIN Amino Acids (Prosource No Carb Liquid Pkt) 30 ml PEG DAILY [facility] Docusate Sodium (Colace Liquid -) 100 mg GT TID [facility] Last Admin: 07/01/20 14:47 Dose: 100 mg Documented by: Enoxaparin Sodium (Lovenox -) 40 mg SQ DAILY [facility] Last Admin: 07/01/20 09:44 Dose: 40 mg Documented by: Famotidine (Pepcid) 20 mg PEG DAILY [facility] Last Admin: 07/01/20 09:46 Dose: 20 mg Documented by: Ferrous Sulfate (Feosol) 300 mg GT DAILY [facility] Last Admin: 07/01/20 09:44 Dose: 300 mg Documented by: Furosemide (Lasix Injection -) 40 mg IVPUSH BID@0600,1400 [facility] Last Admin: 07/01/20 14:47 Dose: 40 mg Documented by: Piperacillin Sod/Tazobactam (Sod 3.375 gm/ Dextrose) 50 mls @ 100 mls/hr IVPB Q8H-IV [facility]; Protocol Last Admin: 07/01/20 09:49 Dose: 100 mls/hr Documented by: Vancomycin HCl (Vancomycin (Pre-Docked)) 1,000 mg in 250 mls @ 166.667 mls/hr IVPB Q12H [facility]; Protocol Last Admin: 07/01/20 14:47 Dose: 166.667 mls/hr Documented by: Potassium Chloride (Potassium Chloride 10 Meq Premix Ivpb -) 10 meq in 100 mls @ 100 mls/hr IVPB Q60M [facility] Stop: 07/01/20 17:59 Insulin Aspart (Novolog Vial Sliding Scale -) 1 vial SQ Q6H [facility]; Protocol Last Admin: 07/01/20 13:20 Dose: Not Given Documented by: Labetalol HCl (Normodyne Injection -) 10 mg IVPUSH Q8H PRN PRN Reason: HYPERTENSION Lacosamide (Vimpat Injection -) 100 mg IVPB BID [facility] Last Admin: 07/01/20 09:45 Dose: 100 mg Documented by: Levetiracetam (Keppra Injection -) 1,250 mg IVPB BID [facility] Last Admin: 07/01/20 09:44 Dose: 1,250 mg Documented by: Lorazepam (Ativan Injection -) 2 mg IVPUSH Q4H PRN PRN Reason: AGITATION Last Admin: 06/30/20 19:03 Dose: 2 mg Documented by: Losartan Potassium (Cozaar -) 100 mg GT DAILY [facility] Last Admin: 07/01/20 09:46 Dose: 100 mg Documented by: Metoprolol Tartrate (Lopressor -) 12.5 mg GT BID [facility] Last Admin: 07/01/20 09:45 Dose: 12.5 mg Documented by: Polyethylene Glycol (Miralax (For Daily Use) -) 17 gm GT DAILY [facility] Last Admin: 07/01/20 09:49 Dose: 17 grams Documented by: Potassium Chloride (Potassium Chloride Oral Liquid) 40 meq GT BID [facility] Valproate Sodium (Depacon Injection -) 750 mg IVPB BID [facility] Last Admin: 07/01/20 09:47 Dose: 750 mg Documented by: - Objective Vital Signs: Vital Signs Temperature 98.8 F 07/01/20 15:05 Pulse Rate 79 07/01/20 15:05 Respiratory Rate 14 07/01/20 16:20 Blood Pressure 133/77 07/01/20 15:05 O2 Sat by Pulse Oximetry (%) 100 07/01/20 16:20 Constitutional: Yes: No Distress Eyes: Yes: Conjunctiva Clear Cardiovascular: Yes: Regular Rate and Rhythm, S1, S2 Respiratory: Yes: Mechanically Ventilated Gastrointestinal: Yes: Normal Bowel Sounds, Soft. No: Tenderness Edema: Yes Labs: CBC, BMP 07/01/20 07:40 07/01/20 07:40 INR, PTT INR 1.15 (0.83-1.09) H 06/26/20 12:55 Assessment/Plan + BC SCN X 2 BOTTLES ? CONTAMINANT S/P LOW GRADE TEMP, HYPOTENSIVE EPISODE R/O SEPSIS S/P SEIZURES R/O ASPIRATION CHRONIC RESP FAILURE S/P CARDIOPULMONARY ARREST S/P SDH CHRONIC INDWELLING GILLIS CONTINUE VANCO/ ZOSYN VENTILATORY SUPPORT
[2020-07-01] MEDS: KCL 10 MEQ IVPB 10 MEQ/100 ML INFUS.BAG IVPB SCH ×3 (16:37→18:41)
[2020-07-01] MEDS: POTASSIUM CHLORIDE ORAL LIQUID 20 MEQ/15 ML GT SCH ×2 (16:37→23:43)
[2020-07-02] MEDS: INSULIN SLIDING SCALE (NOVOLOG) 1 VIAL SQ SCH ×4 (00:17→20:08)
[2020-07-02] MEDS ORDERED: PIPERACILLIN/TAZOBACTAM 3.375 GM VIAL IVPB ONE ×3 (02:50→17:10)
[2020-07-02] MEDS ORDERED: DEXTROSE 5%-WATER - 50 ML IVPB ONE ×3 (02:50→17:10)
[2020-07-02] MEDS: PIPERACILLIN/TAZOB 3.375 GM 3.375 GM in DEXTROSE 5%-WATER - 50 ML IVPB SCH ×3 (02:58→17:45)
[2020-07-02] MEDS: VANCOMYCIN 1 GRAM (PRE-DOCKED) 1,000 MG/250 ML BAG IVPB SCH ×2 (03:24→15:07)
[2020-07-02] MEDS: DOCUSATE NA 100 MG/10 ML UNIT-DOSE CUPS GT SCH ×3 (05:43→22:19)
[2020-07-02] MEDS: FUROSEMIDE 40 MG/4 ML INJECTABLE VIAL IVPUSH SCH ×2 (05:43→15:07)
[2020-07-02 09:34] LABS: BASO % 0.3 % (0-2.0); EOS % 1.7 % (0-4.5); HEMATOCRIT 26.5 % (35.4-49); HEMOGLOBIN 8.6 GM/dL (11.7-16.9); LYMPH % 29.7 % (8-40); MCH 26.7 pg (25.7-33.7); MCHC 32.3 g/dl (32.0-35.9); MEAN CELL VOLUME 82.6 fl (80-96); MEAN PLT VOLUME 7.3 fl (7.5-11.1); MONO % 11.6 % (3.8-10.2); NEUT % 56.7 % (42.8-82.8); PLATELET COUNT 615 K/MM3 (134-434); RDW 17.2 % (11.9-15.9); WHITE BLOOD COUNT 7.2 K/mm3 (4.0-10.0)
[2020-07-02] MEDS ORDERED: PT OWN MED DRAWER 7, Y5N ONE ×2 (10:05→22:04)
[2020-07-02 10:08] LABS: POTASSIUM 3.5 mmol/L (3.5-5.1)
[2020-07-02 10:25] LABS: BLOOD UREA NITROGEN 20.4 mg/dL (7-18); CALCIUM 9.3 mg/dL (8.5-10.1); CREATININE 0.8 mg/dL (0.55-1.3); TOT PROT 6.6 g/dl (6.4-8.2)
[2020-07-02 10:28] LABS: BILIRUBIN,TOTAL 0.6 mg/dL (0.2-1)
[2020-07-02] MEDS: METOPROLOL TARTRATE 25 MG TABLET (FP) GT SCH ×2 (10:50→22:19)
[2020-07-02] MEDS: POTASSIUM CHLORIDE ORAL LIQUID 20 MEQ/15 ML GT SCH ×2 (10:50→22:19)
[2020-07-02] MEDS: POLYETHYLENE GLYCOL 3350 119 GM BTL GT SCH (10:51)
[2020-07-02] MEDS: FERROUS SO4 300 MG/5 ML ORAL SOLN UNIT DOSE CUPS GT SCH (10:51)
[2020-07-02] MEDS: FAMOTIDINE 40 MG/5 ML ORAL SUSPENSION PEG SCH (10:51)
[2020-07-02] MEDS: ENOXAPARIN NA (PORCINE) 40 MG/0.4 ML DISP.SYRIN SQ SCH (10:51)
[2020-07-02] MEDS: Lacosamide 200 MG/20 ML VIAL IVPB SCH ×2 (10:51→22:19)
[2020-07-02] MEDS: AMINO ACIDS/PROTEIN HYDROLYS 30 ML LIQUID.PKT PEG SCH (10:51)
--- NOTE | 2020-07-02 10:51 | CON.NEP ---
Consult Consult Specialty:: nephrology Reason for Consultation:: hypokalemai - History of Present Illness Chief Complaint: none History of Present Illness: 79 year old man with history with history of asthma, htn, anemia, anoxic insult, DM, neuropathy, ICH, trach etc who presneted from [place] with seizure. He is fluid overloaded and is on diuretics and has become hypokalemic. So nephrology was called. 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 NURSE: Yes: CVA, Peripheral Neuropathy, Seizure, Other (ICH, metabolic encephalopathy) Cardio/Vascular: Yes: HTN, Other (cardiac arrest) Pulmonary: Yes: Asthma, COPD, O2 Dependent, Other (trach to vent) Gastrointestinal: Yes: Other (PEG) Renal/: Yes: Other (chronic neely) ENT: Yes: Sinusitis Endocrine: Yes: Diabetes Mellitus - Alcohol/Substance Use Hx Alcohol Use: No - Smoking History Smoking history: Unknown if ever smoked Home Medications - Allergies Allergies/Adverse Reactions: Allergies Allergy/AdvReac Type Severity Reaction Status Date / Time No Known Allergies Allergy Verified 06/26/20 13:13 - Home Medications Home Medications: Ambulatory Orders Docusate Sodium [Colace Oral Solution -] 100 mg GT TID 06/26/20 Ferrous Sulfate [Feosol] 300 mg GT DAILY 06/26/20 Furosemide [Lasix -] 20 mg GT DAILY 06/26/20 Insulin Lispro [Admelog Solostar] 100 unit SQ [facility] 06/26/20 Lactobacillus Acidophilus [Acidophilus] 1 each GT DAILY 06/26/20 Levetiracetam [Spritam] 1,000 mg GT BID 06/26/20 Losartan Potassium [Cozaar] 100 mg GT DAILY 06/26/20 Metoprolol Tartrate [Lopressor -] 12.5 mg GT BID 06/26/20 Ondansetron [Zofran *Odt*] 4 mg SL TID PRN 06/26/20 Polyethylene Glycol 3350 [Miralax (For Daily Use) -] 17 gm GT DAILY 06/26/20 Senna [place] Extract [Senna] 176 mg GT HS 06/26/20 Nephrology Consult - Height Height: 6 ft - Weight Weight: 176 lb 1.6 oz - BMI Body Mass Index (BMI): 23.8 - Lab Results CBC,BMP: CBC, BMP 07/02/20 08:30 07/02/20 08:30 Anion Gap: Anion Gap Anion Gap 5 MMOL/L (8-16) L 07/02/20 08:30 - Imaging Chest X-ray: Report Reviewed (no changes, trach, dense left base) - Physical Examination Vital Signs: Vital Signs Temperature 99.1 F 07/02/20 05:41 Pulse Rate 81 07/02/20 05:41 Respiratory Rate 13 07/02/20 08:21 Blood Pressure 160/79 07/02/20 05:41 O2 Sat by Pulse Oximetry (%) 100 07/02/20 08:21 Constitutional: Yes: Well Nourished, No Distress Eyes: Yes: Conjunctiva Clear HENT: Yes: Atraumatic, Normocephalic, Other Neck: Yes: Other (trach) Cardiovascular: Yes: Regular Rate and Rhythm Respiratory: Yes: CTA Bilaterally Gastrointestinal: Yes: Normal Bowel Sounds, Soft, Other (has a PEG) Renal/: Yes: WNL Musculoskeletal: Yes: WNL Extremities: Yes: WNL Edema: LUE: 2+, RUE: 2+, LLE: 2+, RLE: 2+ Integumentary: Yes: WNL Wound/Incision: Yes: Clean/Dry Neurological: Yes: Unresponsive Psychiatric: Yes: Other (unresponsive) Assessment/Plan IMPRESSION seizure disorder fluid overload hypokalemia is better- likely from diuretics and and antibiotics some degree of metabolic alkalosis PLAN continue k replacements monitor magnesisum level as well urine potassium would be useless since patient is on diuretics use a potassium sparing diuretic if k again low MV
[2020-07-02] MEDS: levETIRAcetam 500 MG/5 ML INJECTION VIAL IVPB SCH ×2 (10:59→21:29)
[2020-07-02] MEDS: LOSARTAN POTASSIUM 50 MG TABLET (FP) GT SCH (11:05)
--- NOTE | 2020-07-02 12:18 | PN ---
Progress Note (short form) - Note Progress Note: PULMONARY Vented, unresponsive. No fevers recorded. Vital Signs Period Temp Pulse Resp BP Sys/Canela Pulse Ox Last 24 Hr 98.5 F-99.1 F 78-86 12-17 113-174/60-81 96-100 Gen: vented, awake Heart: RRR Lung: decreased breath sounds at the bases Abd: soft, nontender Ext: + edema CBC, BMP 07/02/20 08:30 07/02/20 08:30 Active Medications Acetaminophen (Tylenol Oral Solution -) 650 mg GT Q4H PRN PRN Reason: PAIN Amino Acids (Prosource No Carb Liquid Pkt) 30 ml PEG DAILY [facility] Last Admin: 07/02/20 10:51 Dose: 30 ml Documented by: Docusate Sodium (Colace Liquid -) 100 mg GT TID [facility] Last Admin: 07/02/20 05:43 Dose: 100 mg Documented by: Enoxaparin Sodium (Lovenox -) 40 mg SQ DAILY [facility] Last Admin: 07/02/20 10:51 Dose: 40 mg Documented by: Famotidine (Pepcid) 20 mg PEG DAILY [facility] Last Admin: 07/02/20 10:51 Dose: 20 mg Documented by: Ferrous Sulfate (Feosol) 300 mg GT DAILY [facility] Last Admin: 07/02/20 10:51 Dose: 300 mg Documented by: Furosemide (Lasix Injection -) 40 mg IVPUSH BID@0600,1400 [facility] Last Admin: 07/02/20 05:43 Dose: 40 mg Documented by: Piperacillin Sod/Tazobactam (Sod 3.375 gm/ Dextrose) 50 mls @ 100 mls/hr IVPB Q8H-IV [facility]; Protocol Last Admin: 07/02/20 10:58 Dose: 100 mls/hr Documented by: Vancomycin HCl (Vancomycin (Pre-Docked)) 1,000 mg in 250 mls @ 166.667 mls/hr IVPB Q12H [facility]; Protocol Last Admin: 07/02/20 03:24 Dose: 166.667 mls/hr Documented by: Insulin Aspart (Novolog Vial Sliding Scale -) 1 vial SQ Q6H [facility]; Protocol Last Admin: 07/02/20 05:43 Dose: Not Given Documented by: Labetalol HCl (Normodyne Injection -) 10 mg IVPUSH Q8H PRN PRN Reason: HYPERTENSION Lacosamide (Vimpat Injection -) 100 mg IVPB BID [facility] Last Admin: 07/02/20 10:51 Dose: 100 mg Documented by: Levetiracetam (Keppra Injection -) 1,250 mg IVPB BID [facility] Last Admin: 07/02/20 10:59 Dose: 1,250 mg Documented by: Lorazepam (Ativan Injection -) 2 mg IVPUSH Q4H PRN PRN Reason: AGITATION Last Admin: 06/30/20 19:03 Dose: 2 mg Documented by: Losartan Potassium (Cozaar -) 100 mg GT DAILY [facility] Last Admin: 07/02/20 11:05 Dose: 100 mg Documented by: Metoprolol Tartrate (Lopressor -) 12.5 mg GT BID [facility] Last Admin: 07/02/20 10:50 Dose: 12.5 mg Documented by: Polyethylene Glycol (Miralax (For Daily Use) -) 17 gm GT DAILY [facility] Last Admin: 07/02/20 10:51 Dose: 17 grams Documented by: Potassium Chloride (Potassium Chloride Oral Liquid) 40 meq GT BID [facility] Last Admin: 07/02/20 10:50 Dose: 40 meq Documented by: Valproate Sodium (Depacon Injection -) 750 mg IVPB BID [facility] Last Admin: 07/01/20 23:46 Dose: 750 mg Documented by: A/P Chronic Respiratory Failure Status Epilepticus resolved Seizure Disorder Anoxic Encephalopathy Pneumonia Gram Positive Bacteremia COPD HTN DM Asthma Anemia - antiepileptics per neuro - continue antibiotics - O2 to keep SpO2 >90% - poor candidate for weaning given poor mental status - enteral feeds - DVT/GI prophylaxis
--- NOTE | 2020-07-02 13:04 | PN ---
Progress Note, Physician Chief Complaint: EVENTS AND NOTES REVIEWED ASLEEP NO CHANGES OVERNIGHT - Current Medication List Current Medications: Active Medications Acetaminophen (Tylenol Oral Solution -) 650 mg GT Q4H PRN PRN Reason: PAIN Amino Acids (Prosource No Carb Liquid Pkt) 30 ml PEG DAILY [facility] Last Admin: 07/02/20 10:51 Dose: 30 ml Documented by: Docusate Sodium (Colace Liquid -) 100 mg GT TID [facility] Last Admin: 07/02/20 05:43 Dose: 100 mg Documented by: Enoxaparin Sodium (Lovenox -) 40 mg SQ DAILY [facility] Last Admin: 07/02/20 10:51 Dose: 40 mg Documented by: Famotidine (Pepcid) 20 mg PEG DAILY [facility] Last Admin: 07/02/20 10:51 Dose: 20 mg Documented by: Ferrous Sulfate (Feosol) 300 mg GT DAILY [facility] Last Admin: 07/02/20 10:51 Dose: 300 mg Documented by: Furosemide (Lasix Injection -) 40 mg IVPUSH BID@0600,1400 [facility] Last Admin: 07/02/20 05:43 Dose: 40 mg Documented by: Piperacillin Sod/Tazobactam (Sod 3.375 gm/ Dextrose) 50 mls @ 100 mls/hr IVPB Q8H-IV [facility]; Protocol Last Admin: 07/02/20 10:58 Dose: 100 mls/hr Documented by: Vancomycin HCl (Vancomycin (Pre-Docked)) 1,000 mg in 250 mls @ 166.667 mls/hr IVPB Q12H [facility]; Protocol Last Admin: 07/02/20 03:24 Dose: 166.667 mls/hr Documented by: Insulin Aspart (Novolog Vial Sliding Scale -) 1 vial SQ Q6H [facility]; Protocol Last Admin: 07/02/20 05:43 Dose: Not Given Documented by: Labetalol HCl (Normodyne Injection -) 10 mg IVPUSH Q8H PRN PRN Reason: HYPERTENSION Lacosamide (Vimpat Injection -) 100 mg IVPB BID [facility] Last Admin: 07/02/20 10:51 Dose: 100 mg Documented by: Levetiracetam (Keppra Injection -) 1,250 mg IVPB BID [facility] Last Admin: 07/02/20 10:59 Dose: 1,250 mg Documented by: Lorazepam (Ativan Injection -) 2 mg IVPUSH Q4H PRN PRN Reason: AGITATION Last Admin: 06/30/20 19:03 Dose: 2 mg Documented by: Losartan Potassium (Cozaar -) 100 mg GT DAILY [facility] Last Admin: 07/02/20 11:05 Dose: 100 mg Documented by: Metoprolol Tartrate (Lopressor -) 12.5 mg GT BID [facility] Last Admin: 07/02/20 10:50 Dose: 12.5 mg Documented by: Polyethylene Glycol (Miralax (For Daily Use) -) 17 gm GT DAILY [facility] Last Admin: 07/02/20 10:51 Dose: 17 grams Documented by: Potassium Chloride (Potassium Chloride Oral Liquid) 40 meq GT BID [facility] Last Admin: 07/02/20 10:50 Dose: 40 meq Documented by: Valproate Sodium (Depacon Injection -) 750 mg IVPB BID [facility] Last Admin: 07/01/20 23:46 Dose: 750 mg Documented by: - Objective Vital Signs: Vital Signs Temperature 99.1 F 07/02/20 05:41 Pulse Rate 81 07/02/20 05:41 Respiratory Rate 16 07/02/20 12:13 Blood Pressure 160/79 07/02/20 05:41 O2 Sat by Pulse Oximetry (%) 96 07/02/20 12:13 Constitutional: Yes: Mild Distress Cardiovascular: Yes: Pulse Irregular Respiratory: Yes: Mechanically Ventilated Gastrointestinal: Yes: Other Genitourinary: Yes: Incontinence Labs: CBC, BMP 07/02/20 08:30 07/02/20 08:30 INR, PTT INR 1.15 (0.83-1.09) H 06/26/20 12:55 Problem List - Problems (1) Anemia Code(s): D64.9 - ANEMIA, UNSPECIFIED Qualifiers: Anemia type: unspecified type Qualified Code(s): D64.9 - Anemia, unspecified (2) Bacteremia Code(s): R78.81 - BACTEREMIA (3) CVA (cerebral vascular accident) Code(s): I63.9 - CEREBRAL INFARCTION, UNSPECIFIED (4) Chronic indwelling Bryant catheter Code(s): Z97.8 - PRESENCE OF OTHER SPECIFIED DEVICES (5) Hypokalemia Code(s): E87.6 - HYPOKALEMIA (6) Respiratory failure Code(s): J96.90 - RESPIRATORY FAILURE, UNSP, UNSP W HYPOXIA OR HYPERCAPNIA (7) Seizure disorder Code(s): G40.909 - EPILEPSY, UNSP, NOT INTRACTABLE, WITHOUT STATUS EPILEPTICUS Assessment/Plan PULMONARY SUPPORT CONTINUED AND CONSULT APPRECIATED NO SEIZURE ACTIVITY ID F/U ON IV ABX BACTEREMIA ESRD RENAL F/U APPRECIATED
[2020-07-02] MEDS: VALPROATE SODIUM 500 MG/5 ML VIAL IVPB SCH ×2 (13:16→23:42)
[2020-07-02] MEDS: NYSTATIN 500,000 UNITS/5 ML SUSPENSION PO SCH ×2 (17:44→23:44)
[2020-07-03] MEDS: INSULIN SLIDING SCALE (NOVOLOG) 1 VIAL SQ SCH ×4 (00:10→17:38)
[2020-07-03] MEDS ORDERED: PIPERACILLIN/TAZOBACTAM 3.375 GM VIAL IVPB ONE ×3 (01:20→16:55)
[2020-07-03] MEDS ORDERED: DEXTROSE 5%-WATER - 50 ML IVPB ONE ×3 (01:20→16:55)
[2020-07-03] MEDS: PIPERACILLIN/TAZOB 3.375 GM 3.375 GM in DEXTROSE 5%-WATER - 50 ML IVPB SCH ×3 (01:29→17:15)
[2020-07-03] MEDS: VANCOMYCIN 1 GRAM (PRE-DOCKED) 1,000 MG/250 ML BAG IVPB SCH ×2 (02:08→14:58)
[2020-07-03] MEDS: DOCUSATE NA 100 MG/10 ML UNIT-DOSE CUPS GT SCH ×3 (05:54→23:14)
[2020-07-03] MEDS: FUROSEMIDE 40 MG/4 ML INJECTABLE VIAL IVPUSH SCH (05:54)
[2020-07-03] MEDS: NYSTATIN 500,000 UNITS/5 ML SUSPENSION PO SCH ×4 (05:55→23:16)
[2020-07-03 09:20] LABS: BASO % 0.3 % (0-2.0); EOS % 4.1 % (0-4.5); HEMATOCRIT 27.4 % (35.4-49); HEMOGLOBIN 8.7 GM/dL (11.7-16.9); LYMPH % 23.3 % (8-40); MCH 26.2 pg (25.7-33.7); MCHC 31.7 g/dl (32.0-35.9); MEAN CELL VOLUME 82.7 fl (80-96); MEAN PLT VOLUME 7.4 fl (7.5-11.1); MONO % 12.4 % (3.8-10.2); NEUT % 59.9 % (42.8-82.8); PLATELET COUNT 634 K/MM3 (134-434); RBC 3.31 M/mm3 (4.00-5.60); RDW 17.7 % (11.9-15.9); WHITE BLOOD COUNT 8.4 K/mm3 (4.0-10.0)
[2020-07-03 09:59] LABS: ALBUMIN 2.1 g/dl (3.4-5.0); BLOOD UREA NITROGEN 18.6 mg/dL (7-18); CALCIUM 9.5 mg/dL (8.5-10.1); POTASSIUM 4.4 mmol/L (3.5-5.1)
[2020-07-03 10:03] LABS: CREATININE 0.7 mg/dL (0.55-1.3)
[2020-07-03 10:25] LABS: BILIRUBIN,TOTAL 0.3 mg/dL (0.2-1)
[2020-07-03] MEDS ORDERED: PT OWN MED DRAWER 7, Y5N ONE (10:38)
[2020-07-03] MEDS: VALPROATE SODIUM 500 MG/5 ML VIAL IVPB SCH (11:02)
[2020-07-03] MEDS: levETIRAcetam 500 MG/5 ML INJECTION VIAL IVPB SCH (11:03)
[2020-07-03] MEDS: Lacosamide 200 MG/20 ML VIAL IVPB SCH (11:03)
--- NOTE | 2020-07-03 11:03 | PN ---
Progress Note, Physician Chief Complaint: INCREASED DIARRHEA NON-BLOODY NO FOUL SMELL NO FEVER - Current Medication List Current Medications: Active Medications Acetaminophen (Tylenol Oral Solution -) 650 mg GT Q4H PRN PRN Reason: PAIN Amino Acids (Prosource No Carb Liquid Pkt) 30 ml PEG DAILY [facility] Last Admin: 07/02/20 10:51 Dose: 30 ml Documented by: Docusate Sodium (Colace Liquid -) 100 mg GT TID [facility] Last Admin: 07/03/20 05:54 Dose: Not Given Documented by: Enoxaparin Sodium (Lovenox -) 40 mg SQ DAILY [facility] Last Admin: 07/02/20 10:51 Dose: 40 mg Documented by: Famotidine (Pepcid) 20 mg PEG DAILY [facility] Last Admin: 07/02/20 10:51 Dose: 20 mg Documented by: Ferrous Sulfate (Feosol) 300 mg GT DAILY [facility] Last Admin: 07/02/20 10:51 Dose: 300 mg Documented by: Piperacillin Sod/Tazobactam (Sod 3.375 gm/ Dextrose) 50 mls @ 100 mls/hr IVPB Q8H-IV [facility]; Protocol Last Admin: 07/03/20 01:29 Dose: 100 mls/hr Documented by: Vancomycin HCl (Vancomycin (Pre-Docked)) 1,000 mg in 250 mls @ 166.667 mls/hr IVPB Q12H [facility]; Protocol Last Admin: 07/03/20 02:08 Dose: 166.667 mls/hr Documented by: Insulin Aspart (Novolog Vial Sliding Scale -) 1 vial SQ Q6H [facility]; Protocol Last Admin: 07/03/20 06:06 Dose: Not Given Documented by: Labetalol HCl (Normodyne Injection -) 10 mg IVPUSH Q8H PRN PRN Reason: HYPERTENSION Lacosamide (Vimpat Liquid -) 100 mg GT BID [facility] Levetiracetam (Keppra Oral Solution -) 1,250 mg GT BID [facility] Losartan Potassium (Cozaar -) 100 mg GT DAILY [facility] Last Admin: 07/02/20 11:05 Dose: 100 mg Documented by: Metoprolol Tartrate (Lopressor -) 12.5 mg GT BID [facility] Last Admin: 07/02/20 22:19 Dose: 12.5 mg Documented by: Nystatin (Nystatin Oral Suspension -) 500,000 units PO Q6HPO [facility] Last Admin: 07/03/20 05:55 Dose: 500,000 units Documented by: Polyethylene Glycol (Miralax (For Daily Use) -) 17 gm GT DAILY [facility] Last Admin: 07/02/20 10:51 Dose: 17 grams Documented by: Potassium Chloride (Potassium Chloride Oral Liquid) 40 meq GT BID [facility] Last Admin: 07/02/20 22:19 Dose: 40 meq Documented by: Valproate Sodium (Depakene -) 750 mg GT BID [facility] - Objective Vital Signs: Vital Signs Temperature 98.5 F 07/03/20 06:00 Pulse Rate 86 07/03/20 06:00 Respiratory Rate 13 07/03/20 08:16 Blood Pressure 178/84 H 07/03/20 06:00 O2 Sat by Pulse Oximetry (%) 99 07/03/20 08:16 Constitutional: Yes: No Distress Cardiovascular: Yes: Pulse Irregular Respiratory: Yes: Mechanically Ventilated Gastrointestinal: Yes: Other (GT) Genitourinary: Yes: Incontinence Neurological: Yes: Seizure Labs: CBC, BMP 07/03/20 08:25 07/03/20 08:25 INR, PTT INR 1.15 (0.83-1.09) H 06/26/20 12:55 Problem List - Problems (1) Anemia Code(s): D64.9 - ANEMIA, UNSPECIFIED Qualifiers: Anemia type: unspecified type Qualified Code(s): D64.9 - Anemia, unspecified (2) Bacteremia Code(s): R78.81 - BACTEREMIA (3) CVA (cerebral vascular accident) Code(s): I63.9 - CEREBRAL INFARCTION, UNSPECIFIED (4) Chronic indwelling Bryant catheter Code(s): Z97.8 - PRESENCE OF OTHER SPECIFIED DEVICES (5) Hypokalemia Code(s): E87.6 - HYPOKALEMIA (6) Respiratory failure Code(s): J96.90 - RESPIRATORY FAILURE, UNSP, UNSP W HYPOXIA OR HYPERCAPNIA (7) Seizure disorder Code(s): G40.909 - EPILEPSY, UNSP, NOT INTRACTABLE, WITHOUT STATUS EPILEPTICUS Assessment/Plan RECTAL TUBE REINSERTED MONITOR LABS CHANGED ALL MEDS TO GTUBE SEIZURE PRECAUTIONS LABS REVIEWED IV ABX CONTINUE
--- NOTE | 2020-07-03 11:33 | PN ---
Progress Note (short form) - Note Progress Note: RENAL Pt remains on vent via trach apparently has been having diarrhea Last Vital Signs Temp Pulse Resp BP Pulse Ox 98.5 F 86 13 178/84 H 99 07/03/20 06:00 07/03/20 06:00 07/03/20 08:16 07/03/20 06:00 07/03/20 08:16 lungs bilat air entry cvs s1s2 abd soft ext +edema CBC, BMP 07/03/20 08:25 07/03/20 08:25 Current Medications Generic Name Dose Route Start Last Admin Trade Name Freq PRN Reason Stop Dose Admin Acetaminophen 650 mg 06/29/20 18:18 Tylenol Oral Solution - GT Q4H PRN PAIN Amino Acids 30 ml 07/02/20 10:00 07/02/20 10:51 Prosource No Carb Liquid Pkt PEG 30 ml DAILY [facility] Administration Docusate Sodium 100 mg 06/29/20 22:00 07/03/20 05:54 Colace Liquid - GT Not Given TID [facility] Enoxaparin Sodium 40 mg 06/28/20 10:00 07/02/20 10:51 Lovenox - SQ 40 mg DAILY [facility] Administration Famotidine 20 mg 06/30/20 10:00 07/02/20 10:51 Pepcid PEG 20 mg DAILY [facility] Administration Ferrous Sulfate 300 mg 06/30/20 10:00 07/02/20 10:51 Feosol GT 300 mg DAILY [facility] Administration Furosemide 40 mg 07/03/20 14:00 Lasix Oral Solution - GT BID@0600,1400 [facility] Piperacillin Sod/Tazobactam 50 mls @ 100 mls/hr 06/28/20 18:00 07/03/20 01:29 Sod 3.375 gm/ Dextrose IVPB 100 mls/hr Q8H-IV [facility] Administration Protocol Vancomycin HCl 1,000 mg in 250 mls @ 166.667 mls/hr 07/01/20 14:00 07/03/20 02:08 Vancomycin (Pre-Docked) IVPB 166.667 mls/hr Q12H [facility] Administration Protocol Insulin Aspart 1 vial 06/29/20 18:31 07/03/20 06:06 Novolog Vial Sliding Scale - SQ Not Given Q6H [facility] Protocol Labetalol HCl 10 mg 06/28/20 13:47 Normodyne Injection - IVPUSH Q8H PRN HYPERTENSION Lacosamide 100 mg 07/03/20 11:30 Vimpat Liquid - GT BID [facility] Levetiracetam 1,250 mg 07/03/20 11:30 Keppra Oral Solution - GT BID [facility] Losartan Potassium 100 mg 06/30/20 10:00 07/02/20 11:05 Cozaar - GT 100 mg DAILY [facility] Administration Metoprolol Tartrate 12.5 mg 06/29/20 22:00 07/02/20 22:19 Lopressor - GT 12.5 mg BID [facility] Administration Nystatin 500,000 units 07/02/20 18:00 07/03/20 05:55 Nystatin Oral Suspension - PO 500,000 units Q6HPO [facility] Administration Polyethylene Glycol 17 gm 06/30/20 10:00 07/02/20 10:51 Miralax (For Daily Use) - GT 17 grams DAILY [facility] Administration Potassium Chloride 40 meq 07/01/20 14:17 07/02/20 22:19 Potassium Chloride Oral Liquid GT 40 meq BID [facility] Administration Valproate Sodium 750 mg 07/03/20 11:30 Depakene - GT BID [facility] IMPRESSION seizure disorder fluid overload hypokalemia is better- likely from diuretics, antibiotics and now diarrhea some degree of metabolic alkalosis PLAN increase metoprolol continue k replacements continue diuresis renal function is stable MV
--- NOTE | 2020-07-03 11:42 | PN ---
Progress Note (short form) - Note Progress Note: PULMONARY Vented, unresponsive. No fevers recorded. Vital Signs Period Temp Pulse Resp BP Sys/Canela Pulse Ox Last 24 Hr 98.1 F-99.2 F 79-86 13-16 152-178/69-96 96-100 Gen: vented, awake Heart: RRR Lung: decreased breath sounds at the bases Abd: soft, nontender Ext: + edema CBC, BMP 07/03/20 08:25 07/03/20 08:25 Active Medications Acetaminophen (Tylenol Oral Solution -) 650 mg GT Q4H PRN PRN Reason: PAIN Amino Acids (Prosource No Carb Liquid Pkt) 30 ml PEG DAILY [facility] Last Admin: 07/02/20 10:51 Dose: 30 ml Documented by: Docusate Sodium (Colace Liquid -) 100 mg GT TID [facility] Last Admin: 07/03/20 05:54 Dose: Not Given Documented by: Enoxaparin Sodium (Lovenox -) 40 mg SQ DAILY [facility] Last Admin: 07/02/20 10:51 Dose: 40 mg Documented by: Famotidine (Pepcid) 20 mg PEG DAILY [facility] Last Admin: 07/02/20 10:51 Dose: 20 mg Documented by: Ferrous Sulfate (Feosol) 300 mg GT DAILY [facility] Last Admin: 07/02/20 10:51 Dose: 300 mg Documented by: Furosemide (Lasix Oral Solution -) 40 mg GT BID@0600,1400 [facility] Piperacillin Sod/Tazobactam (Sod 3.375 gm/ Dextrose) 50 mls @ 100 mls/hr IVPB Q8H-IV [facility]; Protocol Last Admin: 07/03/20 01:29 Dose: 100 mls/hr Documented by: Vancomycin HCl (Vancomycin (Pre-Docked)) 1,000 mg in 250 mls @ 166.667 mls/hr IVPB Q12H [facility]; Protocol Last Admin: 07/03/20 02:08 Dose: 166.667 mls/hr Documented by: Insulin Aspart (Novolog Vial Sliding Scale -) 1 vial SQ Q6H [facility]; Protocol Last Admin: 07/03/20 06:06 Dose: Not Given Documented by: Labetalol HCl (Normodyne Injection -) 10 mg IVPUSH Q8H PRN PRN Reason: HYPERTENSION Lacosamide (Vimpat Liquid -) 100 mg GT BID [facility] Levetiracetam (Keppra Oral Solution -) 1,250 mg GT BID [facility] Losartan Potassium (Cozaar -) 100 mg GT DAILY [facility] Last Admin: 07/02/20 11:05 Dose: 100 mg Documented by: Metoprolol Tartrate (Lopressor -) 12.5 mg GT BID [facility] Last Admin: 07/02/20 22:19 Dose: 12.5 mg Documented by: Nystatin (Nystatin Oral Suspension -) 500,000 units PO Q6HPO [facility] Last Admin: 07/03/20 05:55 Dose: 500,000 units Documented by: Polyethylene Glycol (Miralax (For Daily Use) -) 17 gm GT DAILY [facility] Last Admin: 07/02/20 10:51 Dose: 17 grams Documented by: Potassium Chloride (Potassium Chloride Oral Liquid) 40 meq GT BID [facility] Last Admin: 07/02/20 22:19 Dose: 40 meq Documented by: Valproate Sodium (Depakene -) 750 mg GT BID [facility] A/P Chronic Respiratory Failure Status Epilepticus resolved Seizure Disorder Anoxic Encephalopathy Pneumonia Gram Positive Bacteremia COPD HTN DM Asthma Anemia - antiepileptics per neuro - continue antibiotics - O2 to keep SpO2 >90% - poor candidate for weaning given poor mental status - enteral feeds - DVT/GI prophylaxis
[2020-07-03] MEDS: AMINO ACIDS/PROTEIN HYDROLYS 30 ML LIQUID.PKT PEG SCH (11:43)
[2020-07-03] MEDS: LOSARTAN POTASSIUM 50 MG TABLET (FP) GT SCH (11:43)
[2020-07-03] MEDS: METOPROLOL TARTRATE 25 MG TABLET (FP) GT SCH ×2 (11:43→23:16)
[2020-07-03] MEDS: FAMOTIDINE 40 MG/5 ML ORAL SUSPENSION PEG SCH (11:44)
[2020-07-03] MEDS: FERROUS SO4 300 MG/5 ML ORAL SOLN UNIT DOSE CUPS GT SCH (11:44)
[2020-07-03] MEDS: POTASSIUM CHLORIDE ORAL LIQUID 20 MEQ/15 ML GT SCH ×2 (11:44→23:16)
[2020-07-03] MEDS: ENOXAPARIN NA (PORCINE) 40 MG/0.4 ML DISP.SYRIN SQ SCH (11:44)
[2020-07-03] MEDS: Lacosamide 50 MG/5 ML ORAL SOLUTION UNIT CUPS GT SCH ×2 (11:45→23:15)
[2020-07-03] MEDS: POLYETHYLENE GLYCOL 3350 119 GM BTL GT SCH (11:45)
[2020-07-03] MEDS: VALPROATE SODIUM 250 MG/5 ML UNIT DOSE CUP GT SCH ×2 (11:46→23:15)
[2020-07-03] MEDS: levETIRAcetam 500 MG/5 ML ORAL SOLUTION (UNIT-DOSE CUPS) GT SCH ×2 (11:46→23:27)
[2020-07-03] MEDS: FUROSEMIDE 40 MG/5 ML UNIT-DOSE CUP GT SCH (14:58)
[2020-07-03] MEDS ORDERED: levETIRAcetam 500 MG/5 ML ORAL SOLUTION (UNIT-DOSE CUPS) GT SCH (22:00)
[2020-07-03] MEDS ORDERED: Lacosamide 50 MG/5 ML ORAL SOLUTION UNIT CUPS GT SCH (22:00)
[2020-07-03] MEDS ORDERED: VALPROATE SODIUM 250 MG/5 ML UNIT DOSE CUP GT SCH (22:00)
[2020-07-04] MEDS: INSULIN SLIDING SCALE (NOVOLOG) 1 VIAL SQ SCH ×5 (01:25→23:37)
[2020-07-04] MEDS ORDERED: PIPERACILLIN/TAZOBACTAM 3.375 GM VIAL IVPB ONE ×2 (01:27→11:22)
[2020-07-04] MEDS ORDERED: DEXTROSE 5%-WATER - 50 ML IVPB ONE ×2 (01:27→11:22)
[2020-07-04] MEDS: PIPERACILLIN/TAZOB 3.375 GM 3.375 GM in DEXTROSE 5%-WATER - 50 ML IVPB SCH ×2 (01:29→11:27)
[2020-07-04] MEDS: VANCOMYCIN 1 GRAM (PRE-DOCKED) 1,000 MG/250 ML BAG IVPB SCH (02:59)
[2020-07-04] MEDS: NYSTATIN 500,000 UNITS/5 ML SUSPENSION PO SCH ×4 (05:54→23:08)
[2020-07-04] MEDS: DOCUSATE NA 100 MG/10 ML UNIT-DOSE CUPS GT SCH ×3 (05:54→22:24)
[2020-07-04] MEDS: FUROSEMIDE 40 MG/5 ML UNIT-DOSE CUP GT SCH ×2 (06:10→13:05)
[2020-07-04 07:43] LABS: BASO % 0.3 % (0-2.0); EOS % 3.6 % (0-4.5); HEMATOCRIT 27.7 % (35.4-49); HEMOGLOBIN 8.7 GM/dL (11.7-16.9); LYMPH % 26.6 % (8-40); MCH 25.7 pg (25.7-33.7); MCHC 31.4 g/dl (32.0-35.9); MEAN CELL VOLUME 81.9 fl (80-96); MEAN PLT VOLUME 7.3 fl (7.5-11.1); MONO % 8.7 % (3.8-10.2); NEUT % 60.8 % (42.8-82.8); PLATELET COUNT 627 K/MM3 (134-434); RBC 3.38 M/mm3 (4.00-5.60); RDW 17.5 % (11.9-15.9)
[2020-07-04 08:11] LABS: ALBUMIN 2.1 g/dl (3.4-5.0); BILIRUBIN,TOTAL 0.3 mg/dL (0.2-1); BLOOD UREA NITROGEN 16.2 mg/dL (7-18); CALCIUM 9.3 mg/dL (8.5-10.1); CREATININE 0.6 mg/dL (0.55-1.3); POTASSIUM 4.3 mmol/L (3.5-5.1); TOT PROT 6.7 g/dl (6.4-8.2)
--- NOTE | 2020-07-04 10:44 | PN ---
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
[2020-07-04] MEDS: VALPROATE SODIUM 250 MG/5 ML UNIT DOSE CUP GT SCH ×2 (10:49→22:26)
[2020-07-04] MEDS: LOSARTAN POTASSIUM 50 MG TABLET (FP) GT SCH (10:49)
[2020-07-04] MEDS: POTASSIUM CHLORIDE ORAL LIQUID 20 MEQ/15 ML GT SCH ×2 (10:51→22:24)
[2020-07-04] MEDS: Lacosamide 50 MG/5 ML ORAL SOLUTION UNIT CUPS GT SCH ×2 (10:52→22:24)
[2020-07-04] MEDS: levETIRAcetam 500 MG/5 ML ORAL SOLUTION (UNIT-DOSE CUPS) GT SCH ×2 (10:52→22:25)
--- NOTE | 2020-07-04 11:26 | PN ---
Progress Note, Physician Chief Complaint: Status epilepticus UTI Anemia History of Present Illness: NAD, on mech vent Generalized edema improved obtunded afebrile overnight - Current Medication List Current Medications: Active Medications Acetaminophen (Tylenol Oral Solution -) 650 mg GT Q4H PRN PRN Reason: PAIN Amino Acids (Prosource No Carb Liquid Pkt) 30 ml PEG DAILY [facility] Last Admin: 07/03/20 11:43 Dose: 30 ml Documented by: Docusate Sodium (Colace Liquid -) 100 mg GT TID [facility] Last Admin: 07/04/20 05:54 Dose: Not Given Documented by: Enoxaparin Sodium (Lovenox -) 40 mg SQ DAILY [facility] Last Admin: 07/03/20 11:44 Dose: 40 mg Documented by: Famotidine (Pepcid) 20 mg PEG DAILY [facility] Last Admin: 07/03/20 11:44 Dose: 20 mg Documented by: Ferrous Sulfate (Feosol) 300 mg GT DAILY [facility] Last Admin: 07/03/20 11:44 Dose: 300 mg Documented by: Furosemide (Lasix Oral Solution -) 40 mg GT BID@0600,1400 [facility] Last Admin: 07/03/20 14:58 Dose: 40 mg Documented by: Piperacillin Sod/Tazobactam (Sod 3.375 gm/ Dextrose) 50 mls @ 100 mls/hr IVPB Q8H-IV [facility]; Protocol Last Admin: 07/04/20 01:29 Dose: 100 mls/hr Documented by: Vancomycin HCl (Vancomycin (Pre-Docked)) 1,000 mg in 250 mls @ 166.667 mls/hr IVPB Q12H [facility]; Protocol Last Admin: 07/04/20 02:59 Dose: 166.667 mls/hr Documented by: Insulin Aspart (Novolog Vial Sliding Scale -) 1 vial SQ Q6H [facility]; Protocol Last Admin: 07/04/20 06:10 Dose: Not Given Documented by: Labetalol HCl (Normodyne Injection -) 10 mg IVPUSH Q8H PRN PRN Reason: HYPERTENSION Lacosamide (Vimpat Liquid -) 100 mg GT BID [facility] Last Admin: 07/03/20 23:15 Dose: 100 mg Documented by: Levetiracetam (Keppra Oral Solution -) 1,250 mg GT BID [facility] Last Admin: 07/03/20 23:27 Dose: 1,250 mg Documented by: Losartan Potassium (Cozaar -) 100 mg GT DAILY [facility] Last Admin: 07/03/20 11:43 Dose: 100 mg Documented by: Metoprolol Tartrate (Lopressor -) 12.5 mg GT BID [facility] Last Admin: 07/03/20 23:16 Dose: 12.5 mg Documented by: Nystatin (Nystatin Oral Suspension -) 500,000 units PO Q6HPO [facility] Last Admin: 07/04/20 05:54 Dose: 500,000 units Documented by: Polyethylene Glycol (Miralax (For Daily Use) -) 17 gm GT DAILY [facility] Last Admin: 07/03/20 11:45 Dose: Not Given Documented by: Potassium Chloride (Potassium Chloride Oral Liquid) 40 meq GT BID [facility] Last Admin: 07/03/20 23:16 Dose: 40 meq Documented by: Valproate Sodium (Depakene -) 750 mg GT BID [facility] Last Admin: 07/03/20 23:15 Dose: 750 mg Documented by: - Objective Vital Signs: Vital Signs Temperature 99.5 F 07/04/20 05:00 Pulse Rate 88 07/04/20 08:30 Respiratory Rate 13 07/04/20 08:30 Blood Pressure 141/75 07/04/20 05:00 O2 Sat by Pulse Oximetry (%) 98 07/04/20 08:30 Constitutional: Yes: Well Nourished, No Distress, Calm Cardiovascular: Yes: Regular Rate and Rhythm Respiratory: Yes: Regular, Mechanically Ventilated, Rhonchi (diffuse) Gastrointestinal: Yes: Normal Bowel Sounds, Soft, Abdomen, Obese Genitourinary: Yes: Neely Present Musculoskeletal: Yes: WNL Extremities: Yes: Other (generalized atrophy) Edema: Yes (generalized) Peripheral Pulses WNL: Yes Neurological: Yes: Pre-Existing Deficit Labs: CBC, BMP 07/04/20 06:45 07/04/20 06:45 INR, PTT INR 1.15 (0.83-1.09) H 06/26/20 12:55 Problem List - Problems (1) Bacteremia Assessment/Plan: -First BC growing Staph-contaminant? -Repeat BC preliminary negative -D/C IV Vanco+ Zosyn and monitor -ID on board -Afebrile Problems reviewed: Yes Code(s): R78.81 - BACTEREMIA (2) Chronic indwelling Neely catheter Assessment/Plan: -maintain neely Problems reviewed: Yes Code(s): Z97.8 - PRESENCE OF OTHER SPECIFIED DEVICES (3) Edema Assessment/Plan: -Continue Furosemide 40 mg GT BID Problems reviewed: Yes Code(s): R60.9 - EDEMA, UNSPECIFIED Qualifiers: Edema type: unspecified Qualified Code(s): R60.9 - Edema, unspecified (4) Status epilepticus Assessment/Plan: -Seen by Neurology and Neurosurgery -Continue depakote and Vimpat -Ativan PRN Problems reviewed: Yes Code(s): G40.901 - EPILEPSY, UNSP, NOT INTRACTABLE, WITH STATUS EPILEPTICUS (5) UTI (urinary tract infection) Assessment/Plan: -UC:negative -IV abx Problems reviewed: Yes Code(s): N39.0 - URINARY TRACT INFECTION, SITE NOT SPECIFIED (6) Diabetes Assessment/Plan: -Recheck A1c -BGM AC HS -TF: Glucerna -ISS Problems reviewed: Yes Code(s): E11.9 - TYPE 2 DIABETES MELLITUS WITHOUT COMPLICATIONS (7) Anemia Assessment/Plan: -Stool OB negative -Thyroid+ B12 normal -THADDEUS -Unable to give IV iron due to bacteremia -Start Ferrous sulfate daily -Monitor trend -Do no transfuse unless Hg<7.0 to avoid fluid overload Problems reviewed: Yes Code(s): D64.9 - ANEMIA, UNSPECIFIED Qualifiers: Anemia type: unspecified type Qualified Code(s): D64.9 - Anemia, uns pecified (8) Hypokalemia Assessment/Plan: -resolved Problems reviewed: Yes Code(s): E87.6 - HYPOKALEMIA (9) Diarrhea Assessment/Plan: -Check Cdiff Problems reviewed: Yes Code(s): R19.7 - DIARRHEA, UNSPECIFIED Assessment/Plan See problem list repeat COVID-19 in preparation of d/c
[2020-07-04] MEDS: ENOXAPARIN NA (PORCINE) 40 MG/0.4 ML DISP.SYRIN SQ SCH (11:27)
[2020-07-04] MEDS: METOPROLOL TARTRATE 25 MG TABLET (FP) GT SCH ×2 (11:48→22:29)
[2020-07-04] MEDS: AMINO ACIDS/PROTEIN HYDROLYS 30 ML LIQUID.PKT PEG SCH (11:48)
[2020-07-04] MEDS: FERROUS SO4 300 MG/5 ML ORAL SOLN UNIT DOSE CUPS GT SCH (11:50)
[2020-07-04] MEDS: FAMOTIDINE 40 MG/5 ML ORAL SUSPENSION PEG SCH (11:53)
[2020-07-04] MEDS: POLYETHYLENE GLYCOL 3350 119 GM BTL GT SCH (11:54)
--- NOTE | 2020-07-04 13:15 | PN ---
Progress Note, Physician History of Present Illness: NOT RESPONSIVE ON VENTILATOR +BC SCN X 2 BOTTLES PROBABLE CONTAMINANT AFEBRILE WBC IMPROVED WNL SPUTUM C/S PSEUDOMONAS SP - Current Medication List Current Medications: Active Medications Acetaminophen (Tylenol Oral Solution -) 650 mg GT Q4H PRN PRN Reason: PAIN Amino Acids (Prosource No Carb Liquid Pkt) 30 ml PEG DAILY [facility] Last Admin: 07/04/20 11:48 Dose: 30 ml Documented by: Banana Based Medical Food (Banatrol Plus Powder Packet) 1 packet PO TID [facility] Docusate Sodium (Colace Liquid -) 100 mg GT TID [facility] Last Admin: 07/04/20 05:54 Dose: Not Given Documented by: Enoxaparin Sodium (Lovenox -) 40 mg SQ DAILY [facility] Last Admin: 07/04/20 11:27 Dose: 40 mg Documented by: Famotidine (Pepcid) 20 mg PEG DAILY [facility] Last Admin: 07/04/20 11:53 Dose: 20 mg Documented by: Ferrous Sulfate (Feosol) 300 mg GT DAILY [facility] Last Admin: 07/04/20 11:50 Dose: 300 mg Documented by: Furosemide (Lasix Oral Solution -) 40 mg GT BID@0600,1400 [facility] Last Admin: 07/03/20 14:58 Dose: 40 mg Documented by: Insulin Aspart (Novolog Vial Sliding Scale -) 1 vial SQ Q6H [facility]; Protocol Last Admin: 07/04/20 12:09 Dose: Not Given Documented by: Labetalol HCl (Normodyne Injection -) 10 mg IVPUSH Q8H PRN PRN Reason: HYPERTENSION Lacosamide (Vimpat Liquid -) 100 mg GT BID [facility] Last Admin: 07/04/20 10:52 Dose: 100 mg Documented by: Levetiracetam (Keppra Oral Solution -) 1,250 mg GT BID [facility] Last Admin: 07/04/20 10:52 Dose: 1,250 mg Documented by: Losartan Potassium (Cozaar -) 100 mg GT DAILY [facility] Last Admin: 07/04/20 10:49 Dose: 100 mg Documented by: Metoprolol Tartrate (Lopressor -) 12.5 mg GT BID [facility] Last Admin: 07/04/20 11:48 Dose: 12.5 mg Documented by: Nystatin (Nystatin Oral Suspension -) 500,000 units PO Q6HPO [facility] Last Admin: 07/04/20 11:52 Dose: 500,000 units Documented by: Polyethylene Glycol (Miralax (For Daily Use) -) 17 gm GT DAILY [facility] Last Admin: 07/04/20 11:54 Dose: Not Given Documented by: Potassium Chloride (Potassium Chloride Oral Liquid) 40 meq GT BID [facility] Last Admin: 07/04/20 10:51 Dose: 40 meq Documented by: Valproate Sodium (Depakene -) 750 mg GT BID [facility] Last Admin: 07/04/20 10:49 Dose: 750 mg Documented by: - Objective Vital Signs: Vital Signs Temperature 99.5 F 07/04/20 05:00 Pulse Rate 88 07/04/20 08:30 Respiratory Rate 14 07/04/20 11:35 Blood Pressure 141/75 07/04/20 05:00 O2 Sat by Pulse Oximetry (%) 99 07/04/20 11:42 Constitutional: Yes: No Distress Eyes: Yes: Conjunctiva Clear Cardiovascular: Yes: Regular Rate and Rhythm, S1, S2 Respiratory: Yes: CTA Bilaterally, Mechanically Ventilated Gastrointestinal: Yes: Normal Bowel Sounds, Soft. No: Tenderness Edema: Yes Labs: CBC, BMP 07/04/20 06:45 07/04/20 06:45 INR, PTT INR 1.15 (0.83-1.09) H 06/26/20 12:55 Assessment/Plan + BC SCN X 2 BOTTLES ? 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
[2020-07-04] MEDS: BANATROL PLUS POWDER PACKET PO SCH ×2 (14:50→22:24)
--- NOTE | 2020-07-04 14:50 | PN ---
Progress Note (short form) - Note Progress Note: Vented, unresponsive. No fevers recorded. No acute events overnight. Intake & Output 07/01/20 07/02/20 07/03/20 07/04/20 23:59 23:59 23:59 23:59 Intake Total 6798 488 9534 1000 Output Total 1800 2300 1400 300 Balance -620 -1800 -280 700 Weight 176 lb 1.6 oz 176 lb 1.6 oz 184 lb 12.8 oz 183 lb 2 oz Last Vital Signs Temp Pulse Resp BP Pulse Ox 98.7 F 87 18 138/73 100 07/04/20 13:00 07/04/20 13:00 07/04/20 13:00 07/04/20 13:00 07/04/20 13:00 Active Medications Acetaminophen (Tylenol Oral Solution -) 650 mg GT Q4H PRN PRN Reason: PAIN Amino Acids (Prosource No Carb Liquid Pkt) 30 ml PEG DAILY [facility] Last Admin: 07/04/20 11:48 Dose: 30 ml Documented by: Banana Based Medical Food (Banatrol Plus Powder Packet) 1 packet PO TID [facility] Docusate Sodium (Colace Liquid -) 100 mg GT TID [facility] Last Admin: 07/04/20 05:54 Dose: Not Given Documented by: Enoxaparin Sodium (Lovenox -) 40 mg SQ DAILY [facility] Last Admin: 07/04/20 11:27 Dose: 40 mg Documented by: Famotidine (Pepcid) 20 mg PEG DAILY [facility] Last Admin: 07/04/20 11:53 Dose: 20 mg Documented by: Ferrous Sulfate (Feosol) 300 mg GT DAILY [facility] Last Admin: 07/04/20 11:50 Dose: 300 mg Documented by: Furosemide (Lasix Oral Solution -) 40 mg GT BID@0600,1400 [facility] Last Admin: 07/03/20 14:58 Dose: 40 mg Documented by: Metronidazole (Flagyl 500mg Premixed Ivpb -) 500 mg in 100 mls @ 100 mls/hr IVPB Q8H-IV [facility] Insulin Aspart (Novolog Vial Sliding Scale -) 1 vial SQ Q6H [facility]; Protocol Last Admin: 07/04/20 12:09 Dose: Not Given Documented by: Labetalol HCl (Normodyne Injection -) 10 mg IVPUSH Q8H PRN PRN Reason: HYPERTENSION Lacosamide (Vimpat Liquid -) 100 mg GT BID [facility] Last Admin: 07/04/20 10:52 Dose: 100 mg Documented by: Levetiracetam (Keppra Oral Solution -) 1,250 mg GT BID [facility] Last Admin: 07/04/20 10:52 Dose: 1,250 mg Documented by: Levofloxacin (Levaquin -) 500 mg GT DAILY@0600 [facility] Losartan Potassium (Cozaar -) 100 mg GT DAILY [facility] Last Admin: 07/04/20 10:49 Dose: 100 mg Documented by: Metoprolol Tartrate (Lopressor -) 12.5 mg GT BID [facility] Last Admin: 07/04/20 11:48 Dose: 12.5 mg Documented by: Nystatin (Nystatin Oral Suspension -) 500,000 units PO Q6HPO [facility] Last Admin: 07/04/20 11:52 Dose: 500,000 units Documented by: Polyethylene Glycol (Miralax (For Daily Use) -) 17 gm GT DAILY [facility] Last Admin: 07/04/20 11:54 Dose: Not Given Documented by: Potassium Chloride (Potassium Chloride Oral Liquid) 40 meq GT BID [facility] Last Admin: 07/04/20 10:51 Dose: 40 meq Documented by: Valproate Sodium (Depakene -) 750 mg GT BID [facility] Last Admin: 07/04/20 10:49 Dose: 750 mg Documented by: Gen: vented, NAD Heart: RRR Lung: decreased breath sounds at the bases Abd: soft, nontender Ext: + edema Laboratory Results - last 24 hr 07/03/20 07/04/20 07/04/20 17:17 01:12 06:08 WBC RBC Hgb Hct MCV MCH MCHC RDW Plt Count MPV Absolute Neuts (auto) Neutrophils % Lymphocytes % Monocytes % Eosinophils % Basophils % Nucleated RBC % Sodium Potassium Chloride Carbon Dioxide Anion Gap BUN Creatinine Est GFR (CKD-EPI)AfAm Est GFR (CKD-EPI)NonAf POC Glucometer 173 144 167 Random Glucose Calcium Total Bilirubin AST ALT Alkaline Phosphatase Total Protein Albumin 07/04/20 07/04/20 07/04/20 06:45 06:45 12:00 WBC 10.0 RBC 3.38 L Hgb 8.7 L Hct 27.7 L MCV 81.9 MCH 25.7 MCHC 31.4 L RDW 17.5 H Plt Count 627 H MPV 7.3 L Absolute Neuts (auto) 6.1 Neutrophils % 60.8 Lymphocytes % 26.6 Monocytes % 8.7 Eosinophils % 3.6 Basophils % 0.3 Nucleated RBC % 0 Sodium 143 Potassium 4.3 Chloride 103 Carbon Dioxide 33 H Anion Gap 7 L BUN 16.2 Creatinine 0.6 Est GFR (CKD-EPI)AfAm 110.06 Est GFR (CKD-EPI)NonAf 94.96 POC Glucometer 124 Random Glucose 148 H Calcium 9.3 Total Bilirubin 0.3 AST 25 ALT 45 Alkaline Phosphatase 48 Total Protein 6.7 Albumin 2.1 L A/P Chronic Respiratory Failure Status Epilepticus resolved Seizure Disorder Anoxic Encephalopathy Pneumonia Gram Positive Bacteremia COPD HTN DM Asthma Anemia - antiepileptics per neuro - continue antibiotics - O2 to keep SpO2 >90% - poor candidate for weaning given poor mental status - enteral feeds - DVT/GI prophylaxis Dr Zarate
--- NOTE | 2020-07-04 15:41 | PN ---
Progress Note, Physician History of Present Illness: Pt seen and examined at bedside. He appears comfortable. He is not very interactive. - Current Medication List Current Medications: Active Medications Acetaminophen (Tylenol Oral Solution -) 650 mg GT Q4H PRN PRN Reason: PAIN Amino Acids (Prosource No Carb Liquid Pkt) 30 ml PEG DAILY [facility] Last Admin: 07/04/20 11:48 Dose: 30 ml Documented by: Banana Based Medical Food (Banatrol Plus Powder Packet) 1 packet PO TID [facility] Last Admin: 07/04/20 14:50 Dose: 1 packet Documented by: Docusate Sodium (Colace Liquid -) 100 mg GT TID [facility] Last Admin: 07/04/20 14:50 Dose: Not Given Documented by: Enoxaparin Sodium (Lovenox -) 40 mg SQ DAILY [facility] Last Admin: 07/04/20 11:27 Dose: 40 mg Documented by: Famotidine (Pepcid) 20 mg PEG DAILY [facility] Last Admin: 07/04/20 11:53 Dose: 20 mg Documented by: Ferrous Sulfate (Feosol) 300 mg GT DAILY [facility] Last Admin: 07/04/20 11:50 Dose: 300 mg Documented by: Furosemide (Lasix Oral Solution -) 40 mg GT BID@0600,1400 [facility] Last Admin: 07/03/20 14:58 Dose: 40 mg Documented by: Metronidazole (Flagyl 500mg Premixed Ivpb -) 500 mg in 100 mls @ 100 mls/hr IVPB Q8H-IV [facility] Last Admin: 07/04/20 13:49 Dose: 100 mls/hr Documented by: Insulin Aspart (Novolog Vial Sliding Scale -) 1 vial SQ Q6H [facility]; Protocol Last Admin: 07/04/20 12:09 Dose: Not Given Documented by: Labetalol HCl (Normodyne Injection -) 10 mg IVPUSH Q8H PRN PRN Reason: HYPERTENSION Lacosamide (Vimpat Liquid -) 100 mg GT BID [facility] Last Admin: 07/04/20 10:52 Dose: 100 mg Documented by: Levetiracetam (Keppra Oral Solution -) 1,250 mg GT BID [facility] Last Admin: 07/04/20 10:52 Dose: 1,250 mg Documented by: Levofloxacin (Levaquin -) 500 mg GT DAILY@0600 [facility] Last Admin: 07/04/20 14:50 Dose: 500 mg Documented by: Losartan Potassium (Cozaar -) 100 mg GT DAILY [facility] Last Admin: 07/04/20 10:49 Dose: 100 mg Documented by: Metoprolol Tartrate (Lopressor -) 12.5 mg GT BID [facility] Last Admin: 07/04/20 11:48 Dose: 12.5 mg Documented by: Nystatin (Nystatin Oral Suspension -) 500,000 units PO Q6HPO [facility] Last Admin: 07/04/20 11:52 Dose: 500,000 units Documented by: Polyethylene Glycol (Miralax (For Daily Use) -) 17 gm GT DAILY [facility] Last Admin: 07/04/20 11:54 Dose: Not Given Documented by: Potassium Chloride (Potassium Chloride Oral Liquid) 40 meq GT BID [facility] Last Admin: 07/04/20 10:51 Dose: 40 meq Documented by: Valproate Sodium (Depakene -) 750 mg GT BID [facility] Last Admin: 07/04/20 10:49 Dose: 750 mg Documented by: - Objective Vital Signs: Vital Signs Temperature 98.7 F 07/04/20 13:00 Pulse Rate 87 07/04/20 13:00 Respiratory Rate 18 07/04/20 13:00 Blood Pressure 138/73 07/04/20 13:00 O2 Sat by Pulse Oximetry (%) 100 07/04/20 13:00 Constitutional: Yes: Calm Eyes: Yes: Conjunctiva Clear HENT: Yes: Atraumatic Cardiovascular: Yes: S1, S2 Respiratory: Yes: Mechanically Ventilated Gastrointestinal: Yes: Normal Bowel Sounds, Soft Genitourinary: Yes: Incontinence Musculoskeletal: Yes: Muscle Weakness Edema: LUE: 1+, RUE: 1+ Neurological: Yes: Lethargy Labs: CBC, BMP 07/04/20 06:45 07/04/20 06:45 INR, PTT INR 1.15 (0.83-1.09) H 06/26/20 12:55 Assessment/Plan Current Medications Generic Name Dose Route Start Last Admin Trade Name Freq PRN Reason Stop Dose Admin Acetaminophen 650 mg 06/29/20 18:18 Tylenol Oral Solution - GT Q4H PRN PAIN Amino Acids 30 ml 07/02/20 10:00 07/04/20 11:48 Prosource No Carb Liquid Pkt PEG 30 ml DAILY [facility] Administration Banana Based Medical Food 1 packet 07/04/20 14:00 07/04/20 14:50 Banatrol Plus Powder Packet PO 1 packet TID [facility] Administration Docusate Sodium 100 mg 06/29/20 22:00 07/04/20 14:50 Colace Liquid - GT Not Given TID [facility] Enoxaparin Sodium 40 mg 06/28/20 10:00 07/04/20 11:27 Lovenox - SQ 40 mg DAILY [facility] Administration Famotidine 20 mg 06/30/20 10:00 07/04/20 11:53 Pepcid PEG 20 mg DAILY [facility] Administration Ferrous Sulfate 300 mg 06/30/20 10:00 07/04/20 11:50 Feosol GT 300 mg DAILY [facility] Administration Furosemide 40 mg 07/03/20 14:00 07/03/20 14:58 Lasix Oral Solution - GT 40 mg BID@0600,1400 [facility] Administration Metronidazole 500 mg in 100 mls @ 100 mls/hr 07/04/20 13:45 07/04/20 13:49 Flagyl 500mg Premixed Ivpb - IVPB 100 mls/hr Q8H-IV [facility] Administration Insulin Aspart 1 vial 06/29/20 18:31 07/04/20 12:09 Novolog Vial Sliding Scale - SQ Not Given Q6H [facility] Protocol Labetalol HCl 10 mg 06/28/20 13:47 Normodyne Injection - IVPUSH Q8H PRN HYPERTENSION Lacosamide 100 mg 07/03/20 11:30 07/04/20 10:52 Vimpat Liquid - GT 100 mg BID [facility] Administration Levetiracetam 1,250 mg 07/03/20 11:30 07/04/20 10:52 Keppra Oral Solution - GT 1,250 mg BID [facility] Administration Levofloxacin 500 mg 07/04/20 13:45 07/04/20 14:50 Levaquin - GT 500 mg DAILY@0600 [facility] Administration Losartan Potassium 100 mg 06/30/20 10:00 07/04/20 10:49 Cozaar - GT 100 mg DAILY [facility] Administration Metoprolol Tartrate 12.5 mg 06/29/20 22:00 07/04/20 11:48 Lopressor - GT 12.5 mg BID [facility] Administration Nystatin 500,000 units 07/02/20 18:00 07/04/20 11:52 Nystatin Oral Suspension - PO 500,000 units Q6HPO [facility] Administration Polyethylene Glycol 17 gm 06/30/20 10:00 07/04/20 11:54 Miralax (For Daily Use) - GT Not Given DAILY [facility] Potassium Chloride 40 meq 07/01/20 14:17 07/04/20 10:51 Potassium Chloride Oral Liquid GT 40 meq BID [facility] Administration Valproate Sodium 750 mg 07/03/20 11:30 07/04/20 10:49 Depakene - GT 750 mg BID [facility] Administration Impression 1. hypokalemia 2. fluid overload 3. epilepsy with status 4. htn 5. dm 6. asthma 7. anemia 8. Anoxic Encephalopathy 9. PNA Plan - cont diuretics - monitor potassium - monitor lytes - vents support - check mag
[2020-07-04] MEDS: LATANOPROST 0.005% OPHTH SOLN 2.5ML BOTTLE OU SCH (22:28)
[2020-07-05] MEDS: BANATROL PLUS POWDER PACKET PO SCH ×3 (05:25→22:19)
[2020-07-05] MEDS: DOCUSATE NA 100 MG/10 ML UNIT-DOSE CUPS GT SCH ×3 (05:26→22:23)
[2020-07-05] MEDS: NYSTATIN 500,000 UNITS/5 ML SUSPENSION PO SCH ×4 (05:27→23:18)
[2020-07-05] MEDS: FUROSEMIDE 40 MG/5 ML UNIT-DOSE CUP GT SCH ×2 (05:42→15:03)
[2020-07-05] MEDS: INSULIN SLIDING SCALE (NOVOLOG) 1 VIAL SQ SCH ×3 (05:43→18:09)
[2020-07-05] MEDS ORDERED: PT OWN MED DRAWER 7, Y5N ONE ×2 (09:55→14:37)
[2020-07-05] MEDS: VALPROATE SODIUM 250 MG/5 ML UNIT DOSE CUP GT SCH ×2 (09:58→22:20)
[2020-07-05] MEDS: POTASSIUM CHLORIDE ORAL LIQUID 20 MEQ/15 ML GT SCH ×2 (09:58→22:23)
[2020-07-05] MEDS: Lacosamide 50 MG/5 ML ORAL SOLUTION UNIT CUPS GT SCH ×2 (09:59→22:22)
[2020-07-05] MEDS: levETIRAcetam 500 MG/5 ML ORAL SOLUTION (UNIT-DOSE CUPS) GT SCH ×2 (09:59→22:20)
[2020-07-05] MEDS: METOPROLOL TARTRATE 25 MG TABLET (FP) GT SCH ×2 (10:00→22:19)
[2020-07-05] MEDS: LOSARTAN POTASSIUM 50 MG TABLET (FP) GT SCH (10:00)
[2020-07-05] MEDS: POLYETHYLENE GLYCOL 3350 119 GM BTL GT SCH (10:01)
[2020-07-05] MEDS: FERROUS SO4 300 MG/5 ML ORAL SOLN UNIT DOSE CUPS GT SCH (10:01)
[2020-07-05] MEDS: ENOXAPARIN NA (PORCINE) 40 MG/0.4 ML DISP.SYRIN SQ SCH (10:01)
[2020-07-05] MEDS: FAMOTIDINE 40 MG/5 ML ORAL SUSPENSION PEG SCH (10:02)
[2020-07-05] MEDS: AMINO ACIDS/PROTEIN HYDROLYS 30 ML LIQUID.PKT PEG SCH (10:02)
--- NOTE | 2020-07-05 10:44 | PN ---
Progress Note, Physician Chief Complaint: Status epilepticus UTI Anemia History of Present Illness: NAD, on mech vent Generalized edema - Current Medication List Current Medications: Active Medications Acetaminophen (Tylenol Oral Solution -) 650 mg GT Q4H PRN PRN Reason: PAIN Amino Acids (Prosource No Carb Liquid Pkt) 30 ml PEG DAILY [facility] Last Admin: 07/05/20 10:02 Dose: 30 ml Documented by: Banana Based Medical Food (Banatrol Plus Powder Packet) 1 packet PO TID [facility] Last Admin: 07/05/20 05:25 Dose: 1 packet Documented by: Docusate Sodium (Colace Liquid -) 100 mg GT TID [facility] Last Admin: 07/05/20 05:26 Dose: Not Given Documented by: Enoxaparin Sodium (Lovenox -) 40 mg SQ DAILY [facility] Last Admin: 07/05/20 10:01 Dose: 40 mg Documented by: Famotidine (Pepcid) 20 mg PEG DAILY [facility] Last Admin: 07/05/20 10:02 Dose: 20 mg Documented by: Ferrous Sulfate (Feosol) 300 mg GT DAILY [facility] Last Admin: 07/05/20 10:01 Dose: 300 mg Documented by: Furosemide (Lasix Oral Solution -) 40 mg GT BID@0600,1400 [facility] Last Admin: 07/05/20 05:42 Dose: 40 mg Documented by: Metronidazole (Flagyl 500mg Premixed Ivpb -) 500 mg in 100 mls @ 100 mls/hr IVPB Q8H-IV [facility] Last Admin: 07/05/20 10:00 Dose: 100 mls/hr Documented by: Insulin Aspart (Novolog Vial Sliding Scale -) 1 vial SQ Q6H [facility]; Protocol Last Admin: 07/05/20 05:43 Dose: Not Given Documented by: Labetalol HCl (Normodyne Injection -) 10 mg IVPUSH Q8H PRN PRN Reason: HYPERTENSION Lacosamide (Vimpat Liquid -) 100 mg GT BID [facility] Last Admin: 07/05/20 09:59 Dose: 100 mg Documented by: Latanoprost (Xalatan 0.005% Eye Drops -) 1 drop OU HS [facility] Last Admin: 07/04/20 22:28 Dose: 1 drop Documented by: Levetiracetam (Keppra Oral Solution -) 1,250 mg GT BID [facility] Last Admin: 07/05/20 09:59 Dose: 1,250 mg Documented by: Levofloxacin (Levaquin -) 500 mg GT DAILY@0600 [facility] Last Admin: 07/05/20 05:26 Dose: 500 mg Documented by: Losartan Potassium (Cozaar -) 100 mg GT DAILY [facility] Last Admin: 07/05/20 10:00 Dose: 100 mg Documented by: Metoprolol Tartrate (Lopressor -) 12.5 mg GT BID [facility] Last Admin: 07/05/20 10:00 Dose: 12.5 mg Documented by: Nystatin (Nystatin Oral Suspension -) 500,000 units PO Q6HPO [facility] Last Admin: 07/05/20 05:27 Dose: 500,000 units Documented by: Polyethylene Glycol (Miralax (For Daily Use) -) 17 gm GT DAILY [facility] Last Admin: 07/05/20 10:01 Dose: Not Given Documented by: Potassium Chloride (Potassium Chloride Oral Liquid) 40 meq GT BID [facility] Last Admin: 07/05/20 09:58 Dose: 40 meq Documented by: Valproate Sodium (Depakene -) 750 mg GT BID [facility] Last Admin: 07/05/20 09:58 Dose: 750 mg Documented by: - Objective Vital Signs: Vital Signs Temperature 98.5 F 07/05/20 10:00 Pulse Rate 83 07/05/20 10:00 Respiratory Rate 17 07/05/20 10:00 Blood Pressure 130/60 07/05/20 10:00 O2 Sat by Pulse Oximetry (%) 100 07/05/20 10:00 Constitutional: Yes: Well Nourished, No Distress, Calm Cardiovascular: Yes: Regular Rate and Rhythm Respiratory: Yes: Regular, Mechanically Ventilated, Rhonchi (diffuse) Gastrointestinal: Yes: Normal Bowel Sounds, Soft, Abdomen, Obese Genitourinary: Yes: Neely Present Musculoskeletal: Yes: Muscle Weakness Extremities: Yes: Other (generalized atrophy) Edema: Yes (generalized) Peripheral Pulses WNL: Yes Neurological: Yes: Pre-Existing Deficit Labs: CBC, BMP 07/04/20 06:45 07/04/20 06:45 INR, PTT INR 1.15 (0.83-1.09) H 06/26/20 12:55 Problem List - Problems (1) Bacteremia Assessment/Plan: -First BC growing Staph-contaminant? -Repeat BC preliminary negative -D/C IV Vanco+ Zosyn and monitor -ID on board -Afebrile Problems reviewed: Yes Code(s): R78.81 - BACTEREMIA (2) Chronic indwelling Neely catheter Assessment/Plan: -maintain neely Problems reviewed: Yes Code(s): Z97.8 - PRESENCE OF OTHER SPECIFIED DEVICES (3) Edema Assessment/Plan: -Continue Furosemide 40 mg GT BID Problems reviewed: Yes Code(s): R60.9 - EDEMA, UNSPECIFIED Qualifiers: Edema type: unspecified Qualified Code(s): R60.9 - Edema, unspecified (4) Status epilepticus Assessment/Plan: -Seen by Neurology and Neurosurgery -Continue depakote and Vimpat -Ativan PRN Problems reviewed: Yes Code(s): G40.901 - EPILEPSY, UNSP, NOT INTRACTABLE, WITH STATUS EPILEPTICUS (5) UTI (urinary tract infection) Assessment/Plan: -UC:negative -Finished IV abx Problems reviewed: Yes Code(s): N39.0 - URINARY TRACT INFECTION, SITE NOT SPECIFIED (6) Pseudomonas aeruginosa infection Assessment/Plan: -SC:Pseudomonas -Start on Levaquin and flagyl (for diarrhea) Problems reviewed: Yes Code(s): A49.8 - OTHER BACTERIAL INFECTIONS OF UNSPECIFIED SITE Assessment/Plan See problem list COVID 19 PCR pending
--- NOTE | 2020-07-05 11:10 | PN ---
Progress Note, Physician History of Present Illness: Pt seen and examined at bedside. He remains lethargic. - Current Medication List Current Medications: Active Medications Acetaminophen (Tylenol Oral Solution -) 650 mg GT Q4H PRN PRN Reason: PAIN Amino Acids (Prosource No Carb Liquid Pkt) 30 ml PEG DAILY [facility] Last Admin: 07/05/20 10:02 Dose: 30 ml Documented by: Banana Based Medical Food (Banatrol Plus Powder Packet) 1 packet PO TID [facility] Last Admin: 07/05/20 05:25 Dose: 1 packet Documented by: Docusate Sodium (Colace Liquid -) 100 mg GT TID [facility] Last Admin: 07/05/20 05:26 Dose: Not Given Documented by: Enoxaparin Sodium (Lovenox -) 40 mg SQ DAILY [facility] Last Admin: 07/05/20 10:01 Dose: 40 mg Documented by: Famotidine (Pepcid) 20 mg PEG DAILY [facility] Last Admin: 07/05/20 10:02 Dose: 20 mg Documented by: Ferrous Sulfate (Feosol) 300 mg GT DAILY [facility] Last Admin: 07/05/20 10:01 Dose: 300 mg Documented by: Furosemide (Lasix Oral Solution -) 40 mg GT BID@0600,1400 [facility] Last Admin: 07/05/20 05:42 Dose: 40 mg Documented by: Metronidazole (Flagyl 500mg Premixed Ivpb -) 500 mg in 100 mls @ 100 mls/hr IVPB Q8H-IV [facility] Last Admin: 07/05/20 10:00 Dose: 100 mls/hr Documented by: Insulin Aspart (Novolog Vial Sliding Scale -) 1 vial SQ Q6H [facility]; Protocol Last Admin: 07/05/20 05:43 Dose: Not Given Documented by: Labetalol HCl (Normodyne Injection -) 10 mg IVPUSH Q8H PRN PRN Reason: HYPERTENSION Lacosamide (Vimpat Liquid -) 100 mg GT BID [facility] Last Admin: 07/05/20 09:59 Dose: 100 mg Documented by: Latanoprost (Xalatan 0.005% Eye Drops -) 1 drop OU HS [facility] Last Admin: 07/04/20 22:28 Dose: 1 drop Documented by: Levetiracetam (Keppra Oral Solution -) 1,250 mg GT BID [facility] Last Admin: 07/05/20 09:59 Dose: 1,250 mg Documented by: Levofloxacin (Levaquin -) 500 mg GT DAILY@0600 [facility] Last Admin: 07/05/20 05:26 Dose: 500 mg Documented by: Losartan Potassium (Cozaar -) 100 mg GT DAILY [facility] Last Admin: 07/05/20 10:00 Dose: 100 mg Documented by: Metoprolol Tartrate (Lopressor -) 12.5 mg GT BID [facility] Last Admin: 07/05/20 10:00 Dose: 12.5 mg Documented by: Nystatin (Nystatin Oral Suspension -) 500,000 units PO Q6HPO [facility] Last Admin: 07/05/20 05:27 Dose: 500,000 units Documented by: Polyethylene Glycol (Miralax (For Daily Use) -) 17 gm GT DAILY [facility] Last Admin: 07/05/20 10:01 Dose: Not Given Documented by: Potassium Chloride (Potassium Chloride Oral Liquid) 40 meq GT BID [facility] Last Admin: 07/05/20 09:58 Dose: 40 meq Documented by: Valproate Sodium (Depakene -) 750 mg GT BID [facility] Last Admin: 07/05/20 09:58 Dose: 750 mg Documented by: - Objective Vital Signs: Vital Signs Temperature 98.5 F 07/05/20 10:00 Pulse Rate 83 07/05/20 10:00 Respiratory Rate 17 07/05/20 10:00 Blood Pressure 130/60 07/05/20 10:00 O2 Sat by Pulse Oximetry (%) 100 07/05/20 10:00 Constitutional: Yes: Calm Eyes: Yes: Conjunctiva Clear HENT: Yes: Atraumatic Neck: Yes: Other (trache) Cardiovascular: Yes: S1, S2 Respiratory: Yes: Mechanically Ventilated Gastrointestinal: Yes: Soft Genitourinary: Yes: Incontinence Musculoskeletal: Yes: Muscle Weakness Edema: Yes Edema: LUE: 1+, RUE: 1+, LLE: 1+, RLE: 1+ Neurological: Yes: Lethargy Labs: CBC, BMP 07/04/20 06:45 07/04/20 06:45 INR, PTT INR 1.15 (0.83-1.09) H 06/26/20 12:55 Assessment/Plan Current Medications Generic Name Dose Route Start Last Admin Trade Name Freq PRN Reason Stop Dose Admin Acetaminophen 650 mg 06/29/20 18:18 Tylenol Oral Solution - GT Q4H PRN PAIN Amino Acids 30 ml 07/02/20 10:00 07/05/20 10:02 Prosource No Carb Liquid Pkt PEG 30 ml DAILY [facility] Administration Banana Based Medical Food 1 packet 07/04/20 14:00 07/05/20 05:25 Banatrol Plus Powder Packet PO 1 packet TID [facility] Administration Docusate Sodium 100 mg 06/29/20 22:00 07/05/20 05:26 Colace Liquid - GT Not Given TID [facility] Enoxaparin Sodium 40 mg 06/28/20 10:00 07/05/20 10:01 Lovenox - SQ 40 mg DAILY [facility] Administration Famotidine 20 mg 06/30/20 10:00 07/05/20 10:02 Pepcid PEG 20 mg DAILY [facility] Administration Ferrous Sulfate 300 mg 06/30/20 10:00 07/05/20 10:01 Feosol GT 300 mg DAILY [facility] Administration Furosemide 40 mg 07/03/20 14:00 07/05/20 05:42 Lasix Oral Solution - GT 40 mg BID@0600,1400 [facility] Administration Metronidazole 500 mg in 100 mls @ 100 mls/hr 07/04/20 13:45 07/05/20 10:00 Flagyl 500mg Premixed Ivpb - IVPB 100 mls/hr Q8H-IV [facility] Administration Insulin Aspart 1 vial 06/29/20 18:31 07/05/20 05:43 Novolog Vial Sliding Scale - SQ Not Given Q6H [facility] Protocol Labetalol HCl 10 mg 06/28/20 13:47 Normodyne Injection - IVPUSH Q8H PRN HYPERTENSION Lacosamide 100 mg 07/03/20 11:30 07/05/20 09:59 Vimpat Liquid - GT 100 mg BID [facility] Administration Latanoprost 1 drop 07/04/20 22:00 07/04/20 22:28 Xalatan 0.005% Eye Drops - OU 1 drop HS [facility] Administration Levetiracetam 1,250 mg 07/03/20 11:30 07/05/20 09:59 Keppra Oral Solution - GT 1,250 mg BID [facility] Administration Levofloxacin 500 mg 07/04/20 13:45 07/05/20 05:26 Levaquin - GT 500 mg DAILY@0600 [facility] Administration Losartan Potassium 100 mg 06/30/20 10:00 07/05/20 10:00 Cozaar - GT 100 mg DAILY [facility] Administration Metoprolol Tartrate 12.5 mg 06/29/20 22:00 07/05/20 10:00 Lopressor - GT 12.5 mg BID [facility] Administration Nystatin 500,000 units 07/02/20 18:00 07/05/20 05:27 Nystatin Oral Suspension - PO 500,000 units Q6HPO [facility] Administration Polyethylene Glycol 17 gm 06/30/20 10:00 07/05/20 10:01 Miralax (For Daily Use) - GT Not Given DAILY [facility] Potassium Chloride 40 meq 07/01/20 14:17 07/05/20 09:58 Potassium Chloride Oral Liquid GT 40 meq BID [facility] Administration Valproate Sodium 750 mg 07/03/20 11:30 07/05/20 09:58 Depakene - GT 750 mg BID [facility] Administration Impression 1. hypokalemia 2. fluid overload 3. epilepsy with status 4. htn 5. dm 6. asthma 7. anemia 8. Anoxic Encephalopathy 9. PNA Plan - monitor lytes - monitor potassium - cont to monitor volume status, improved - monitor lytes - vent support - check mag
--- NOTE | 2020-07-05 12:51 | PN ---
Progress Note (short form) - Note Progress Note: Vented, eyes are open. NAD No fevers recorded. No acute events overnight. Intake & Output 07/02/20 07/03/20 07/04/20 07/05/20 23:59 23:59 23:59 23:59 Intake Total 500 1120 2000 870 Output Total 2300 1400 1750 500 Balance -1800 -280 250 370 Weight 176 lb 1.6 oz 184 lb 12.8 oz 183 lb 2 oz 180 lb 11.2 oz Last Vital Signs Temp Pulse Resp BP Pulse Ox 98.5 F 83 18 130/60 100 07/05/20 10:00 07/05/20 10:00 07/05/20 12:15 07/05/20 10:00 07/05/20 12:15 Active Medications Acetaminophen (Tylenol Oral Solution -) 650 mg GT Q4H PRN PRN Reason: PAIN Amino Acids (Prosource No Carb Liquid Pkt) 30 ml PEG DAILY [facility] Last Admin: 07/05/20 10:02 Dose: 30 ml Documented by: Banana Based Medical Food (Banatrol Plus Powder Packet) 1 packet PO TID [facility] Last Admin: 07/05/20 05:25 Dose: 1 packet Documented by: Docusate Sodium (Colace Liquid -) 100 mg GT TID [facility] Last Admin: 07/05/20 05:26 Dose: Not Given Documented by: Enoxaparin Sodium (Lovenox -) 40 mg SQ DAILY [facility] Last Admin: 07/05/20 10:01 Dose: 40 mg Documented by: Famotidine (Pepcid) 20 mg PEG DAILY [facility] Last Admin: 07/05/20 10:02 Dose: 20 mg Documented by: Ferrous Sulfate (Feosol) 300 mg GT DAILY [facility] Last Admin: 07/05/20 10:01 Dose: 300 mg Documented by: Furosemide (Lasix Oral Solution -) 40 mg GT BID@0600,1400 [facility] Last Admin: 07/05/20 05:42 Dose: 40 mg Documented by: Metronidazole (Flagyl 500mg Premixed Ivpb -) 500 mg in 100 mls @ 100 mls/hr IVPB Q8H-IV [facility] Last Admin: 07/05/20 10:00 Dose: 100 mls/hr Documented by: Insulin Aspart (Novolog Vial Sliding Scale -) 1 vial SQ Q6H [facility]; Protocol Last Admin: 07/05/20 05:43 Dose: Not Given Documented by: Labetalol HCl (Normodyne Injection -) 10 mg IVPUSH Q8H PRN PRN Reason: HYPERTENSION Lacosamide (Vimpat Liquid -) 100 mg GT BID [facility] Last Admin: 07/05/20 09:59 Dose: 100 mg Documented by: Latanoprost (Xalatan 0.005% Eye Drops -) 1 drop OU HS [facility] Last Admin: 07/04/20 22:28 Dose: 1 drop Documented by: Levetiracetam (Keppra Oral Solution -) 1,250 mg GT BID [facility] Last Admin: 07/05/20 09:59 Dose: 1,250 mg Documented by: Levofloxacin (Levaquin -) 500 mg GT DAILY@0600 [facility] Last Admin: 07/05/20 05:26 Dose: 500 mg Documented by: Losartan Potassium (Cozaar -) 100 mg GT DAILY [facility] Last Admin: 07/05/20 10:00 Dose: 100 mg Documented by: Metoprolol Tartrate (Lopressor -) 12.5 mg GT BID [facility] Last Admin: 07/05/20 10:00 Dose: 12.5 mg Documented by: Nystatin (Nystatin Oral Suspension -) 500,000 units PO Q6HPO [facility] Last Admin: 07/05/20 05:27 Dose: 500,000 units Documented by: Polyethylene Glycol (Miralax (For Daily Use) -) 17 gm GT DAILY [facility] Last Admin: 07/05/20 10:01 Dose: Not Given Documented by: Potassium Chloride (Potassium Chloride Oral Liquid) 40 meq GT BID [facility] Last Admin: 07/05/20 09:58 Dose: 40 meq Documented by: Valproate Sodium (Depakene -) 750 mg GT BID [facility] Last Admin: 07/05/20 09:58 Dose: 750 mg Documented by: Gen: vented, NAD Heart: RRR Lung: decreased breath sounds at the bases Abd: soft, nontender Ext: + edema Laboratory Results - last 24 hr 07/01/20 07/04/20 07/04/20 07:40 15:00 17:43 POC Glucometer 125 Lacosamide Level 6.7 COVID-19 ([facility]) Not detected 07/04/20 07/05/20 07/05/20 22:20 05:30 12:25 POC Glucometer 132 111 140 Lacosamide Level COVID-19 ([facility]) A/P Chronic Respiratory Failure Status Epilepticus resolved Seizure Disorder Anoxic Encephalopathy Pneumonia Gram Positive Bacteremia COPD HTN DM Asthma Anemia - antiepileptics per neuro - continue antibiotics - O2 to keep SpO2 >90% - poor candidate for weaning given poor mental status - enteral feeds - DVT/GI prophylaxis - DC planning Dr Zarate
[2020-07-05 14:38] VITALS: BMI 24.4
[2020-07-05] MEDS: LATANOPROST 0.005% OPHTH SOLN 2.5ML BOTTLE OU SCH (22:23)
[2020-07-06] MEDS: INSULIN SLIDING SCALE (NOVOLOG) 1 VIAL SQ SCH ×3 (00:25→13:39)
[2020-07-06] MEDS: FUROSEMIDE 40 MG/5 ML UNIT-DOSE CUP GT SCH ×2 (05:23→13:22)
[2020-07-06] MEDS: NYSTATIN 500,000 UNITS/5 ML SUSPENSION PO SCH ×2 (05:23→13:20)
[2020-07-06] MEDS: BANATROL PLUS POWDER PACKET PO SCH ×2 (05:23→13:23)
[2020-07-06] MEDS: DOCUSATE NA 100 MG/10 ML UNIT-DOSE CUPS GT SCH ×2 (05:24→14:11)
--- NOTE | 2020-07-06 10:40 | PN ---
Progress Note, Physician Chief Complaint: Status epilepticus UTI Anemia History of Present Illness: NAD, on mech vent Generalized edema - Current Medication List Current Medications: Active Medications Acetaminophen (Tylenol Oral Solution -) 650 mg GT Q4H PRN PRN Reason: PAIN Amino Acids (Prosource No Carb Liquid Pkt) 30 ml PEG DAILY [facility] Last Admin: 07/05/20 10:02 Dose: 30 ml Documented by: Banana Based Medical Food (Banatrol Plus Powder Packet) 1 packet PO TID [facility] Last Admin: 07/06/20 05:23 Dose: 1 packet Documented by: Docusate Sodium (Colace Liquid -) 100 mg GT TID [facility] Last Admin: 07/06/20 05:24 Dose: Not Given Documented by: Enoxaparin Sodium (Lovenox -) 40 mg SQ DAILY [facility] Last Admin: 07/05/20 10:01 Dose: 40 mg Documented by: Famotidine (Pepcid) 20 mg PEG DAILY [facility] Last Admin: 07/05/20 10:02 Dose: 20 mg Documented by: Ferrous Sulfate (Feosol) 300 mg GT DAILY [facility] Last Admin: 07/05/20 10:01 Dose: 300 mg Documented by: Furosemide (Lasix Oral Solution -) 40 mg GT BID@0600,1400 [facility] Last Admin: 07/06/20 05:23 Dose: 40 mg Documented by: Metronidazole (Flagyl 500mg Premixed Ivpb -) 500 mg in 100 mls @ 100 mls/hr IVPB Q8H-IV [facility] Last Admin: 07/06/20 01:06 Dose: 100 mls/hr Documented by: Insulin Aspart (Novolog Vial Sliding Scale -) 1 vial SQ Q6H [facility]; Protocol Last Admin: 07/06/20 05:38 Dose: Not Given Documented by: Labetalol HCl (Normodyne Injection -) 10 mg IVPUSH Q8H PRN PRN Reason: HYPERTENSION Lacosamide (Vimpat Liquid -) 100 mg GT BID [facility] Last Admin: 07/05/20 22:22 Dose: 100 mg Documented by: Latanoprost (Xalatan 0.005% Eye Drops -) 1 drop OU HS [facility] Last Admin: 07/05/20 22:23 Dose: 1 drop Documented by: Levetiracetam (Keppra Oral Solution -) 1,250 mg GT BID [facility] Last Admin: 07/05/20 22:20 Dose: 1,250 mg Documented by: Levofloxacin (Levaquin -) 500 mg GT DAILY@0600 [facility] Last Admin: 07/06/20 05:22 Dose: 500 mg Documented by: Losartan Potassium (Cozaar -) 100 mg GT DAILY [facility] Last Admin: 07/05/20 10:00 Dose: 100 mg Documented by: Metoprolol Tartrate (Lopressor -) 12.5 mg GT BID [facility] Last Admin: 07/05/20 22:19 Dose: 12.5 mg Documented by: Nystatin (Nystatin Oral Suspension -) 500,000 units PO Q6HPO [facility] Last Admin: 07/06/20 05:23 Dose: 500,000 units Documented by: Polyethylene Glycol (Miralax (For Daily Use) -) 17 gm GT DAILY [facility] Last Admin: 07/05/20 10:01 Dose: Not Given Documented by: Potassium Chloride (Potassium Chloride Oral Liquid) 40 meq GT BID [facility] Last Admin: 07/05/20 22:23 Dose: 40 meq Documented by: Valproate Sodium (Depakene -) 750 mg GT BID [facility] Last Admin: 07/05/20 22:20 Dose: 750 mg Documented by: - Objective Vital Signs: Vital Signs Temperature 97.4 F L 07/06/20 06:00 Pulse Rate 89 07/06/20 06:00 Respiratory Rate 18 07/06/20 06:00 Blood Pressure 142/78 07/06/20 06:00 O2 Sat by Pulse Oximetry (%) 100 07/06/20 06:00 Constitutional: Yes: Well Nourished, No Distress, Calm Cardiovascular: Yes: Regular Rate and Rhythm Respiratory: Yes: Mechanically Ventilated, Rhonchi (diffuse) Gastrointestinal: Yes: Normal Bowel Sounds, Soft ...Rectal Exam: Yes: Other (diarrhea- rectal tube) Musculoskeletal: Yes: WNL Extremities: Yes: Other (Generalized atrophy) Edema: Yes (generalized) Peripheral Pulses WNL: Yes Neurological: Yes: Pre-Existing Deficit, Other (obtunded) Labs: CBC, BMP 07/04/20 06:45 07/04/20 06:45 INR, PTT INR 1.15 (0.83-1.09) H 06/26/20 12:55 Problem List - Problems (1) Bacteremia Assessment/Plan: -First BC growing Staph-contaminant? -Repeat BC negative -D/C IV Vanco+ Zosyn and monitor -ID on board -Afebrile Problems reviewed: Yes Code(s): R78.81 - BACTEREMIA (2) Chronic indwelling Neely catheter Assessment/Plan: -maintain neely Problems reviewed: Yes Code(s): Z97.8 - PRESENCE OF OTHER SPECIFIED DEVICES (3) Edema Assessment/Plan: -Continue Furosemide 40 mg GT BID Problems reviewed: Yes Code(s): R60.9 - EDEMA, UNSPECIFIED Qualifiers: Edema type: unspecified Qualified Code(s): R60.9 - Edema, unspecified (4) Status epilepticus Assessment/Plan: -Seen by Neurology and Neurosurgery -Continue depakote and Vimpat Problems reviewed: Yes Code(s): G40.901 - EPILEPSY, UNSP, NOT INTRACTABLE, WITH STATUS EPILEPTICUS (5) UTI (urinary tract infection) Assessment/Plan: -UC:negative -Finished IV abx Problems reviewed: Yes Code(s): N39.0 - URINARY TRACT INFECTION, SITE NOT SPECIFIED (6) Pseudomonas aeruginosa infection Assessment/Plan: -SC:Pseudomonas -Started on Levaquin and flagyl (for diarrhea) Problems reviewed: Yes Code(s): A49.8 - OTHER BACTERIAL INFECTIONS OF UNSPECIFIED SITE (7) Diarrhea Assessment/Plan: -Cdiff PCR pending -Started on Flagyl and levaquin Problems reviewed: Yes Code(s): R19.7 - DIARRHEA, UNSPECIFIED Assessment/Plan See problem list
[2020-07-06] MEDS ORDERED: PT OWN MED DRAWER 7, Y5N ONE ×2 (10:42→13:22)
[2020-07-06] MEDS: FAMOTIDINE 40 MG/5 ML ORAL SUSPENSION PEG SCH (10:55)
[2020-07-06] MEDS: AMINO ACIDS/PROTEIN HYDROLYS 30 ML LIQUID.PKT PEG SCH (10:55)
[2020-07-06] MEDS: LOSARTAN POTASSIUM 50 MG TABLET (FP) GT SCH (10:55)
[2020-07-06] MEDS: Lacosamide 50 MG/5 ML ORAL SOLUTION UNIT CUPS GT SCH (10:55)
[2020-07-06] MEDS: FERROUS SO4 300 MG/5 ML ORAL SOLN UNIT DOSE CUPS GT SCH (10:55)
[2020-07-06] MEDS: levETIRAcetam 500 MG/5 ML ORAL SOLUTION (UNIT-DOSE CUPS) GT SCH (10:55)
[2020-07-06] MEDS: POTASSIUM CHLORIDE ORAL LIQUID 20 MEQ/15 ML GT SCH (10:55)
[2020-07-06] MEDS: VALPROATE SODIUM 250 MG/5 ML UNIT DOSE CUP GT SCH (10:55)
[2020-07-06] MEDS: ENOXAPARIN NA (PORCINE) 40 MG/0.4 ML DISP.SYRIN SQ SCH (10:55)
[2020-07-06] MEDS: METOPROLOL TARTRATE 25 MG TABLET (FP) GT SCH (11:00)
[2020-07-06] MEDS: POLYETHYLENE GLYCOL 3350 119 GM BTL GT SCH (11:03)
--- NOTE | 2020-07-06 12:55 | PN ---
Progress Note, Physician History of Present Illness: pulmonary poorly responsive on vent support ac mode,-resp distress - Current Medication List Current Medications: Active Medications Acetaminophen (Tylenol Oral Solution -) 650 mg GT Q4H PRN PRN Reason: PAIN Amino Acids (Prosource No Carb Liquid Pkt) 30 ml PEG DAILY [facility] Last Admin: 07/06/20 10:55 Dose: 30 ml Documented by: Banana Based Medical Food (Banatrol Plus Powder Packet) 1 packet PO TID [facility] Last Admin: 07/06/20 05:23 Dose: 1 packet Documented by: Docusate Sodium (Colace Liquid -) 100 mg GT TID [facility] Last Admin: 07/06/20 05:24 Dose: Not Given Documented by: Enoxaparin Sodium (Lovenox -) 40 mg SQ DAILY [facility] Last Admin: 07/06/20 10:55 Dose: 40 mg Documented by: Famotidine (Pepcid) 20 mg PEG DAILY [facility] Last Admin: 07/06/20 10:55 Dose: 20 mg Documented by: Ferrous Sulfate (Feosol) 300 mg GT DAILY [facility] Last Admin: 07/06/20 10:55 Dose: 300 mg Documented by: Furosemide (Lasix Oral Solution -) 40 mg GT BID@0600,1400 [facility] Last Admin: 07/06/20 05:23 Dose: 40 mg Documented by: Insulin Aspart (Novolog Vial Sliding Scale -) 1 vial SQ Q6H [facility]; Protocol Last Admin: 07/06/20 05:38 Dose: Not Given Documented by: Labetalol HCl (Normodyne Injection -) 10 mg IVPUSH Q8H PRN PRN Reason: HYPERTENSION Lacosamide (Vimpat Liquid -) 100 mg GT BID [facility] Last Admin: 07/06/20 10:55 Dose: 100 mg Documented by: Latanoprost (Xalatan 0.005% Eye Drops -) 1 drop OU HS [facility] Last Admin: 07/05/20 22:23 Dose: 1 drop Documented by: Levetiracetam (Keppra Oral Solution -) 1,250 mg GT BID [facility] Last Admin: 07/06/20 10:55 Dose: 1,250 mg Documented by: Levofloxacin (Levaquin -) 500 mg GT DAILY@0600 [facility] Last Admin: 07/06/20 05:22 Dose: 500 mg Documented by: Losartan Potassium (Cozaar -) 100 mg GT DAILY [facility] Last Admin: 07/06/20 10:55 Dose: 100 mg Documented by: Metoprolol Tartrate (Lopressor -) 12.5 mg GT BID [facility] Last Admin: 07/06/20 11:00 Dose: 12.5 mg Documented by: Metronidazole (Flagyl -) 500 mg PO TID [facility] Nystatin (Nystatin Oral Suspension -) 500,000 units PO Q6HPO [facility] Last Admin: 07/06/20 05:23 Dose: 500,000 units Documented by: Polyethylene Glycol (Miralax (For Daily Use) -) 17 gm GT DAILY [facility] Last Admin: 07/06/20 11:03 Dose: Not Given Documented by: Potassium Chloride (Potassium Chloride Oral Liquid) 40 meq GT BID [facility] Last Admin: 07/06/20 10:55 Dose: 40 meq Documented by: Valproate Sodium (Depakene -) 750 mg GT BID [facility] Last Admin: 07/06/20 10:55 Dose: 750 mg Documented by: - Objective Vital Signs: Vital Signs Temperature 97.4 F L 07/06/20 06:00 Pulse Rate 89 07/06/20 06:00 Respiratory Rate 13 07/06/20 09:30 Blood Pressure 142/78 07/06/20 06:00 O2 Sat by Pulse Oximetry (%) 100 07/06/20 09:30 Constitutional: Yes: Well Nourished, Other (poorly responsive) Eyes: Yes: WNL HENT: Yes: WNL Neck: Yes: WNL Cardiovascular: Yes: Regular Rate and Rhythm, S1, S2 Respiratory: Yes: Diminished Gastrointestinal: Yes: Normal Bowel Sounds, Soft Extremities: Yes: WNL Edema: No Labs: CBC, BMP Assessment/Plan A/P Status Epilepticus resolved Seizure Disorder Anoxic Encephalopathy Pneumonia Gram Positive Bacteremia COPD HTN DM Asthma Anemia - antiepileptics per neuro - antibiotics completed - O2 to keep SpO2 >90% - poor candidate for weaning given poor mental status - enteral feeds - DVT/GI prophylaxis - prognosis poor DR CRAWFORD
--- NOTE | 2020-07-06 13:06 | PN ---
Progress Note, Physician History of Present Illness: Pt seen and examined at bedside. He remains lethargic. - Current Medication List Current Medications: Active Medications Acetaminophen (Tylenol Oral Solution -) 650 mg GT Q4H PRN PRN Reason: PAIN Amino Acids (Prosource No Carb Liquid Pkt) 30 ml PEG DAILY [facility] Last Admin: 07/06/20 10:55 Dose: 30 ml Documented by: Banana Based Medical Food (Banatrol Plus Powder Packet) 1 packet PO TID [facility] Last Admin: 07/06/20 05:23 Dose: 1 packet Documented by: Docusate Sodium (Colace Liquid -) 100 mg GT TID [facility] Last Admin: 07/06/20 05:24 Dose: Not Given Documented by: Enoxaparin Sodium (Lovenox -) 40 mg SQ DAILY [facility] Last Admin: 07/06/20 10:55 Dose: 40 mg Documented by: Famotidine (Pepcid) 20 mg PEG DAILY [facility] Last Admin: 07/06/20 10:55 Dose: 20 mg Documented by: Ferrous Sulfate (Feosol) 300 mg GT DAILY [facility] Last Admin: 07/06/20 10:55 Dose: 300 mg Documented by: Furosemide (Lasix Oral Solution -) 40 mg GT BID@0600,1400 [facility] Last Admin: 07/06/20 05:23 Dose: 40 mg Documented by: Insulin Aspart (Novolog Vial Sliding Scale -) 1 vial SQ Q6H [facility]; Protocol Last Admin: 07/06/20 05:38 Dose: Not Given Documented by: Labetalol HCl (Normodyne Injection -) 10 mg IVPUSH Q8H PRN PRN Reason: HYPERTENSION Lacosamide (Vimpat Liquid -) 100 mg GT BID [facility] Last Admin: 07/06/20 10:55 Dose: 100 mg Documented by: Latanoprost (Xalatan 0.005% Eye Drops -) 1 drop OU HS [facility] Last Admin: 07/05/20 22:23 Dose: 1 drop Documented by: Levetiracetam (Keppra Oral Solution -) 1,250 mg GT BID [facility] Last Admin: 07/06/20 10:55 Dose: 1,250 mg Documented by: Levofloxacin (Levaquin -) 500 mg GT DAILY@0600 [facility] Last Admin: 07/06/20 05:22 Dose: 500 mg Documented by: Losartan Potassium (Cozaar -) 100 mg GT DAILY [facility] Last Admin: 07/06/20 10:55 Dose: 100 mg Documented by: Metoprolol Tartrate (Lopressor -) 12.5 mg GT BID [facility] Last Admin: 07/06/20 11:00 Dose: 12.5 mg Documented by: Metronidazole (Flagyl -) 500 mg PO TID [facility] Nystatin (Nystatin Oral Suspension -) 500,000 units PO Q6HPO [facility] Last Admin: 07/06/20 05:23 Dose: 500,000 units Documented by: Polyethylene Glycol (Miralax (For Daily Use) -) 17 gm GT DAILY [facility] Last Admin: 07/06/20 11:03 Dose: Not Given Documented by: Potassium Chloride (Potassium Chloride Oral Liquid) 40 meq GT BID [facility] Last Admin: 07/06/20 10:55 Dose: 40 meq Documented by: Valproate Sodium (Depakene -) 750 mg GT BID [facility] Last Admin: 07/06/20 10:55 Dose: 750 mg Documented by: - Objective Vital Signs: Vital Signs Temperature 97.4 F L 07/06/20 06:00 Pulse Rate 89 07/06/20 06:00 Respiratory Rate 13 07/06/20 09:30 Blood Pressure 142/78 07/06/20 06:00 O2 Sat by Pulse Oximetry (%) 100 07/06/20 09:30 Constitutional: Yes: Calm Eyes: Yes: Conjunctiva Clear HENT: Yes: Atraumatic Neck: Yes: Supple Cardiovascular: Yes: S1, S2 Respiratory: Yes: CTA Bilaterally Gastrointestinal: Yes: Normal Bowel Sounds, Soft Genitourinary: Yes: Incontinence Musculoskeletal: Yes: Muscle Weakness Edema: Yes Edema: LUE: 1+, RUE: 1+ Neurological: Yes: Lethargy Labs: CBC, BMP 07/04/20 06:45 07/04/20 06:45 INR, PTT INR 1.15 (0.83-1.09) H 06/26/20 12:55 Assessment/Plan Current Medications Generic Name Dose Route Start Last Admin Trade Name Freq PRN Reason Stop Dose Admin Acetaminophen 650 mg 06/29/20 18:18 Tylenol Oral Solution - GT Q4H PRN PAIN Amino Acids 30 ml 07/02/20 10:00 07/06/20 10:55 Prosource No Carb Liquid Pkt PEG 30 ml DAILY [facility] Administration Banana Based Medical Food 1 packet 07/04/20 14:00 07/06/20 05:23 Banatrol Plus Powder Packet PO 1 packet TID [facility] Administration Docusate Sodium 100 mg 06/29/20 22:00 07/06/20 05:24 Colace Liquid - GT Not Given TID [facility] Enoxaparin Sodium 40 mg 06/28/20 10:00 07/06/20 10:55 Lovenox - SQ 40 mg DAILY [facility] Administration Famotidine 20 mg 06/30/20 10:00 07/06/20 10:55 Pepcid PEG 20 mg DAILY [facility] Administration Ferrous Sulfate 300 mg 06/30/20 10:00 07/06/20 10:55 Feosol GT 300 mg DAILY [facility] Administration Furosemide 40 mg 07/03/20 14:00 07/06/20 05:23 Lasix Oral Solution - GT 40 mg BID@0600,1400 [facility] Administration Insulin Aspart 1 vial 06/29/20 18:31 07/06/20 05:38 Novolog Vial Sliding Scale - SQ Not Given Q6H [facility] Protocol Labetalol HCl 10 mg 06/28/20 13:47 Normodyne Injection - IVPUSH Q8H PRN HYPERTENSION Lacosamide 100 mg 07/03/20 11:30 07/06/20 10:55 Vimpat Liquid - GT 100 mg BID [facility] Administration Latanoprost 1 drop 07/04/20 22:00 07/05/20 22:23 Xalatan 0.005% Eye Drops - OU 1 drop HS [facility] Administration Levetiracetam 1,250 mg 07/03/20 11:30 07/06/20 10:55 Keppra Oral Solution - GT 1,250 mg BID [facility] Administration Levofloxacin 500 mg 07/04/20 13:45 07/06/20 05:22 Levaquin - GT 500 mg DAILY@0600 [facility] Administration Losartan Potassium 100 mg 06/30/20 10:00 07/06/20 10:55 Cozaar - GT 100 mg DAILY [facility] Administration Metoprolol Tartrate 12.5 mg 06/29/20 22:00 07/06/20 11:00 Lopressor - GT 12.5 mg BID [facility] Administration Metronidazole 500 mg 07/06/20 14:00 Flagyl - PO TID [facility] Nystatin 500,000 units 07/02/20 18:00 07/06/20 05:23 Nystatin Oral Suspension - PO 500,000 units Q6HPO [facility] Administration Polyethylene Glycol 17 gm 06/30/20 10:00 07/06/20 11:03 Miralax (For Daily Use) - GT Not Given DAILY [facility] Potassium Chloride 40 meq 07/01/20 14:17 07/06/20 10:55 Potassium Chloride Oral Liquid GT 40 meq BID [facility] Administration Valproate Sodium 750 mg 07/03/20 11:30 07/06/20 10:55 Depakene - GT 750 mg BID [facility] Administration Impression 1. hypokalemia 2. fluid overload 3. epilepsy with status 4. htn 5. dm 6. asthma 7. anemia 8. Anoxic Encephalopathy 9. PNA Plan - check cmp in am - cont lasix, pt on po - monitor volume status - cont vent support - monitor lytes
--- NOTE | 2020-07-06 13:42 | DS ---
Physical Examination Vital Signs: Vital Signs Temperature 97.4 F L 07/06/20 06:00 Pulse Rate 89 07/06/20 06:00 Respiratory Rate 13 07/06/20 09:30 Blood Pressure 142/78 07/06/20 06:00 O2 Sat by Pulse Oximetry (%) 100 07/06/20 09:30 Findings/Remarks: (1) Bacteremia Assessment/Plan: -First BC growing Staph-contaminant? -Repeat BC negative -D/C IV Vanco+ Zosyn and monitor -ID on board -Afebrile Problems reviewed: Yes Code(s): R78.81 - BACTEREMIA (2) Chronic indwelling Neely catheter Assessment/Plan: -maintain neely Problems reviewed: Yes Code(s): Z97.8 - PRESENCE OF OTHER SPECIFIED DEVICES (3) Edema Assessment/Plan: -Continue Furosemide 40 mg GT BID Problems reviewed: Yes Code(s): R60.9 - EDEMA, UNSPECIFIED Qualifiers: Edema type: unspecified Qualified Code(s): R60.9 - Edema, unspecified (4) Status epilepticus Assessment/Plan: -Seen by Neurology and Neurosurgery -Continue depakote and Vimpat Problems reviewed: Yes Code(s): G40.901 - EPILEPSY, UNSP, NOT INTRACTABLE, WITH STATUS EPILEPTICUS (5) UTI (urinary tract infection) Assessment/Plan: -UC:negative -Finished IV abx Problems reviewed: Yes Code(s): N39.0 - URINARY TRACT INFECTION, SITE NOT SPECIFIED (6) Pseudomonas aeruginosa infection Assessment/Plan: -SC:Pseudomonas -Started on Levaquin and flagyl (for diarrhea) Problems reviewed: Yes Code(s): A49.8 - OTHER BACTERIAL INFECTIONS OF UNSPECIFIED SITE (7) Diarrhea Assessment/Plan: -Cdiff PCR pending -Started on Flagyl and levaquin via GT Problems reviewed: Yes Code(s): R19.7 - DIARRHEA, UNSPECIFIED Assessment/Plan See problem list Constitutional: Yes: Well Nourished, No Distress, Calm Cardiovascular: Yes: Regular Rate and Rhythm Respiratory: Yes: Regular, CTA Bilaterally Gastrointestinal: Yes: Normal Bowel Sounds, Soft Renal/: Yes: Neely Present Musculoskeletal: Yes: WNL Extremities: Yes: Other (generalized atrophy) Edema: Yes (generalized) Peripheral Pulses WNL: Yes Neurological: Yes: Other (obtunded) Labs: CBC, BMP 07/04/20 06:45 07/04/20 06:45 Discharge Summary Problems reviewed: Yes Reason For Visit: DIABETES MELLITUS ANEMIA HYPERTENSION STATUS EPILE Current Active Problems Anemia (Acute) Bacteremia (Acute) CVA (cerebral vascular accident) (Acute) Chronic indwelling Neely catheter (Acute) Diabetes (Acute) Diarrhea (Acute) Edema (Acute) Hypokalemia (Acute) Pseudomonas aeruginosa infection (Acute) Respiratory failure (Acute) Seizure disorder (Acute) Seizure disorder as sequela of cerebrovascular accident (Acute) Status epilepticus (Acute) Subdural bleeding (Acute) Tracheostomy dependent (Acute) UTI (urinary tract infection) (Acute) Condition: Stable - Instructions Referrals: Nik Caracmo MD [Primary Care Provider] - Disposition: [facility] - Home Medications Comprehensive Discharge Medication List: Ambulatory Orders Docusate Sodium [Colace Oral Solution -] 100 mg GT TID 06/26/20 Ferrous Sulfate [Feosol] 300 mg GT DAILY 06/26/20 Furosemide [Lasix -] 20 mg GT DAILY 06/26/20 Insulin Lispro [Admelog Solostar] 100 unit SQ ASDIR 06/26/20 Lactobacillus Acidophilus [Acidophilus] 1 each GT DAILY 06/26/20 Levetiracetam [Spritam] 1,000 mg GT BID 06/26/20 Losartan Potassium [Cozaar] 100 mg GT DAILY 06/26/20 Metoprolol Tartrate [Lopressor -] 12.5 mg GT BID 06/26/20 Ondansetron [Zofran *Odt*] 4 mg SL TID PRN 06/26/20 Polyethylene Glycol 3350 [Miralax (For Daily Use) -] 17 gm GT DAILY 06/26/20 Senna [place] Extract [Senna] 176 mg GT HS 06/26/20 Prescription Drug Monitoring Program (I-STOP) results: I-STOP reviewed and no issues identified
[2020-07-06] MEDS ORDERED: metroNIDAZOLE 500 MG TABLET PO SCH (14:00)
[2020-07-06 15:08] VITALS: BP 136/68; PULSE 79; TEMP 98.5
== END 2020-07-06 17:25 | DRG 100 ==
LOC: JER 12:38 → JERBED 15:17 → JICU 17:53 → J5S 06-29 17:14
PROVIDERS: ADMIT Family Medicine; ATTEND Family Medicine
PROC: 5A1955Z Respiratory Ventilation, Greater than 96 Consecutive Hours (ICD-10-PCS; principal; 2020-06-26)
PROC: 3E0H76Z Introduction of Nutritional Substance into Lower GI, Via Natural or Artificial Opening (ICD-10-PCS; 2020-06-26)
PROC: 4A00X4Z Measurement of Central Nervous Electrical Activity, External Approach (ICD-10-PCS; 2020-06-27)
PROC: 05H933Z Insertion of Infusion Device into Right Brachial Vein, Percutaneous Approach (ICD-10-PCS; 2020-07-01)
DX: G40.901 Epilepsy, unspecified, not intractable, with status epilepticus (principal); I62.03 Nontraumatic chronic subdural hemorrhage; G93.41 Metabolic encephalopathy; J18.9 Pneumonia, unspecified organism; J96.10 Chronic respiratory failure, unspecified whether with hypoxia or hypercapnia; R78.81 Bacteremia; G93.1 Anoxic brain damage, not elsewhere classified; N39.0 Urinary tract infection, site not specified; E87.3 Alkalosis; I69.398 Other sequelae of cerebral infarction; J45.909 Unspecified asthma, uncomplicated; K21.9 Gastro-esophageal reflux disease without esophagitis; J44.9 Chronic obstructive pulmonary disease, unspecified; E11.40 Type 2 diabetes mellitus with diabetic neuropathy, unspecified; D64.9 Anemia, unspecified; R13.10 Dysphagia, unspecified; J32.9 Chronic sinusitis, unspecified; E87.70 Fluid overload, unspecified; I45.10 Unspecified right bundle-branch block; H70.91 Unspecified mastoiditis, right ear; B95.7 Other staphylococcus as the cause of diseases classified elsewhere; N31.9 Neuromuscular dysfunction of bladder, unspecified; A49.8 Other bacterial infections of unspecified site; E87.6 Hypokalemia; R19.7 Diarrhea, unspecified; Z93.1 Gastrostomy status; Z93.0 Tracheostomy status; Z97.8 Presence of other specified devices
CPT/HCPCS: 36415; 36600; 70450-TC; 71045-TC-FY; 74018-TC-FY; 80053; 80164; 81003; 82272; 82728; 82803; 82962; 83036; 83540; 83550; 83605; 83690; 83735; 83880; 84100; 84484; 85025; 85610; 85730; 86850; 86900; 86901; 87040; 87070; 87086; 87186; 87205; 87493; 93005; 93010; 93306-TC; 94002; 95816; 99285-25; G0480; U0003

== ENCOUNTER 2020-07-13 10:36 | Inpatient (IN) | payer OTHER ==
[2020-07-13] MEDS ORDERED: MIDAZOLAM HCL 2 MG/2 ML SINGLE DOSE VIAL IM ONE (11:27)
[2020-07-13] MEDS ORDERED: MIDAZOLAM HCL 2 MG/2 ML SINGLE DOSE VIAL ONE (11:30)
--- NOTE | 2020-07-13 12:16 | PDOC ---
Documentation entered by Bonny Lopez SCRIBE, acting as scribe for Rodrigo Hutchinson MD. Rodrigo Hutchinson MD: This documentation has been prepared by the Jessica contreras Brenda, SCRIBE, under my direction and personally reviewed by me in its entirety. I confirm that the documentation accurately reflects all work, treatment, procedures, and medical decision making performed by me. History of Present Illness - General Chief Complaint: CVA/TIA Stated Complaint: STROKE History Source: Patient Exam Limitations: No Limitations - History of Present Illness Initial Comments: 07/13/20 11:47 The patient is an 79 year old male with a significant PMH of cardiac arrest, ICH, dysphagia, hypertension, asthma, GERD, T1DM, neuropathy, COPD, s/p tracheostomy, seizures, metabolic encephalopathy, s/p chronic neely (changed every third Sat), and nonverbal at baseline who presents to the ED BIB[facility] from [facility] for evaluation of facial twitching and unequal pupils during rounds this morning. Patient is not able to provide any history. Allergies: NKA Past History - Medical History Allergies/Adverse Reactions: Allergies Allergy/AdvReac Type Severity Reaction Status Date / Time No Known Allergies Allergy Verified 06/26/20 13:13 Home Medications: Ambulatory Orders Ferrous Sulfate [Feosol] 300 mg GT DAILY 06/26/20 Lactobacillus Acidophilus [Acidophilus] 1 each GT DAILY 06/26/20 Losartan Potassium [Cozaar] 100 mg GT DAILY 06/26/20 Metoprolol Tartrate [Lopressor -] 12.5 mg GT BID 06/26/20 Acetaminophen Oral Solution [Tylenol Oral Solution -] 650 mg GT Q4H PRN soln.oral 07/06/20 Enoxaparin [Lovenox -] 40 mg SQ DAILY disp.syrin 07/06/20 Furosemide Oral Solution [Lasix Oral Solution -] 40 mg GT BID@0600,1400 udc 07/06/20 Lacosamide Liquid [Vimpat Liquid -] 100 mg GT BID cup 07/06/20 Latanoprost 0.005% Eye Drops [Xalatan 0.005% Eye Drops -] 1 drop OU HS drops 07/06/20 Sitagliptin Phosphate [Januvia -] 25 mg PO DAILY@0700 #30 tab 07/06/20 Valproate Sodium [Depakene -] 750 mg GT BID cup 07/06/20 levETIRAcetam [Keppra Oral Solution -] 1,250 mg GT BID cup 07/06/20 metroNIDAZOLE [Flagyl -] 500 mg GT TID 7 Days #21 tablet 07/06/20 Aa/Hydrolyzed Collagen, Whey [Lps 15-30 Liquid] 30 ml PO DAILY 07/13/20 Famotidine [Pepcid] 2.5 ml PO DAILY 07/13/20 Insulin Lispro [Admelog Solostar] 0 unit SQ QID MDD sliding scale 07/13/20 Ondansetron [Zofran -] 4 mg PO TID 07/13/20 Silver Sulfadiazine [Silvadene] 1 applic TP BID 07/13/20 Anemia: Yes Asthma: Yes Cardiac Disorders: Yes (CARDIAC ARREST,) CVA: Yes (HEMMORHAGIC) COPD: Yes CHF: Yes Diabetes: Yes GI Disorders: Yes (GERD) HTN: Yes Hypercholesterolemia: Yes Seizures: Yes - Immunization History Immunization Up to Date: No - Psycho-Social/Smoking History Smoking History: Never smoked Have you smoked in the past 12 months: No - Substance Abuse Hx (Audit-C & DAST Scrn) How often the patient has a drink containing alcohol: Never Score: In Men: 4 or > Positive; In Women: 3 or > Positive: 0 Screen Result (Pos requires Nsg. Audit-10AR): Negative Review of Systems - Review of Systems Able to Perform ROS?: No *Physical Exam - Vital Signs Last Vital Signs Temp Pulse Resp BP Pulse Ox 99.5 F 107 H 18 111/62 100 07/13/20 10:40 07/13/20 10:40 07/13/20 10:40 07/13/20 10:40 07/13/20 10:40 - Physical Exam 07/13/20 12:10 EXAMINATION CONSTITUTIONAL: unresponsive, trach/vented, doesnt respod to verbal comands or sternal rub; HEAD: Normocephalic; atraumatic EYES: left gaze prefernce, pupils are round, equal, poorly reactive ENMT: External appears normal; + large amount of oral and trach secretions; + Repetitive, rhythmic clonic movements of face, lips and eyelids NECK: Supple;+ trach in place CARD: Tachycardic; Normal S1, S2; no murmurs, rubs, or gallops RESP: Normal chest excursion with respiration; breath sounds clear and equal bilaterally; no wheezes, rhonchi, or rales ABD: Soft, non-distended; non-tender; no palpable organomegaly, no palpable hernias EXT: + +4 pitting edema of the upper and lower extremities, with decreased distal pulses due to edema SKIN: Warm, dry, no rash NEURO: comatose, Unresponsive; no spontaneous movements are noted. GCS-3 Procedures - Central Line Central Line Lumen: triple Central Line Position: femoral (R) Anesthesia: 1% Lidocaine w/ epi Amount of anesthesia (ccs): 2 Complications: none Post Central Line Insertion: sutured, good blood return ED Treatment Course - LABORATORY CBC & Chemistry Diagram: 07/13/20 14:00 07/13/20 14:00 Medical Decision Making - Medical Decision Making 07/13/20 12:14 Patient is an 79-year-old male, status post cardiac arrest with anoxic brain encephalopathy, intractable seizures, history of chronic bilateral subdural, presents from [facility] for anisocoria and facial twitching. In the ER, patient is noted to be unresponsive and comatose. Clonic movements of face, lips and eyelids are noted consistent with status epilepticus. Left gaze prefer ence is also noted. I do not suspect CVA. Patient is not a candidate for TPA. Patient received 5 mg of IM Versed with significant improvement in the frequency of his clonic facial movements. Will obtain CT of head to evaluate for increased subdural hematoma. Will consult neurosurgery as necessary. Will also consult neurology. 07/13/20 14:52 CT of head shows stable bilateral subdural hematomas without acute change. Case discussed with Dr. Luna of neurology. recomends ativan-2mg iv, followed by iv vimpat. We will continue to observe. Will admit. 07/13/20 15:52 Patient having loose watery diarrhea. Given recent admission and antibiotic use, will obtain stool studies for C. difficile toxin and antigen 07/13/20 16:16 I informed the patient's , Ms. crow whitlock of the patient's condition. Discharge - Discharge Information Problems reviewed: Yes Clinical Impression/Diagnosis: Status epilepticus Diarrhea Qualifiers: Diarrhea type: unspecified type Qualified Code(s): R19.7 - Diarrhea, unspecified Condition: Fair - Admission Yes - Follow up/Referral - Patient Discharge Instructions - Post Discharge Activity
[2020-07-13] MEDS ORDERED: Lacosamide 200 MG/20 ML VIAL IVPB ONE ×2 (13:53→13:56)
[2020-07-13] MEDS ORDERED: LORazepam 2 MG/ML SDV VIAL ONE (13:56)
[2020-07-13 14:43] LABS: BASO % 0.4 % (0-2.0); EOS % 0.9 % (0-4.5); HEMATOCRIT 29.3 % (35.4-49); HEMOGLOBIN 9.1 GM/dL (11.7-16.9); LYMPH % 14.5 % (8-40); MCH 25.4 pg (25.7-33.7); MCHC 31.2 g/dl (32.0-35.9); MEAN CELL VOLUME 81.6 fl (80-96); MEAN PLT VOLUME 8.2 fl (7.5-11.1); MONO % 15.6 % (3.8-10.2); NEUT % 68.6 % (42.8-82.8); PLATELET COUNT 748 K/MM3 (134-434); RBC 3.59 M/mm3 (4.00-5.60); RDW 18.6 % (11.9-15.9); WHITE BLOOD COUNT 19.1 K/mm3 (4.0-10.0)
[2020-07-13] MEDS ORDERED: SODIUM CHLORIDE 500 ML IV STA ×2 (14:49→15:54)
[2020-07-13 15:05] LABS: ALBUMIN 2.3 g/dl (3.4-5.0); BILIRUBIN,TOTAL 0.2 mg/dL (0.2-1); BLOOD UREA NITROGEN 22.2 mg/dL (7-18); CALCIUM 9.6 mg/dL (8.5-10.1); CREATININE 0.7 mg/dL (0.55-1.3); POTASSIUM 4.3 mmol/L (3.5-5.1); TOT PROT 7.2 g/dl (6.4-8.2)
[2020-07-13 17:17] LABS: EPI CELLS 32 /uL (0-25.1); HYALINE CASTS 6 /uL (0-3.1); PH,URINE 5.5 (5.0-8.0); URINE APPEARANCE CLEAR; URINE BACTERIA 41 /uL (0-1359); URINE BILIRUBIN NEGATIVE (NEGATIVE); URINE COLOR YELLOW; URINE GLUCOSE (UA) NEGATIVE (NEGATIVE); URINE KETONE TRACE (NEGATIVE); URINE LEUK ESTERASE 1+ (NEGATIVE); URINE NITRITE NEGATIVE (NEGATIVE); URINE PROTEIN 1+ (NEGATIVE); URINE RBC 128 /uL (0-23.9); URINE UROBILINOGEN 0.2 mg/dL (0.2-1.0); URINE WBC 48 /uL (0-25.8)
[2020-07-13] MEDS ORDERED: LORazepam 2 MG/ML SDV VIAL IVPUSH PRN ×2 (17:17→21:14)
--- NOTE | 2020-07-13 17:30 | CONSULT ---
Consultation: REQUESTING PROVIDER: jaison CONSULT REQUEST: We have been asked to medically evaluate this patient for icu HISTORY OF PRESENT ILLNESS: This is a 79 year old male who is nonverbal at baseline with PMH seizures, ICH, metabolic encephalopathy, cardiac arrest, HTN, asthma, COPD, s/p tracheostomy, GERD, T1DM, chronic neely (changed every Saturday). Pt was recently hospitalized june 2020 with similar presentation. He presented to the ED from [facility] for evaluation of facial twitching and unequal pupils. Pt has been on new anti-epileptic regimen . [facility] records show pt has also been on flagyl In ED pt received versed 5mg, ativan mg , vimpat 150 and continues to have face twitching. pt BP dropped to 85/46, but responded to [address] Luna notified. Head CT negative for acute pathology. REVIEW OF SYSTEMS: unable to obtain. pt is trached. non verbal PHYSICAL EXAMINATION Vital Signs - 24 hr 07/13/20 07/13/20 07/13/20 10:40 10:45 12:00 Temperature 99.5 F Pulse Rate 107 H 13 L Pulse Rate [ Left Radial] Respiratory 21 H 12 Rate Blood Pressure 111/62 Blood Pressure [Right Arm] O2 Sat by Pulse 98 100 98 Oximetry (%) 07/13/20 07/13/20 07/13/20 13:30 15:00 15:50 Temperature Pulse Rate Pulse Rate [ 100 H 94 H 85 Left Radial] Respiratory 18 13 18 Rate Blood Pressure Blood Pressure 118/76 92/52 L 85/46 L [Right Arm] O2 Sat by Pulse 100 100 0 L Oximetry (%) 07/13/20 16:19 Temperature Pulse Rate Pulse Rate [ Left Radial] Respiratory 15 Rate Blood Pressure Blood Pressure [Right Arm] O2 Sat by Pulse 99 Oximetry (%) GENERAL: HEAD: Normal with no signs of trauma. EYES: EARS, NOSE, THROAT: oropharynx clear without exudates. Moist mucous membranes. LUNGS: vent sounds equal b/l, scattered rales b/l No accessory muscle use. HEART: Regular rate and rhythm, normal S1 and S2 without murmur ABDOMEN: Soft, nontender, not distended, normoactive bowel sounds, no guarding, no rebound, no masses. PEG in place. no erythema UPPER EXTREMITIES: 2+ pulses, 2+ piting edema LOWER EXTREMITIES: 2+ pulses, , 2+ edema at dorsal foot b/l NEUROLOGICAL: twitching of face. not following commands. stage 2 sacral ulcer on L butt Laboratory Results - last 24 hr 07/13/20 07/13/20 07/13/20 14:00 14:00 16:15 WBC 19.1 H RBC 3.59 L Hgb 9.1 L Hct 29.3 L MCV 81.6 MCH 25.4 L MCHC 31.2 L RDW 18.6 H Plt Count 748 H MPV 8.2 D Absolute Neuts (auto) 13.1 H Neutrophils % 68.6 Lymphocytes % 14.5 D Monocytes % 15.6 H Eosinophils % 0.9 Basophils % 0.4 Nucleated RBC % 0 Sodium 140 Potassium 4.3 Chloride 103 Carbon Dioxide 33 H Anion Gap 4 L BUN 22.2 H Creatinine 0.7 Est GFR (CKD-EPI)AfAm 103.30 Est GFR (CKD-EPI)NonAf 89.13 Random Glucose 147 H Calcium 9.6 Total Bilirubin 0.2 AST 20 ALT 21 Alkaline Phosphatase 50 Total Protein 7.2 Albumin 2.3 L Urine Color Yellow Urine Appearance Clear Urine pH 5.5 D Ur Specific Matthews 1.021 Urine Protein 1+ H Urine Glucose (UA) Negative Urine Ketones Trace H Urine Blood 2+ H Urine Nitrite Negative Urine Bilirubin Negative Urine Urobilinogen 0.2 Ur Leukocyte Esterase 1+ H Urine WBC (Auto) 48 Urine RBC (Auto) 128 Urine Casts (Auto) 6 U Epithel Cells (Auto) 32 Urine Bacteria (Auto) 41 Active Medications Current Medications Generic Name Dose Route Start Last Admin Trade Name Freq PRN Reason Stop Dose Admin Acetaminophen 650 mg 07/13/20 17:40 Tylenol Oral Solution - GT Q4H PRN PAIN Chlorhexidine Gluconate 1 applic 07/13/20 22:00 Hibiclens For Decolonization - TP HS NORRIS Enoxaparin Sodium 40 mg 07/14/20 10:00 Lovenox - SQ DAILY NORRIS Famotidine 20 mg 07/14/20 10:00 Pepcid PO DAILY NORRIS Furosemide 40 mg 07/14/20 06:00 Lasix Oral Solution - GT BID@0600,1400 NORRIS Lacosamide 200 mg 07/13/20 22:00 Vimpat Liquid - GT BID NORRIS Lactobacillus Acidophilus 1 tab 07/14/20 10:00 Bacid - GT DAILY NORRIS Latanoprost 1 drop 07/13/20 22:00 Xalatan 0.005% Eye Drops - OU HS NORRIS Levetiracetam 1,250 mg 07/13/20 22:00 Keppra Oral Solution - GT BID NORRIS Lorazepam 2 mg 07/13/20 17:17 Ativan Injection - IVPUSH Q6H PRN AGITATION Mupirocin 1 applic 07/13/20 22:00 Bactroban Ointment (For Decolonization) - NS 07/18/20 21:59 BID NORRIS Silver Sulfadiazine 1 applic 07/13/20 22:00 Silvadene - TP BID NORRIS Valproate Sodium 750 mg 07/13/20 22:00 Depakene - GT BID NORRIS Discontinued Medications Generic Name Dose Route Start Last Admin Trade Name Freq PRN Reason Stop Dose Admin Sodium Chloride 500 mls @ 500 mls/hr 07/13/20 14:49 07/13/20 14:56 Normal Saline - IV 07/13/20 15:48 500 mls/hr ASDIR STA Administration Sodium Chloride 500 mls @ 500 mls/hr 07/13/20 15:54 07/13/20 15:59 Normal Saline - IV 07/13/20 16:53 500 mls/hr ASDIR STA Administration Lacosamide 150 mg 07/13/20 13:53 07/13/20 14:10 Vimpat Injection - IVPB 07/13/20 13:54 150 mg ONCE ONE Administration Lorazepam 2 mg 07/13/20 13:52 07/13/20 13:59 Ativan Injection - IVPUSH 07/13/20 13:53 2 mg ONCE ONE Administration Midazolam HCl 5 mg 07/13/20 11:27 07/13/20 11:34 Versed - IM 07/13/20 11:28 5 mg ONCE ONE Administration Head CT: 1. Stable bilateral subdural hygromas since 06/28/2020. 2. No evidence of acute intracranial pathology. 3. Sinus disease as described above. CXR: Single view of the chest has been submitted. Since the prior study of 06/29/2020 the extensive left pulmonary and pleural changes have diminished somew hat. There is some prominence of the right hilum. A tracheostomy tube remains in place. The patient is slightly rotated to the right. Follow-up recommended. ASSESSMENT/PLAN: 79 yo M PMH of cardiac arrest, ICH, dysphagia, hypertension, asthma, GERD, T1DM, neuropathy, COPD( s/p tracheostomy), seizure d/o ,chronic neely (changed every third Sat), and nonverbal at baseline who presents to the ED via EMS from [facility] with a seizure.Pt is admitted to ICU for status epilepticus, r/o sepsis Neuro: seizures 2/2 Acute toxic metabolic encephalopathy, seizure d/o - cont with Ativan 2mg q2hr prn for seizures - c/w keppra 1250 bid - will increase vimpat 200mg bid as per neuro recs. - will cont depaken -neuro recs ( Dr. Luna ) appreciated. - head CT negative for acute pathology,please see above -pt is at baseline mental status. - aspiration precautions , seizure precaitions Cardio - cardio, Dr. Canales , consulted - c/w lasix 40 IVP bid with BP parameters -cont to monitor BP. will hold antihypertensives now 2/2 low BP - monitor I/Os closely - Echo from 06/2020 reviewed, EF 60% Pulm - trached to vent -A/C TV 400, RR 12, FiO2 50, PEEP 5 -CXR reviewed,improved from prior. congestion noted. see above . will cont home dose lasix ID - leukocytosis 19.1, lactic acid 2.1, afebrile - UA noted -pending BCx, Ucx , sputum Cx - reviewed cultures from prior admission - will hold flagyl as it can decreased seizure threshold - will cont IVF at low rate -will consult ID Endo T1DM - BGM , ISS Urology - chronic neely GI GERD - c/w pepcid - hold feeds until seizure condition improves DVT ppx: lovenox daily GIppx: pepcid 20 mg daily Stable for downgrade to vent unit. pt is at baseline mental status. Dispo: We will continue to follow the patient. Thank you for this consultative opportunity. ATTENDING PHYSICIAN STATEMENT I saw and evaluated the patient. I reviewed the resident's note and discussed the case with the resident. I agree with the resident's findings and plan as documented. SUBJECTIVE: OBJECTIVE: ASSESSMENT AND PLAN:
[2020-07-13] MEDS ORDERED: ACETAMINOPHEN 650 MG/20.3 ML ORAL SOLUTION (CUPS) GT PRN (17:40)
[2020-07-13 17:45] LABS: MAGNESIUM 2.1 mg/dL (1.8-2.4); PHOSPHOROUS 3.4 mg/dL (2.5-4.9)
[2020-07-13] MEDS ORDERED: PIPERACILLIN/TAZOBACTAM 3.375 GM VIAL IVPB ONE (21:04)
[2020-07-13] MEDS ORDERED: DEXTROSE 5%-WATER - 50 ML IVPB ONE (21:04)
[2020-07-13] MEDS: PIPERACILLIN/TAZOB 3.375 GM 3.375 GM in DEXTROSE 5%-WATER - 50 ML IVPB SCH (21:32)
[2020-07-13] MEDS: MUPIROCIN 2% TOPICAL OINTMENT FOR DECOLONIZATION NS SCH (21:33)
[2020-07-13] MEDS: SILVER SULFADIAZINE 1% TOP CREAM 50 GM JAR TP SCH (21:50)
[2020-07-13] MEDS: levETIRAcetam 500 MG/5 ML ORAL SOLUTION (UNIT-DOSE CUPS) GT SCH (21:51)
[2020-07-13] MEDS ORDERED: CHLORHEXIDINE GLUCONATE 4% CLEANSER FOR DECOLONIZATION TP SCH (22:00)
[2020-07-13] MEDS ORDERED: LATANOPROST 0.005% OPHTH SOLN 2.5ML BOTTLE OU SCH (22:00)
[2020-07-13] MEDS: Lacosamide 50 MG/5 ML ORAL SOLUTION UNIT CUPS GT SCH (22:20)
[2020-07-13] MEDS: VALPROATE SODIUM 250 MG/5 ML UNIT DOSE CUP GT SCH (22:34)
--- NOTE | 2020-07-14 01:27 | CON.NEURO ---
Consult Consult Specialty:: [facility] Neurology Referred by:: ER Reason for Consultation:: Sz - History of Present Illness History of Present Illness: 79 year sold man with multiple medical problem well known to me from recent admission and discharge from [facility] with similar situation for abnormal facial twitching in [facility] patient received Ativan and Versed and loading dosage of Vimpat Not able to give any history On vent No gaze deviation On multiple Aed No EEG done today - History Source Limitations to Obtaining History: Clinical Condition - Past Medical History [employer]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: CVA, Peripheral Neuropathy, Seizure, Other (ICH, metabolic encephal opathy) Cardio/Vascular: Yes: HTN, Other (cardiac arrest) Pulmonary: Yes: Asthma, COPD, O2 Dependent, Other (trach to vent) Gastrointestinal: Yes: Other (PEG) Renal/: Yes: Other (chronic neely) ENT: Yes: Sinusitis Endocrine: Yes: Diabetes Mellitus - Alcohol/Substance Use Hx Alcohol Use: No - Smoking History Smoking history: Never smoked Have you smoked in the past 12 months: No Home Medications - Allergies Allergies/Adverse Reactions: Allergies Allergy/AdvReac Type Severity Reaction Status Date / Time No Known Allergies Allergy Verified 06/26/20 13:13 - Home Medications Home Medications: Ambulatory Orders Ferrous Sulfate [Feosol] 300 mg GT DAILY 06/26/20 Lactobacillus Acidophilus [Acidophilus] 1 each GT DAILY 06/26/20 Losartan Potassium [Cozaar] 100 mg GT DAILY 06/26/20 Metoprolol Tartrate [Lopressor -] 12.5 mg GT BID 06/26/20 Acetaminophen Oral Solution [Tylenol Oral Solution -] 650 mg GT Q4H PRN soln.oral 07/06/20 Enoxaparin [Lovenox -] 40 mg SQ DAILY disp.syrin 07/06/20 Furosemide Oral Solution [Lasix Oral Solution -] 40 mg GT BID@0600,1400 udc 07/06/20 Lacosamide Liquid [Vimpat Liquid -] 100 mg GT BID cup 07/06/20 Latanoprost 0.005% Eye Drops [Xalatan 0.005% Eye Drops -] 1 drop OU HS drops 07/06/20 Sitagliptin Phosphate [Januvia -] 25 mg PO DAILY@0700 #30 tab 07/06/20 Valproate Sodium [Depakene -] 750 mg GT BID cup 07/06/20 levETIRAcetam [Keppra Oral Solution -] 1,250 mg GT BID cup 07/06/20 metroNIDAZOLE [Flagyl -] 500 mg GT TID 7 Days #21 tablet 07/06/20 Aa/Hydrolyzed Collagen, Whey [Lps 15-30 Liquid] 30 ml PO DAILY 07/13/20 Famotidine [Pepcid] 2.5 ml PO DAILY 07/13/20 Insulin Lispro [Admelog Solostar] 0 unit SQ QID MDD sliding scale 07/13/20 Ondansetron [Zofran -] 4 mg PO TID 07/13/20 Silver Sulfadiazine [Silvadene] 1 applic TP BID 07/13/20 Family Medical History Family History: Unable to Obtain Physical Exam-Neuro Vital Signs: Vital Signs Temperature 98.1 F 07/13/20 18:45 Pulse Rate 94 H 07/14/20 00:00 Respiratory Rate 25 H 07/14/20 00:00 Blood Pressure 154/87 07/14/20 00:00 O2 Sat by Pulse Oximetry (%) 100 07/14/20 00:00 Labs: CBC, BMP 07/13/20 14:00 07/13/20 14:00 - Neuro Exam Level Of Consciousness: Yes: Sedated Eyes: Yes: PERRLA Speech: Other Dominant Hand: Right Cranial Nerves II-XII Intact: No Gag: Present DTR's: 0 Right Brachioradialis, 0 Left Achilles, 0 Right Achilles, 1+ Left Bicep, 1+ Right Bicep, 1+ Left Tricep, 1+ Right Tricep Motor Strength: 2/5: Right Leg (unable to assess incraesed tone noted shira facial twitching ) Imaging - Results Cat Scan: Image Reviewed Problem List - Problems (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 Ativan prn 2. Klopnpin for possible myoclonus 05 mg GT bid 3. Prolactin ;evel 4. Seizure precaution 5. Incraese Vimpat to 150 mg po q12 NO NEED TO START PHENOBARB MAX THE CURRENT TREATMENT Thank you Connie Luna MD Neurology [phone]
[2020-07-14] MEDS ORDERED: PIPERACILLIN/TAZOBACTAM 3.375 GM VIAL IVPB ONE ×2 (02:50→09:38)
[2020-07-14] MEDS ORDERED: DEXTROSE 5%-WATER - 50 ML IVPB ONE ×2 (02:50→09:39)
[2020-07-14] MEDS: PIPERACILLIN/TAZOB 3.375 GM 3.375 GM in DEXTROSE 5%-WATER - 50 ML IVPB SCH ×2 (02:55→09:52)
[2020-07-14] MEDS: FUROSEMIDE 40 MG/5 ML UNIT-DOSE CUP GT SCH ×2 (06:36→13:10)
[2020-07-14 07:17] LABS: BASO % 0.3 % (0-2.0); HEMATOCRIT 27.8 % (35.4-49); HEMOGLOBIN 8.7 GM/dL (11.7-16.9); LYMPH % 22.7 % (8-40); MCH 25.2 pg (25.7-33.7); MCHC 31.2 g/dl (32.0-35.9); MEAN CELL VOLUME 80.7 fl (80-96); MEAN PLT VOLUME 7.9 fl (7.5-11.1); MONO % 14.1 % (3.8-10.2); NEUT % 60.9 % (42.8-82.8); PLATELET COUNT 768 K/MM3 (134-434); RBC 3.45 M/mm3 (4.00-5.60); RDW 18.4 % (11.9-15.9); WHITE BLOOD COUNT 16.5 K/mm3 (4.0-10.0)
[2020-07-14 07:19] LABS: ALBUMIN 2.2 g/dl (3.4-5.0); BILIRUBIN,TOTAL 0.2 mg/dL (0.2-1); BLOOD UREA NITROGEN 20.4 mg/dL (7-18); CALCIUM 9.3 mg/dL (8.5-10.1); CREATININE 0.7 mg/dL (0.55-1.3); MAGNESIUM 2.1 mg/dL (1.8-2.4); PHOSPHOROUS 3.6 mg/dL (2.5-4.9); TOT PROT 7.1 g/dl (6.4-8.2)
--- NOTE | 2020-07-14 07:23 | PN ---
Physical Exam: SUBJECTIVE: Patient seen and examined. Pt is nonverbal at baseline. No acute events overnight. Spoke to family about GOC. wished to make her comfort care and do compassionate wean off ventilator. Dr. Zarate and Dr. Espinosa aware. OBJECTIVE: Vital Signs Period Temp Pulse Resp BP Sys/Canela Pulse Ox Last 24 Hr 97.0 F-99.5 F 13-107 12-26 85-161/46-88 0-100 GENERAL: Unresponsive. Occasional facial twitches. HEENT: NCAT. Pupils constricted. Neck: Tracheostomy visualized. LUNGS: Scattered rales b/l. HEART: Regular rate and rhythm, normal S1 and S2 without murmur ABDOMEN: Soft, nontender, not distended. Bowel sounds present in all [address]. Extremities: b/l upper extremity and lower extremity 2+ pitting edema SKIN: Stage 2 sacral ulcer on L buttock Laboratory Last Values WBC 16.5 K/mm3 (4.0-10.0) H 07/14/20 05:30 RBC 3.45 M/mm3 (4.00-5.60) L 07/14/20 05:30 Hgb 8.7 GM/dL (11.7-16.9) L 07/14/20 05:30 Hct 27.8 % (35.4-49) L 07/14/20 05:30 MCV 80.7 fl (80-96) 07/14/20 05:30 MCH 25.2 pg (25.7-33.7) L 07/14/20 05:30 MCHC 31.2 g/dl (32.0-35.9) L 07/14/20 05:30 RDW 18.4 % (11.9-15.9) H 07/14/20 05:30 Plt Count 768 K/MM3 (134-434) H 07/14/20 05:30 MPV 7.9 fl (7.5-11.1) 07/14/20 05:30 Absolute Neuts (auto) 10.0 K/mm3 (1.5-8.0) H 07/14/20 05:30 Neutrophils % 60.9 % (42.8-82.8) 07/14/20 05:30 Lymphocytes % 22.7 % (8-40) D 07/14/20 05:30 Monocytes % 14.1 % (3.8-10.2) H 07/14/20 05:30 Eosinophils % 2.0 % (0-4.5) D 07/14/20 05:30 Basophils % 0.3 % (0-2.0) 07/14/20 05:30 Nucleated RBC % 0 % (0-0) 07/14/20 05:30 Sodium 142 mmol/L (136-145) 07/14/20 05:30 Potassium 4.0 mmol/L (3.5-5.1) 07/14/20 05:30 Chloride 105 mmol/L (98-107) 07/14/20 05:30 Carbon Dioxide 32 mmol/L (21-32) 07/14/20 05:30 Anion Gap 5 MMOL/L (8-16) L 07/14/20 05:30 BUN 20.4 mg/dL (7-18) H 07/14/20 05:30 Creatinine 0.7 mg/dL (0.55-1.3) 07/14/20 05:30 Est GFR (CKD-EPI)AfAm 103.30 07/14/20 05:30 Est GFR (CKD-EPI)NonAf 89.13 07/14/20 05:30 POC Glucometer 124 UNITS (80-120) 07/14/20 11:40 Random Glucose 131 mg/dL (74-106) H 07/14/20 05:30 Lactic Acid 1.6 mmol/L (0.4-2.0) 07/14/20 10:55 Calcium 9.3 mg/dL (8.5-10.1) 07/14/20 05:30 Phosphorus 3.6 mg/dL (2.5-4.9) 07/14/20 05:30 Magnesium 2.1 mg/dL (1.8-2.4) 07/14/20 05:30 Total Bilirubin 0.2 mg/dL (0.2-1) 07/14/20 05:30 AST 15 U/L (15-37) 07/14/20 05:30 ALT 19 U/L (13-61) 07/14/20 05:30 Alkaline Phosphatase 50 U/L (45-117) 07/14/20 05:30 Total Protein 7.1 g/dl (6.4-8.2) 07/14/20 05:30 Albumin 2.2 g/dl (3.4-5.0) L 07/14/20 05:30 TSH 4.56 uIU/ml (0.358-3.74) H 07/14/20 05:30 Urine Color Yellow 07/13/20 16:15 Urine Appearance Clear 07/13/20 16:15 Urine pH 5.5 (5.0-8.0) D 07/13/20 16:15 Ur Specific [place] 1.021 (1.010-1.035) 07/13/20 16:15 Urine Protein 1+ (NEGATIVE) H 07/13/20 16:15 Urine Glucose (UA) Negative (NEGATIVE) 07/13/20 16:15 Urine Ketones Trace (NEGATIVE) H 07/13/20 16:15 Urine Blood 2+ (NEGATIVE) H 07/13/20 16:15 Urine Nitrite Negative (NEGATIVE) 07/13/20 16:15 Urine Bilirubin Negative (NEGATIVE) 07/13/20 16:15 Urine Urobilinogen 0.2 mg/dL (0.2-1.0) 07/13/20 16:15 Ur Leukocyte Esterase 1+ (NEGATIVE) H 07/13/20 16:15 Urine WBC (Auto) 48 /uL (0-25.8) 07/13/20 16:15 Urine RBC (Auto) 128 /uL (0-23.9) 07/13/20 16:15 Urine Casts (Auto) 6 /uL (0-3.1) 07/13/20 16:15 U Epithel Cells (Auto) 32 /uL (0-25.1) 07/13/20 16:15 Urine Bacteria (Auto) 41 /uL (0-1359) 07/13/20 16:15 Valproic Acid 63.2 ug/mL (50-100) 07/13/20 21:30 COVID-19 (NEENA) Not detected (Not Detected) 07/13/20 17:30 Active Medications Morphine Sulfate (Morphine 100mg/100ml-0.9% Nacl) 100 mg in 100 mls @ 1 mls/hr IVPB TITR [facility]; Protocol Last Admin: 07/14/20 16:39 Dose: 1 mg/hr, 1 mls/hr Documented by: Lacosamide (Vimpat Liquid -) 200 mg GT BID [facility] Last Admin: 07/14/20 09:51 Dose: 200 mg Documented by: Levetiracetam (Keppra Oral Solution -) 1,250 mg GT BID [facility] Last Admin: 07/14/20 12:37 Dose: 1,250 mg Documented by: Lorazepam (Ativan Injection -) 2 mg IVPUSH Q2H PRN PRN Reason: AGITATION Last Admin: 07/14/20 16:43 Dose: 2 mg Documented by: Valproate Sodium (Depakene -) 750 mg GT BID [facility] Last Admin: 07/14/20 09:55 Dose: 750 mg Documented by: ASSESSMENT/PLAN: This is a 79 year old male, non-verbal at baseline, w/ PMH seizure disorder, neuropathy, cardiac arrest, ICH, dysphagia, HTN, asthma, COPD (s/p tracheostomy), who presented to the ED from [facility] with seizure (facial twitching, anisocoria). Pt recently hospitalized 06/2020 for similar presentation. As per pt's records, pt was on flagyl. Pt is admitted to the ICU for management of status epilepticus r/o sepsis. In the ED, pt received versed, ativan 2mg IV followed by vimpat with persistent facial twitching. Pt SBP was 85 in the ED, received 1L IVF with good response. CT head revealed b/l subdural hematomas w/o acute change. Dr. Luna (neurology) consulted and is aware. Spoke to family about GOC. wished to make her comfort care and do compassionate wean off ventilator. Dr. Zarate and Dr. Espinosa aware. Neuro -Neuro consulted. Recommended c/w ativan PRN, Klonipin for possible myoclonus, check prolactin, increase Vimpat 150 q12. No need to start phenobarbital. Maximum the current treatment. -Seizure precaution -Comfort care, morphine drip, morphine bolus, c/w ativan. Pulmonary -Tracheostomy in place -Vent: 12/400/50%/5 -CXR: Cardiac -monitor and maintain MAP >65 -IVF -d/c lasix -Cardio consulted. ID Possible sepsis? Leukocytosis Lactic acidosis -f/u cultures -Hold flagyl, due to possibility to lower seizure threshold. -ID consulted. GI GERD -Peg tube -d/c pepcid -maintain chronic neely Ppx -DVT: lovenox -GI: pepcid Family discussion: Spoke to and daughter about pt's status. They are in agreement to maintain pt's DNR/DNI and do compassionate wean off ventilator. Dispo: continue to monitor in the ICU. Visit type - Emergency Visit Emergency Visit: Yes ED Registration Date: 07/13/20 Care time: The patient presented to the Emergency Department on the above date and was hospitalized for further evaluation of their emergent condition. - New Patient This patient is new to me today: No - Critical Care Critical Care patient: Yes Total Critical Care Time (in minutes): 36 Critical Care Statement: The care of this patient involved high complexity decision making to prevent further life threatening deterioration of the patient's condition and/or to evaluate & treat vital organ system(s) failure or risk of failure. - Medication Review Med list reviewed for High Risk Meds patients 65 and older: Yes ATTENDING PHYSICIAN STATEMENT I saw and evaluated the patient. I reviewed the resident's note and discussed the case with the resident. I agree with the resident's findings and plan as documented. SUBJECTIVE: OBJECTIVE: ASSESSMENT AND PLAN:
[2020-07-14] MEDS ORDERED: PT OWN MED DRAWER 7, Y5N ONE ×6 (09:38→20:51)
[2020-07-14] MEDS: Lacosamide 50 MG/5 ML ORAL SOLUTION UNIT CUPS GT SCH ×2 (09:51→21:12)
[2020-07-14] MEDS: VALPROATE SODIUM 250 MG/5 ML UNIT DOSE CUP GT SCH ×2 (09:55→21:11)
[2020-07-14] MEDS ORDERED: ENOXAPARIN NA (PORCINE) 40 MG/0.4 ML DISP.SYRIN SQ SCH (10:00)
[2020-07-14] MEDS ORDERED: PATIENT'S OWN MEDICATION (NON-FORMULARY) (Lactobacillus Acidophilus [Acidophilus] 1 EACH) GT SCH (10:00)
[2020-07-14] MEDS ORDERED: LACTOBACILLUS ACIDOPHILUS 1 TABLET GT SCH (10:00)
[2020-07-14] MEDS ORDERED: FAMOTIDINE 40 MG/5 ML ORAL SUSPENSION PO SCH (10:00)
[2020-07-14] MEDS: MUPIROCIN 2% TOPICAL OINTMENT FOR DECOLONIZATION NS SCH (10:02)
[2020-07-14] MEDS: SILVER SULFADIAZINE 1% TOP CREAM 50 GM JAR TP SCH (10:02)
--- NOTE | 2020-07-14 11:10 | PN ---
Progress Note (short form) - Note Progress Note: Transfer note Subjective Objective Last Vital Signs Temp Pulse Resp BP Pulse Ox 98.6 F 101 H 18 161/91 100 07/14/20 10:00 07/14/20 10:00 07/14/20 10:00 07/14/20 10:00 07/14/20 08:10 A/P
[2020-07-14] MEDS ORDERED: INSULIN (NOVOLOG) ASPART 100 UNITS/ML 10ML VIAL ONE (12:33)
[2020-07-14] MEDS: levETIRAcetam 500 MG/5 ML ORAL SOLUTION (UNIT-DOSE CUPS) GT SCH ×2 (12:37→21:11)
--- NOTE | 2020-07-14 13:54 | CON.ID ---
Consult Referred by:: dr miranda Reason for Consultation:: leukocytosis - History of Present Illness Chief Complaint: seizures History of Present Illness: 79 yo man pmh cardiac arrest, ICH, seizures recently admitted 06/26 to 07/06 for seizures? treated for pneumonia now readmitted with facial grimacing/twitching no fevers leukocytosis one episode loose stools now resolved cxray unchanged from prior he is unresponsive - History Source History Provided By: Medical Record Limitations to Obtaining History: Clinical Condition - Past Medical History [employer]: Yes: CVA, Peripheral Neuropathy, Seizure, Other (ICH, metabolic encephalopathy) Cardio/Vascular: Yes: HTN, Other (cardiac arrest) Pulmonary: Yes: Asthma, COPD, O2 Dependent, Other (trach to vent) Gastrointestinal: Yes: Other (PEG) Renal/: Yes: Other (chronic neely) ENT: Yes: Sinusitis Endocrine: Yes: Diabetes Mellitus - Past Surgical History Additional Surgical History: tracheostomy - Alcohol/Substance Use Hx Alcohol Use: No - Smoking History Smoking history: Never smoked Have you smoked in the past 12 months: No - Social History Usual Living Arrangement: Senior Living ADL: Support Services History of Recent Travel: No Home Medications - Allergies Allergies/Adverse Reactions: Allergies Allergy/AdvReac Type Severity Reaction Status Date / Time No Known Allergies Allergy Verified 06/26/20 13:13 - Home Medications Home Medications: Ambulatory Orders Ferrous Sulfate [Feosol] 300 mg GT DAILY 06/26/20 Lactobacillus Acidophilus [Acidophilus] 1 each GT DAILY 06/26/20 Losartan Potassium [Cozaar] 100 mg GT DAILY 06/26/20 Metoprolol Tartrate [Lopressor -] 12.5 mg GT BID 06/26/20 Acetaminophen Oral Solution [Tylenol Oral Solution -] 650 mg GT Q4H PRN soln.oral 07/06/20 Enoxaparin [Lovenox -] 40 mg SQ DAILY disp.syrin 07/06/20 Furosemide Oral Solution [Lasix Oral Solution -] 40 mg GT BID@0600,1400 udc 07/06/20 Lacosamide Liquid [Vimpat Liquid -] 100 mg GT BID cup 07/06/20 Latanoprost 0.005% Eye Drops [Xalatan 0.005% Eye Drops -] 1 drop OU HS drops 07/06/20 Sitagliptin Phosphate [Januvia -] 25 mg PO DAILY@0700 #30 tab 07/06/20 Valproate Sodium [Depakene -] 750 mg GT BID cup 07/06/20 levETIRAcetam [Keppra Oral Solution -] 1,250 mg GT BID cup 07/06/20 metroNIDAZOLE [Flagyl -] 500 mg GT TID 7 Days #21 tablet 07/06/20 Aa/Hydrolyzed Collagen, Whey [Lps 15-30 Liquid] 30 ml PO DAILY 07/13/20 Famotidine [Pepcid] 2.5 ml PO DAILY 07/13/20 Insulin Lispro [Admelog Solostar] 0 unit SQ QID MDD sliding scale 07/13/20 Ondansetron [Zofran -] 4 mg PO TID 07/13/20 Silver Sulfadiazine [Silvadene] 1 applic TP BID 07/13/20 Family Medical History Family History: Unable to Obtain Review of Systems - Review of Systems Constitutional: denies: Fever Physical Exam Vital Signs: Vital Signs Temperature 98.9 F 07/14/20 11:41 Pulse Rate 100 H 07/14/20 13:00 Respiratory Rate 13 07/14/20 13:00 Blood Pressure 97/54 L 07/14/20 13:00 O2 Sat by Pulse Oximetry (%) 100 07/14/20 13:00 Constitutional: Yes: Thin, Other (unresponsive with right facial twitching) HENT: Yes: Atraumatic, Normocephalic Neck: Yes: Supple, Other (trach) Cardiovascular: Yes: Regular Rate and Rhythm Respiratory: Yes: Diminished (at bases) Gastrointestinal: Yes: Normal Bowel Sounds, Soft, Other (gt) ...Rectal Exam: Yes: Deferred Renal/: Yes: Neely Present Extremities: Yes: WNL Edema: No Edema: LUE: 1+, RUE: 1+ Integumentary: Yes: Pressure Ulcer (stage 2) Labs: CBC, BMP 07/14/20 05:30 07/14/20 05:30 Microbiology 07/14/20 05:00 Sputum - Endotrachea Suction/Ventilator Gram Stain - Final 07/13/20 12:55 Stool Clostridioides difficile Antigen - Final- negative 07/13/20 12:55 Stool Clostridioides difficile Toxin Assay - Final-negative blood cultures pending Imaging - Results Chest X-ray: Report Reviewed Cat Scan: Report Reviewed Problem List - Problems (1) Leukocytosis Code(s): D72.829 - ELEVATED WHITE BLOOD CELL COUNT, UNSPECIFIED (2) Seizure disorder Code(s): G40.909 - EPILEPSY, UNSP, NOT INTRACTABLE, WITHOUT STATUS EPILEPTICUS (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
--- NOTE | 2020-07-14 14:47 | EKG ---
Test Reason : Blood Pressure : / mmHG Vent. Rate : 086 BPM Atrial Rate : 086 BPM P-R Int : 164 ms QRS Dur : 142 ms QT Int : 392 ms P-R-T Axes : 083 -70 054 degrees QTc Int : 469 ms NORMAL SINUS RHYTHM RIGHT BUNDLE BRANCH BLOCK LEFT ANTERIOR FASCICULAR BLOCK BIFASCICULAR BLOCK POSSIBLE LATERAL INFARCT , AGE UNDETERMINED ABNORMAL ECG WHEN COMPARED WITH ECG OF 26-JUN-2020 13:49, BORDERLINE CRITERIA FOR LATERAL INFARCT ARE NOW PRESENT Confirmed by BEATRIZ FLORES MD ([id number]) on 07/14/2020 2:46:38 PM Referred By: Confirmed By:BEATRIZ FLORES MD
[2020-07-14] MEDS ORDERED: MORPHINE SULFATE 2 MG/ML VIAL IVPUSH ONE (15:46)
--- NOTE | 2020-07-14 15:49 | HP ---
Admitting History and Physical - Admission History of Present Illness: 1 year old male who is nonverbal at baseline with PMH seizures, ICH, metabolic encephalopathy, cardiac arrest, HTN, asthma, COPD, s/p tracheostomy, GERD, T1DM, chronic neely (changed every Saturday). Pt was recently hospitalized june 2020 with similar presentation. He presented to the ED from [facility] for evaluation of facial twitching and unequal pupils. Pt has been on new anti- epileptic regimen . [facility] records show pt has also been on flagyl - Past Medical History KETTLE CHIPPER: Yes: CVA, Peripheral Neuropathy, Seizure, Other (ICH, metabolic encephalopathy) Cardiovascular: Yes: HTN, Other (cardiac arrest) Pulmonary: Yes: Asthma, COPD, O2 Dependent, Other (trach to vent) Gastrointestinal: Yes: Other (PEG) Renal/: Yes: Other (chronic neely) ENT: Yes: Sinusitis Endocrine: Yes: Diabetes Mellitus - Smoking History Smoking history: Never smoked Have you smoked in the past 12 months: No - Alcohol/Substance Use Hx Alcohol Use: No - Social History ADL: Support Services History of Recent Travel: No Home Medications - Allergies Allergies/Adverse Reactions: Allergies Allergy/AdvReac Type Severity Reaction Status Date / Time No Known Allergies Allergy Verified 06/26/20 13:13 - Home Medications Home Medications: Ambulatory Orders Ferrous Sulfate [Feosol] 300 mg GT DAILY 06/26/20 Lactobacillus Acidophilus [Acidophilus] 1 each GT DAILY 06/26/20 Losartan Potassium [Cozaar] 100 mg GT DAILY 06/26/20 Metoprolol Tartrate [Lopressor -] 12.5 mg GT BID 06/26/20 Acetaminophen Oral Solution [Tylenol Oral Solution -] 650 mg GT Q4H PRN soln.oral 07/06/20 Enoxaparin [Lovenox -] 40 mg SQ DAILY disp.syrin 07/06/20 Furosemide Oral Solution [Lasix Oral Solution -] 40 mg GT BID@0600,1400 udc 07/06/20 Lacosamide Liquid [Vimpat Liquid -] 100 mg GT BID cup 07/06/20 Latanoprost 0.005% Eye Drops [Xalatan 0.005% Eye Drops -] 1 drop OU HS drops 07/06/20 Sitagliptin Phosphate [Januvia -] 25 mg PO DAILY@0700 #30 tab 07/06/20 Valproate Sodium [Depakene -] 750 mg GT BID cup 07/06/20 levETIRAcetam [Keppra Oral Solution -] 1,250 mg GT BID cup 07/06/20 metroNIDAZOLE [Flagyl -] 500 mg GT TID 7 Days #21 tablet 07/06/20 Aa/Hydrolyzed Collagen, Whey [Lps 15-30 Liquid] 30 ml PO DAILY 07/13/20 Famotidine [Pepcid] 2.5 ml PO DAILY 07/13/20 Insulin Lispro [Admelog Solostar] 0 unit SQ QID MDD sliding scale 07/13/20 Ondansetron [Zofran -] 4 mg PO TID 07/13/20 Silver Sulfadiazine [Silvadene] 1 applic TP BID 07/13/20 Physical Examination Vital Signs: Vital Signs Temperature 98.7 F 07/14/20 14:00 Pulse Rate 98 H 07/14/20 14:00 Respiratory Rate 13 07/14/20 14:00 Blood Pressure 112/61 07/14/20 14:00 O2 Sat by Pulse Oximetry (%) 100 07/14/20 13:00 Cardiovascular: Yes: S1 Respiratory: Yes: Mechanically Ventilated Gastrointestinal: Yes: Normal Bowel Sounds, Soft Neurological: Yes: Seizure, Tremors, Unresponsive Labs: CBC, BMP 07/14/20 05:30 07/14/20 05:30 Problem List - Problems (1) Status epilepticus Assessment/Plan: Orders 07/13/20 21:14 LORazepam [Ativan Injection -] 2 mg IVPUSH Q2H PRN Lacosamide Liquid [Vimpat Liquid -] 200 mg GT BID Valproate Sodium [Depakene -] 750 mg GT BID levETIRAcetam [Keppra Oral Solution -] 1,250 mg GT BID Further plan per Neurology Code(s): G40.901 - EPILEPSY, UNSP, NOT INTRACTABLE, WITH STATUS EPILEPTICUS (2) Myoclonus Assessment/Plan: as above Code(s): 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
--- NOTE | 2020-07-14 15:59 | PN ---
Teaching Attending Note Name of Resident: Felicity Barragan ATTENDING PHYSICIAN STATEMENT I saw and evaluated the patient. I reviewed the resident's note and discussed the case with the resident. I agree with the resident's findings and plan as documented. SUBJECTIVE: Patient seen and examined in the ICU. Vented, facial twitching noted. Suspected myoclonus rather than true seizures. Intake & Output 07/11/20 07/12/20 07/13/20 07/14/20 23:59 23:59 23:59 23:59 Intake Total 1100 100 Output Total 400 725 Balance 700 -625 Weight 174 lb 2.643 oz 177 lb 4.026 oz Last Vital Signs Temp Pulse Resp BP Pulse Ox 98.7 F 98 H 13 112/61 100 07/14/20 14:00 07/14/20 14:00 07/14/20 14:00 07/14/20 14:00 07/14/20 13:00 Active Medications Acetaminophen (Tylenol Oral Solution -) 650 mg GT Q4H PRN PRN Reason: PAIN Chlorhexidine Gluconate (Hibiclens For Decolonization -) 1 applic TP HS [facility] Last Admin: 07/13/20 21:33 Dose: 1 applic Documented by: Enoxaparin Sodium (Lovenox -) 40 mg SQ DAILY [facility] Last Admin: 07/14/20 09:54 Dose: 40 mg Documented by: Famotidine (Pepcid) 20 mg PO DAILY [facility] Last Admin: 07/14/20 12:42 Dose: 20 mg Documented by: Furosemide (Lasix Oral Solution -) 40 mg GT BID@0600,1400 [facility] Last Admin: 07/14/20 13:10 Dose: 40 mg Documented by: Piperacillin Sod/Tazobactam (Sod 3.375 gm/ Dextrose) 50 mls @ 100 mls/hr IVPB Q8H-IV [facility]; Protocol Morphine Sulfate (Morphine 100mg/100ml-0.9% Nacl) 100 mg in 100 mls @ 1 mls/hr IVPB TITR [facility]; Protocol Lacosamide (Vimpat Liquid -) 200 mg GT BID [facility] Last Admin: 07/14/20 09:51 Dose: 200 mg Documented by: Lactobacillus Acidophilus (Bacid -) 1 tab GT DAILY [facility] Last Admin: 07/14/20 09:50 Dose: 1 tab Documented by: Latanoprost (Xalatan 0.005% Eye Drops -) 1 drop OU HS [facility] Last Admin: 07/13/20 21:50 Dose: 1 drop Documented by: Levetiracetam (Keppra Oral Solution -) 1,250 mg GT BID [facility] Last Admin: 07/14/20 12:37 Dose: 1,250 mg Documented by: Lorazepam (Ativan Injection -) 2 mg IVPUSH Q2H PRN PRN Reason: AGITATION Mupirocin (Bactroban Ointment (For Decolonization) -) 1 applic NS BID [facility] Stop: 07/18/20 21:59 Last Admin: 07/14/20 10:02 Dose: 1 applic Documented by: Silver Sulfadiazine (Silvadene -) 1 applic TP BID [facility] Last Admin: 07/14/20 10:02 Dose: 1 applic Documented by: Valproate Sodium (Depakene -) 750 mg GT BID [facility] Last Admin: 07/14/20 09:55 Dose: 750 mg Documented by: Constitutional: Yes: Vented, facial twitching HENT: Yes: Atraumatic, Normocephalic Neck: Yes: Supple, Other (trach) Cardiovascular: Yes: Regular Rate and Rhythm Respiratory: Yes: Vented, Diminished at bases Gastrointestinal: Yes: Normal Bowel Sounds, Soft, Other (gt) ...Rectal Exam: Yes: Deferred Renal/: Yes: [place] Present Extremities: Yes: WNL Edema: No Edema: LUE: 1+, RUE: 1+ Integumentary: Yes: Pressure Ulcer (stage 2) Labs: Laboratory Results - last 24 hr 07/13/20 07/13/20 07/13/20 14:00 14:00 16:15 WBC RBC Hgb Hct MCV MCH MCHC RDW Plt Count MPV Absolute Neuts (auto) Neutrophils % Lymphocytes % Monocytes % Eosinophils % Basophils % Nucleated RBC % Sodium 140 Potassium 4.3 Chloride 103 Carbon Dioxide 33 H Anion Gap 4 L BUN 22.2 H Creatinine 0.7 Est GFR (CKD-EPI)AfAm 103.30 Est GFR (CKD-EPI)NonAf 89.13 POC Glucometer Random Glucose 147 H Lactic Acid 2.6 H* Calcium 9.6 Phosphorus 3.4 Magnesium 2.1 Total Bilirubin 0.2 AST 20 ALT 21 Alkaline Phosphatase 50 Total Protein 7.2 Albumin 2.3 L TSH Urine Color Yellow Urine Appearance Clear Urine pH 5.5 D Ur Specific [place] 1.021 Urine Protein 1+ H Urine Glucose (UA) Negative Urine Ketones Trace H Urine Blood 2+ H Urine Nitrite Negative Urine Bilirubin Negative Urine Urobilinogen 0.2 Ur Leukocyte Esterase 1+ H Urine WBC (Auto) 48 Urine RBC (Auto) 128 Urine Casts (Auto) 6 U Epithel Cells (Auto) 32 Urine Bacteria (Auto) 41 Valproic Acid COVID-19 ([facility]EENA) 07/13/20 07/13/20 07/13/20 17:30 17:51 21:30 WBC RBC Hgb Hct MCV MCH MCHC RDW Plt Count MPV Absolute Neuts (auto) Neutrophils % Lymphocytes % Monocytes % Eosinophils % Basophils % Nucleated RBC % Sodium Potassium Chloride Carbon Dioxide Anion Gap BUN Creatinine Est GFR (CKD-EPI)AfAm Est GFR (CKD-EPI)NonAf POC Glucometer 116 Random Glucose Lactic Acid Calcium Phosphorus Magnesium Total Bilirubin AST ALT Alkaline Phosphatase Total Protein Albumin TSH Urine Color Urine Appearance Urine pH Ur Specific [place] Urine Protein Urine Glucose (UA) Urine Ketones Urine Blood Urine Nitrite Urine Bilirubin Urine Urobilinogen Ur Leukocyte Esterase Urine WBC (Auto) Urine RBC (Auto) Urine Casts (Auto) U Epithel Cells (Auto) Urine Bacteria (Auto) Valproic Acid 63.2 COVID-19 (NEENA) Not detected 07/14/20 07/14/20 07/14/20 01:20 05:30 05:30 WBC 16.5 H RBC 3.45 L Hgb 8.7 L Hct 27.8 L MCV 80.7 MCH 25.2 L MCHC 31.2 L RDW 18.4 H Plt Count 768 H MPV 7.9 Absolute Neuts (auto) 10.0 H Neutrophils % 60.9 Lymphocytes % 22.7 D Monocytes % 14.1 H Eosinophils % 2.0 D Basophils % 0.3 Nucleated RBC % 0 Sodium 142 Potassium 4.0 Chloride 105 Carbon Dioxide 32 Anion Gap 5 L BUN 20.4 H Creatinine 0.7 Est GFR (CKD-EPI)AfAm 103.30 Est GFR (CKD-EPI)NonAf 89.13 POC Glucometer 131 Random Glucose 131 H Lactic Acid Calcium 9.3 Phosphorus 3.6 Magnesium 2.1 Total Bilirubin 0.2 AST 15 ALT 19 Alkaline Phosphatase 50 Total Protein 7.1 Albumin 2.2 L TSH 4.56 H Urine Color Urine Appearance Urine pH Ur Specific [place] Urine Protein Urine Glucose (UA) Urine Ketones Urine Blood Urine Nitrite Urine Bilirubin Urine Urobilinogen Ur Leukocyte Esterase Urine WBC (Auto) Urine RBC (Auto) Urine Casts (Auto) U Epithel Cells (Auto) Urine Bacteria (Auto) Valproic Acid COVID-19 (NEENA) 07/14/20 07/14/20 07/14/20 06:11 10:55 11:40 WBC RBC Hgb Hct MCV MCH MCHC RDW Plt Count MPV Absolute Neuts (auto) Neutrophils % Lymphocytes % Monocytes % Eosinophils % Basophils % Nucleated RBC % Sodium Potassium Chloride Carbon Dioxide Anion Gap BUN Creatinine Est GFR (CKD-EPI)AfAm Est GFR (CKD-EPI)NonAf POC Glucometer 109 124 Random Glucose Lactic Acid 1.6 Calcium Phosphorus Magnesium Total Bilirubin AST ALT Alkaline Phosphatase Total Protein Albumin TSH Urine Color Urine Appearance Urine pH Ur Specific [place] Urine Protein Urine Glucose (UA) Urine Ketones Urine Blood Urine Nitrite Urine Bilirubin Urine Urobilinogen Ur Leukocyte Esterase Urine WBC (Auto) Urine RBC (Auto) Urine Casts (Auto) U Epithel Cells (Auto) Urine Bacteria (Auto) Valproic Acid COVID-19 (NEENA) ASSESSMENT/PLAN: Chronic Respiratory Failure Suspected myoclonus rather than seizure Seizure disorder Neuropathy S/P cardiac arrest ICH Dysphagia HTN Asthma COPD Low clinical suspicion of Sepsis Titrate AEDs per Neuro AC Mode of vent IVF Follow cultures Empiric ABX for now and stop once cultures are negative GI & VTE prophylaxis Vent floor To discuss further with JUSTAK his GOC Dr Zarate
[2020-07-14] MEDS: MORPHINE SULFATE/0.9% NACL/PF 100 MG/100 ML BAG IVPB SCH (16:39)
[2020-07-14] MEDS ORDERED: PIPERACILLIN/TAZOB 3.375 GM 3.375 GM in DEXTROSE 5%-WATER - 50 ML IVPB SCH (18:00)
[2020-07-14] MEDS: clonazePAM 0.5 MG TABLET PO SCH (23:02)
--- NOTE | 2020-07-15 06:44 | PN ---
Progress Note (short form) - Note Progress Note: Transfer note Subjective: This is a 79 year old male, non-verbal at baseline, w/ PMH seizure disorder, neuropathy, cardiac arrest, ICH, dysphagia, HTN, asthma, COPD (s/p tracheostomy), who presented to the ED from [facility] with seizure (facial twitching, anisocoria). Pt recently hospitalized 06/2020 for similar presentation. As per pt's records, pt was on flagyl. Pt is admitted to the ICU for management of status epilepticus r/o sepsis. In the ED, pt received versed, ativan 2mg IV followed by vimpat with persistent facial twitching. Pt SBP was 85 in the ED, received 1L IVF with good response. CT head revealed b/l subdural hematomas w/o acute change. Dr. Luna (neurology) consulted and is aware. Spoke to family about GOC. wished to make her comfort care and do compassionate wean off ventilator. Dr. Zarate and Dr. Espinosa aware. Objective: Last Vital Signs Temp Pulse Resp BP Pulse Ox 98.5 F 103 H 18 152/83 94 L 07/15/20 06:00 07/15/20 06:00 07/15/20 06:00 07/15/20 06:00 07/15/20 06:00 GENERAL: Unresponsive. Occasional facial twitches. HEENT: NCAT. Pupils constricted. Neck: Tracheostomy visualized. LUNGS: Scattered rales b/l. HEART: Regular rate and rhythm, normal S1 and S2 without murmur ABDOMEN: Soft, nontender, not distended. Bowel sounds present in all [address]. Extremities: b/l upper extremity and lower extremity 2+ pitting edema SKIN: Stage 2 sacral ulcer on L buttock A/P: This is a 79 year old male, non-verbal at baseline, w/ PMH seizure disorder, neuropathy, cardiac arrest, ICH, dysphagia, HTN, asthma, COPD (s/p tracheostomy), who presented to the ED from [facility] with seizure. Pt is placed on comfort care. Dr. Zarate and Dr. Espinosa aware. Pt is stable for transfer.
[2020-07-15] MEDS ORDERED: VALPROATE SODIUM 250 MG/5 ML UNIT DOSE CUP GT SCH (10:00)
--- NOTE | 2020-07-15 10:09 | PN ---
Progress Note, Physician History of Present Illness: events note d Chart reviwed Alert no Does not follow commands On trach Noted left sided twitching did not imporve on Klonopin - Current Medication List Current Medications: Active Medications Clonazepam (Klonopin -) 0.5 mg PO BID [facility] Last Admin: 07/14/20 23:02 Dose: 0.5 mg Documented by: Morphine Sulfate (Morphine 100mg/100ml-0.9% Nacl) 100 mg in 100 mls @ 1 mls/hr IVPB TITR [facility]; Protocol Last Admin: 07/14/20 16:39 Dose: 1 mg/hr, 1 mls/hr Documented by: Lacosamide (Vimpat Liquid -) 200 mg GT BID [facility] Levetiracetam (Keppra Oral Solution -) 1,250 mg GT BID [facility] Lorazepam (Ativan Injection -) 2 mg IVPUSH Q2H PRN PRN Reason: AGITATION - Objective Vital Signs: Vital Signs Temperature 98.5 F 07/15/20 06:00 Pulse Rate 57 L 07/15/20 09:04 Respiratory Rate 15 07/15/20 09:04 Blood Pressure 152/83 07/15/20 06:00 O2 Sat by Pulse Oximetry (%) 99 07/15/20 08:00 Constitutional: Yes: Well Nourished Eyes: Yes: WNL HENT: Yes: WNL Neurological: Yes: Aphasia, Weakness Labs: CBC, BMP 07/14/20 05:30 07/14/20 05:30 Problem List - Problems (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 Seizure precaution 2 .Depakote 1000 mg GT q12 3. Depakote level tomorro w 4. Continue Klonopin DC planning
--- NOTE | 2020-07-15 10:38 | PN ---
Progress Note, Physician History of Present Illness: PULMONARY POORLY RESPONSIVE ON TRACH COLLAR,-RESP DISTRESS,+ FACIAL TWITCHING - Current Medication List Current Medications: Active Medications Clonazepam (Klonopin -) 0.5 mg PO BID [facility] Last Admin: 07/14/20 23:02 Dose: 0.5 mg Documented by: Morphine Sulfate (Morphine 100mg/100ml-0.9% Nacl) 100 mg in 100 mls @ 1 mls/hr IVPB TITR [facility]; Protocol Last Admin: 07/14/20 16:39 Dose: 1 mg/hr, 1 mls/hr Documented by: Lacosamide (Vimpat Liquid -) 200 mg GT BID [facility] Levetiracetam (Keppra Oral Solution -) 1,250 mg GT BID [facility] Lorazepam (Ativan Injection -) 2 mg IVPUSH Q2H PRN PRN Reason: AGITATION Valproate Sodium (Depakene -) 1,000 mg GT BID [facility] - Objective Vital Signs: Vital Signs Temperature 98.5 F 07/15/20 06:00 Pulse Rate 57 L 07/15/20 09:04 Respiratory Rate 15 07/15/20 09:04 Blood Pressure 152/83 07/15/20 06:00 O2 Sat by Pulse Oximetry (%) 99 07/15/20 08:00 Constitutional: Yes: Well Nourished, Other (UNRESPONSIVE) Eyes: Yes: WNL HENT: Yes: WNL Neck: Yes: Supple (TRACH) Cardiovascular: Yes: Regular Rate and Rhythm, S1, S2 Respiratory: Yes: Diminished Gastrointestinal: Yes: Normal Bowel Sounds, Soft Extremities: Yes: WNL Edema: No Labs: Problem List - Problems (1) Comfort measures only status Code(s): Z51.5 - ENCOUNTER FOR PALLIATIVE CARE (2) Myoclonus Code(s): G25.3 - MYOCLONUS (3) Anemia Code(s): D64.9 - ANEMIA, UNSPECIFIED Qualifiers: Anemia type: unspecified type Qualified Code(s): D64.9 - Anemia, unspecified (4) CVA (cerebral vascular accident) Code(s): I63.9 - CEREBRAL INFARCTION, UNSPECIFIED (5) Respiratory failure Code(s): J96.90 - RESPIRATORY FAILURE, UNSP, UNSP W HYPOXIA OR HYPERCAPNIA (6) Seizure disorder Code(s): G40.909 - EPILEPSY, UNSP, NOT INTRACTABLE, WITHOUT STATUS EPILEPTICUS (7) Tracheostomy dependent Code(s): Z93.0 - TRACHEOSTOMY STATUS Assessment/Plan ASSESSMENT/PLAN: Chronic Respiratory Failure Suspected myoclonus rather than seizure Seizure disorder Neuropathy S/P cardiac arrest ICH Dysphagia HTN Asthma COPD Low clinical suspicion of Sepsis Titrate AEDs per Neuro AC Mode of vent IVF Empiric ABX GI & VTE prophylaxis Vent floor To discuss further with NOK his GOC DR CRAWFORD
[2020-07-15] MEDS: LORazepam 2 MG/ML SDV VIAL IVPUSH PRN (10:53)
[2020-07-15] MEDS: Lacosamide 50 MG/5 ML ORAL SOLUTION UNIT CUPS GT SCH ×2 (10:54→22:21)
[2020-07-15] MEDS: levETIRAcetam 500 MG/5 ML ORAL SOLUTION (UNIT-DOSE CUPS) GT SCH ×2 (10:55→22:20)
[2020-07-15] MEDS: clonazePAM 0.5 MG TABLET PO SCH ×2 (10:55→22:21)
--- NOTE | 2020-07-15 11:48 | PN ---
Progress Note, Physician Chief Complaint: Status epilepticus Anemia Leukocytosis Comfort care History of Present Illness: NAD + Facial twitching Compassionate weaning yesterday, on Trach collar On Morphine drip DNR signed No lab draws or any other intervention as per family Only necessary medications - Current Medication List Current Medications: Active Medications Clonazepam (Klonopin -) 0.5 mg PO BID [facility] Last Admin: 07/15/20 10:55 Dose: 0.5 mg Documented by: Morphine Sulfate (Morphine 100mg/100ml-0.9% Nacl) 100 mg in 100 mls @ 1 mls/hr IVPB TITR [facility]; Protocol Last Admin: 07/14/20 16:39 Dose: 1 mg/hr, 1 mls/hr Documented by: Lacosamide (Vimpat Liquid -) 200 mg GT BID [facility] Last Admin: 07/15/20 10:54 Dose: 200 mg Documented by: Levetiracetam (Keppra Oral Solution -) 1,250 mg GT BID [facility] Last Admin: 07/15/20 10:55 Dose: 1,250 mg Documented by: Lorazepam (Ativan Injection -) 2 mg IVPUSH Q2H PRN PRN Reason: AGITATION Last Admin: 07/15/20 10:53 Dose: 2 mg Documented by: Valproate Sodium (Depakene -) 1,000 mg GT BID [facility] - Objective Vital Signs: Vital Signs Temperature 98.5 F 07/15/20 06:00 Pulse Rate 106 H 07/15/20 10:53 Respiratory Rate 21 H 07/15/20 10:53 Blood Pressure 152/83 07/15/20 06:00 O2 Sat by Pulse Oximetry (%) 99 07/15/20 08:00 Constitutional: Yes: Well Nourished, No Distress, Calm Cardiovascular: Yes: Tachycardia Respiratory: Yes: Regular, CTA Bilaterally, Other (trach collar) Gastrointestinal: Yes: Soft, Hypoactive Bowel Sounds Genitourinary: Yes: Bryant Present Musculoskeletal: Yes: WNL Extremities: Yes: Other (generalized atrophy) Edema: No Peripheral Pulses WNL: Yes Neurological: Yes: Pre-Existing Deficit, Seizure (+ facial twitching), Other (obtunded) Labs: CBC, BMP 07/14/20 05:30 07/14/20 05:30 Problem List - Problems (1) Myoclonus Assessment/Plan: -Seen by Neurology -[facility] increased -Ativan PRN -Klonopin 0.5 mg BID Problems reviewed: Yes Code(s): G25.3 - MYOCLONUS (2) Status epilepticus Problems reviewed: Yes Code(s): G40.901 - EPILEPSY, UNSP, NOT INTRACTABLE, WITH STATUS EPILEPTICUS (3) Anemia Assessment/Plan: -chronic Problems reviewed: Yes Code(s): D64.9 - ANEMIA, UNSPECIFIED Qualifiers: Anemia type: unspecified type Qualified Code(s): D64.9 - Anemia, unspecified (4) Subdural bleeding Problems reviewed: Yes Code(s): I62.00 - NONTRAUMATIC SUBDURAL HEMORRHAGE, UNSPECIFIED (5) Comfort measures only status Assessment/Plan: -DNR signed -Morphine drip -No lab draws -Palliative care on board- consult appreciated Problems reviewed: Yes Code(s): Z51.5 - ENCOUNTER FOR PALLIATIVE CARE Assessment/Plan See problem list
[2020-07-15 15:43] VITALS: BMI 24.0
[2020-07-15] MEDS: MORPHINE SULFATE/0.9% NACL/PF 100 MG/100 ML BAG IVPB SCH (17:01)
[2020-07-15] MEDS: VALPROATE SODIUM 250 MG/5 ML UNIT DOSE CUP GT SCH (22:27)
[2020-07-15] MEDS ORDERED: PT OWN MED DRAWER 7, Y5N ONE (22:53)
--- NOTE | 2020-07-16 07:37 | PN ---
Progress Note, Physician Chief Complaint: Status epilepticus Anemia Leukocytosis Comfort care History of Present Illness: NAD + Facial twitching Compassionate weaning yesterday, on Trach collar On Morphine drip DNR signed No lab draws or any other intervention as per family Only necessary medications - Current Medication List Current Medications: Active Medications Clonazepam (Klonopin -) 0.5 mg PO BID [facility] Last Admin: 07/15/20 22:21 Dose: 0.5 mg Documented by: Morphine Sulfate (Morphine 100mg/100ml-0.9% Nacl) 100 mg in 100 mls @ 1 mls/hr IVPB TITR [facility]; Protocol Last Admin: 07/15/20 17:01 Dose: 1 mg/hr, 1 mls/hr Documented by: Lacosamide (Vimpat Liquid -) 200 mg GT BID [facility] Last Admin: 07/15/20 22:21 Dose: 200 mg Documented by: Levetiracetam (Keppra Oral Solution -) 1,250 mg GT BID [facility] Last Admin: 07/15/20 22:20 Dose: 1,250 mg Documented by: Lorazepam (Ativan Injection -) 2 mg IVPUSH Q2H PRN PRN Reason: AGITATION Last Admin: 07/15/20 10:53 Dose: 2 mg Documented by: Valproate Sodium (Depakene -) 1,000 mg GT BID [facility] Last Admin: 07/15/20 22:27 Dose: 1,000 mg Documented by: - Objective Vital Signs: Vital Signs Temperature 99 F 07/16/20 01:57 Pulse Rate 106 H 07/16/20 06:42 Respiratory Rate 9 L 07/16/20 06:42 Blood Pressure 156/69 07/16/20 01:57 O2 Sat by Pulse Oximetry (%) 98 07/16/20 01:57 Constitutional: Yes: Well Nourished, No Distress, Calm Cardiovascular: Yes: Regular Rate and Rhythm Respiratory: Yes: Bradypnea, Diminished, Other (trach collar) Gastrointestinal: Yes: Soft, Hypoactive Bowel Sounds Genitourinary: Yes: Bryant Present Musculoskeletal: Yes: Muscle Weakness Extremities: Yes: Other (generalized atrophy) Edema: No Peripheral Pulses WNL: Yes Neurological: Yes: Pre-Existing Deficit Labs: CBC, BMP 07/14/20 05:30 07/14/20 05:30 Problem List - Problems (1) Myoclonus Assessment/Plan: -Seen by Neurology -Depakote increased -Ativan PRN -Klonopin 0.5 mg BID Problems reviewed: Yes Code(s): G25.3 - MYOCLONUS (2) Status epilepticus Problems reviewed: Yes Code(s): G40.901 - EPILEPSY, UNSP, NOT INTRACTABLE, WITH STATUS EPILEPTICUS (3) Anemia Assessment/Plan: -chronic Problems reviewed: Yes Code(s): D64.9 - ANEMIA, UNSPECIFIED Qualifiers: Anemia type: unspecified type Qualified Code(s): D64.9 - Anemia, unspecified (4) Subdural bleeding Problems reviewed: Yes Code(s): I62.00 - NONTRAUMATIC SUBDURAL HEMORRHAGE, UNSPECIFIED (5) Comfort measures only status Assessment/Plan: -DNR signed -Morphine drip -No lab draws -Palliative care on board- consult appreciated Problems reviewed: Yes Code(s): Z51.5 - ENCOUNTER FOR PALLIATIVE CARE Assessment/Plan See problem list
[2020-07-16] MEDS: VALPROATE SODIUM 250 MG/5 ML UNIT DOSE CUP GT SCH ×2 (10:46→22:48)
[2020-07-16] MEDS: levETIRAcetam 500 MG/5 ML ORAL SOLUTION (UNIT-DOSE CUPS) GT SCH (10:46)
[2020-07-16] MEDS: clonazePAM 0.5 MG TABLET PO SCH ×2 (10:47→22:47)
[2020-07-16] MEDS: Lacosamide 50 MG/5 ML ORAL SOLUTION UNIT CUPS GT SCH (10:48)
--- NOTE | 2020-07-16 14:18 | PN ---
Progress Note (short form) - Note Progress Note: Lethargic and comfortable on Trach collar and MS drip. Comfort care measures. Intake & Output 07/13/20 07/14/20 07/15/20 07/16/20 23:59 23:59 23:59 23:59 Intake Total 1100 100 170 12 Output Total 400 1075 700 100 Balance 700 -975 -530 -88 Weight 174 lb 2.643 oz 177 lb 4.026 oz 177 lb Last Vital Signs Temp Pulse Resp BP Pulse Ox 99 F 89 8 L 156/69 98 07/16/20 01:57 07/16/20 10:00 07/16/20 10:00 07/16/20 01:57 07/16/20 01:57 Active Medications Clonazepam (Klonopin -) 0.5 mg PO BID [facility] Last Admin: 07/16/20 10:47 Dose: Not Given Documented by: Morphine Sulfate (Morphine 100mg/100ml-0.9% Nacl) 100 mg in 100 mls @ 1 mls/hr IVPB TITR [facility]; Protocol Last Infusion: 07/16/20 07:57 Dose: 2 mg/hr, 2 mls/hr Documented by: Lacosamide (Vimpat Liquid -) 200 mg GT BID [facility] Last Admin: 07/16/20 10:48 Dose: Not Given Documented by: Levetiracetam (Keppra Oral Solution -) 1,250 mg GT BID [facility] Last Admin: 07/16/20 10:46 Dose: Not Given Documented by: Lorazepam (Ativan Injection -) 2 mg IVPUSH Q2H PRN PRN Reason: AGITATION Last Admin: 07/15/20 10:53 Dose: 2 mg Documented by: Valproate Sodium (Depakene -) 1,000 mg GT BID [facility] Last Admin: 07/16/20 10:46 Dose: Not Given Documented by: Constitutional: Yes: Lethargic in NAD on Trach collar HENT: Yes: Atraumatic, Normocephalic Neck: Yes: Supple, Other (trach) Cardiovascular: Yes: Regular Rate and Rhythm Respiratory: Yes: Trach collar, Diminished at bases Gastrointestinal: Yes: Normal Bowel Sounds, Soft, Other (gt) ...Rectal Exam: Yes: Deferred Renal/: Yes: Bryant Present Extremities: Yes: WNL Edema: No Edema: LUE: 1+, RUE: 1+ Integumentary: Yes: Pressure Ulcer (stage 2) Labs: ASSESSMENT/PLAN: Chronic Respiratory Failure 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
[2020-07-16] MEDS: MORPHINE SULFATE/0.9% NACL/PF 100 MG/100 ML BAG IVPB SCH (17:00)
[2020-07-17] MEDS: LORazepam 2 MG/ML SDV VIAL IVPUSH PRN (05:33)
--- NOTE | 2020-07-17 08:11 | PN ---
Progress Note, Physician Chief Complaint: Status epilepticus Anemia Leukocytosis Comfort care History of Present Illness: NAD + Facial twitching Compassionate weaning yesterday, on Trach collar On Morphine drip DNR signed No lab draws or any other intervention as per family Only necessary medications - Current Medication List Current Medications: Active Medications Clonazepam (Klonopin -) 0.5 mg GT BID [facility] Morphine Sulfate (Morphine 100mg/100ml-0.9% Nacl) 100 mg in 100 mls @ 1 mls/hr IVPB TITR [facility]; Protocol Last Admin: 07/16/20 17:00 Dose: 3 mg/hr, 3 mls/hr Documented by: Lorazepam (Ativan Injection -) 2 mg IVPUSH Q2H PRN PRN Reason: AGITATION Last Admin: 07/17/20 05:33 Dose: 2 mg Documented by: Valproate Sodium (Depakene -) 1,000 mg GT BID [facility] Last Admin: 07/16/20 22:48 Dose: 1,000 mg Documented by: - Objective Vital Signs: Vital Signs Temperature 99.3 F 07/17/20 06:26 Pulse Rate 108 H 07/17/20 06:26 Respiratory Rate 11 07/17/20 06:26 Blood Pressure 137/78 07/17/20 06:26 O2 Sat by Pulse Oximetry (%) 97 07/17/20 06:26 Constitutional: Yes: Well Nourished, No Distress, Calm Cardiovascular: Yes: Regular Rate and Rhythm Respiratory: Yes: CTA Bilaterally, Bradypnea Gastrointestinal: Yes: Soft, Hypoactive Bowel Sounds Genitourinary: Yes: Bryant Present Musculoskeletal: Yes: WNL Edema: No Peripheral Pulses WNL: Yes Neurological: Yes: Pre-Existing Deficit Labs: CBC, BMP 07/14/20 05:30 07/14/20 05:30 Problem List - Problems (1) Myoclonus Assessment/Plan: -Seen by Neurology -[facility] -Ativan PRN -Klonopin 0.5 mg BID Problems reviewed: Yes Code(s): G25.3 - MYOCLONUS (2) Status epilepticus Problems reviewed: Yes Code(s): G40.901 - EPILEPSY, UNSP, NOT INTRACTABLE, WITH STATUS EPILEPTICUS (3) Anemia Assessment/Plan: -chronic Problems reviewed: Yes Code(s): D64.9 - ANEMIA, UNSPECIFIED Qualifiers: Anemia type: unspecified type Qualified Code(s): D64.9 - Anemia, unspecified (4) Subdural bleeding Problems reviewed: Yes Code(s): I62.00 - NONTRAUMATIC SUBDURAL HEMORRHAGE, UNSPECIFIED (5) Comfort measures only status Assessment/Plan: -DNR signed -Morphine drip -No lab draws -Palliative care on board- consult appreciated Problems reviewed: Yes Code(s): Z51.5 - ENCOUNTER FOR PALLIATIVE CARE Assessment/Plan See problem list
[2020-07-17] MEDS: VALPROATE SODIUM 250 MG/5 ML UNIT DOSE CUP GT SCH ×2 (10:49→22:52)
[2020-07-17] MEDS: clonazePAM 0.5 MG TABLET GT SCH ×2 (10:49→22:52)
--- NOTE | 2020-07-17 13:49 | PN ---
Progress Note (short form) - Note Progress Note: Lethargic but comfortable on Trach collar and MS drip. Comfort care measures. Intake & Output 07/14/20 07/15/20 07/16/20 07/17/20 23:59 23:59 23:59 23:59 Intake Total 100 170 39 Output Total 1075 700 250 Balance -975 -530 -211 Weight 177 lb 4.026 oz 177 lb Last Vital Signs Temp Pulse Resp BP Pulse Ox 98.7 F 95 H 11 124/61 97 07/17/20 10:00 07/17/20 10:00 07/17/20 06:26 07/17/20 10:00 07/17/20 06:26 Active Medications Clonazepam (Klonopin -) 0.5 mg GT BID [facility] Last Admin: 07/17/20 10:49 Dose: 0.5 mg Documented by: Morphine Sulfate (Morphine 100mg/100ml-0.9% Nacl) 100 mg in 100 mls @ 1 mls/hr IVPB TITR [facility]; Protocol Last Admin: 07/16/20 17:00 Dose: 3 mg/hr, 3 mls/hr Documented by: Lorazepam (Ativan Injection -) 2 mg IVPUSH Q2H PRN PRN Reason: AGITATION Last Admin: 07/17/20 05:33 Dose: 2 mg Documented by: Valproate Sodium (Depakene -) 1,000 mg GT BID [facility] Last Admin: 07/17/20 10:49 Dose: 1,000 mg Documented by: Constitutional: Yes: Lethargic in NAD on Trach collar HENT: Yes: Atraumatic, Normocephalic Neck: Yes: Supple, Other (trach) Cardiovascular: Yes: Regular Rate and Rhythm Respiratory: Yes: Trach collar, Diminished at bases Gastrointestinal: Yes: Normal Bowel Sounds, Soft, Other (gt) ...Rectal Exam: Yes: Deferred Renal/: Yes: Bryant Present Extremities: Yes: WNL Edema: No Edema: LUE: 1+, RUE: 1+ Integumentary: Yes: Pressure Ulcer (stage 2) Labs: ASSESSMENT/PLAN: Chronic Respiratory Failure 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
[2020-07-17] MEDS: MORPHINE SULFATE/0.9% NACL/PF 100 MG/100 ML BAG IVPB SCH (17:00)
--- NOTE | 2020-07-18 08:12 | PN ---
Progress Note, Physician Chief Complaint: EVENTS AND NOTES REVIEWED DNR/DNI ON MORPHINE DRIP PALLIATIVE CARE - Current Medication List Current Medications: Active Medications Clonazepam (Klonopin -) 0.5 mg GT BID [facility] Last Admin: 07/17/20 22:52 Dose: 0.5 mg Documented by: Morphine Sulfate (Morphine 100mg/100ml-0.9% Nacl) 100 mg in 100 mls @ 1 mls/hr IVPB TITR [facility]; Protocol Last Admin: 07/17/20 17:00 Dose: 3 mg/hr, 3 mls/hr Documented by: Lorazepam (Ativan Injection -) 2 mg IVPUSH Q2H PRN PRN Reason: AGITATION Last Admin: 07/17/20 05:33 Dose: 2 mg Documented by: Valproate Sodium (Depakene -) 1,000 mg GT BID [facility] Last Admin: 07/17/20 22:52 Dose: 1,000 mg Documented by: - Objective Vital Signs: Vital Signs Temperature 97.7 F 07/18/20 06:00 Pulse Rate 102 H 07/18/20 08:08 Respiratory Rate 14 07/18/20 06:00 Blood Pressure 135/71 07/18/20 06:00 O2 Sat by Pulse Oximetry (%) 95 07/18/20 08:08 Constitutional: Yes: Mild Distress Cardiovascular: Yes: Regular Rate and Rhythm Respiratory: Yes: Other Genitourinary: Yes: Incontinence Musculoskeletal: Yes: Muscle Weakness Neurological: Yes: Unresponsive, Weakness Labs: CBC, BMP 07/14/20 05:30 07/14/20 05:30 Problem List - Problems (1) Comfort measures only status Code(s): Z51.5 - ENCOUNTER FOR PALLIATIVE CARE (2) Leukocytosis Code(s): D72.829 - ELEVATED WHITE BLOOD CELL COUNT, UNSPECIFIED (3) Myoclonus Code(s): G25.3 - MYOCLONUS (4) Status epilepticus Code(s): G40.901 - EPILEPSY, UNSP, NOT INTRACTABLE, WITH STATUS EPILEPTICUS (5) Anemia Code(s): D64.9 - ANEMIA, UNSPECIFIED Qualifiers: Anemia type: unspecified type Qualified Code(s): D64.9 - Anemia, unspecified (6) CVA (cerebral vascular accident) Code(s): I63.9 - CEREBRAL INFARCTION, UNSPECIFIED Assessment/Plan PALLIATIVE CARE PROTOCOL MORPHINE DRIP 02 SUPPORT NO LABS, COMFORT MEASURES ONLY
[2020-07-18] MEDS: VALPROATE SODIUM 250 MG/5 ML UNIT DOSE CUP GT SCH ×2 (10:09→21:43)
[2020-07-18] MEDS: clonazePAM 0.5 MG TABLET GT SCH ×2 (10:09→21:43)
[2020-07-18] MEDS: MORPHINE SULFATE/0.9% NACL/PF 100 MG/100 ML BAG IVPB SCH (16:00)
--- NOTE | 2020-07-19 08:52 | PN ---
Progress Note, Physician Chief Complaint: IN BED COMFORTABLE NO ACUTE EVENTS - Current Medication List Current Medications: Active Medications Clonazepam (Klonopin -) 0.5 mg GT BID [facility] Last Admin: 07/18/20 21:43 Dose: 0.5 mg Documented by: Morphine Sulfate (Morphine 100mg/100ml-0.9% Nacl) 100 mg in 100 mls @ 1 mls/hr IVPB TITR [facility]; Protocol Last Admin: 07/18/20 16:00 Dose: 5 mg/hr, 5 mls/hr Documented by: Lorazepam (Ativan Injection -) 2 mg IVPUSH Q2H PRN PRN Reason: AGITATION Last Admin: 07/17/20 05:33 Dose: 2 mg Documented by: Valproate Sodium (Depakene -) 1,000 mg GT BID [facility] Last Admin: 07/18/20 21:43 Dose: 1,000 mg Documented by: - Objective Vital Signs: Vital Signs Temperature 97.7 F 07/18/20 22:00 Pulse Rate 119 H 07/18/20 22:00 Respiratory Rate 10 07/18/20 22:00 Blood Pressure 111/68 07/18/20 22:00 O2 Sat by Pulse Oximetry (%) 90 L 07/19/20 05:03 Constitutional: Yes: Mild Distress Cardiovascular: Yes: Regular Rate and Rhythm Respiratory: Yes: Diminished, On Nasal O2 Gastrointestinal: Yes: Soft Genitourinary: Yes: Bryant Present Musculoskeletal: Yes: Muscle Weakness Labs: CBC, BMP 07/14/20 05:30 07/14/20 05:30 Problem List - Problems (1) Comfort measures only status Code(s): Z51.5 - ENCOUNTER FOR PALLIATIVE CARE (2) Leukocytosis Code(s): D72.829 - ELEVATED WHITE BLOOD CELL COUNT, UNSPECIFIED (3) Myoclonus Code(s): G25.3 - MYOCLONUS (4) Status epilepticus Code(s): G40.901 - EPILEPSY, UNSP, NOT INTRACTABLE, WITH STATUS EPILEPTICUS (5) Anemia Code(s): D64.9 - ANEMIA, UNSPECIFIED Qualifiers: Anemia type: unspecified type Qualified Code(s): D64.9 - Anemia, unspecified (6) CVA (cerebral vascular accident) Code(s): I63.9 - CEREBRAL INFARCTION, UNSPECIFIED Assessment/Plan PALLIATIVE CARE PROTOCOL MORPHINE DRIP 02 SUPPORT NO LABS, COMFORT MEASURES ONLY
[2020-07-19] MEDS: VALPROATE SODIUM 250 MG/5 ML UNIT DOSE CUP GT SCH ×2 (09:43→21:58)
[2020-07-19] MEDS: clonazePAM 0.5 MG TABLET GT SCH ×2 (09:43→21:59)
--- NOTE | 2020-07-19 10:38 | PN ---
Progress Note, Physician History of Present Illness: PULMONARY POORLY RESPONSIVE ON TRACH COLLAR,ON MORPHINE - Current Medication List Current Medications: Active Medications Clonazepam (Klonopin -) 0.5 mg GT BID [facility] Last Admin: 07/19/20 09:43 Dose: 0.5 mg Documented by: Morphine Sulfate (Morphine 100mg/100ml-0.9% Nacl) 100 mg in 100 mls @ 1 mls/hr IVPB TITR [facility]; Protocol Last Admin: 07/18/20 16:00 Dose: 5 mg/hr, 5 mls/hr Documented by: Lorazepam (Ativan Injection -) 2 mg IVPUSH Q2H PRN PRN Reason: AGITATION Last Admin: 07/17/20 05:33 Dose: 2 mg Documented by: Valproate Sodium (Depakene -) 1,000 mg GT BID [facility] Last Admin: 07/19/20 09:43 Dose: 1,000 mg Documented by: - Objective Vital Signs: Vital Signs Temperature 97.7 F 07/18/20 22:00 Pulse Rate 119 H 07/18/20 22:00 Respiratory Rate 10 07/18/20 22:00 Blood Pressure 111/68 07/18/20 22:00 O2 Sat by Pulse Oximetry (%) 90 L 07/19/20 05:03 Constitutional: Yes: Well Nourished, Other (POORLY RESPONSIVE) Eyes: Yes: WNL HENT: Yes: WNL Neck: Yes: Supple (TRACH) Cardiovascular: Yes: Regular Rate and Rhythm, S1, S2 Respiratory: Yes: Diminished Gastrointestinal: Yes: Normal Bowel Sounds, Soft Extremities: Yes: WNL Edema: No Labs: CBC, BMP Problem List - Problems (1) Comfort measures only status Code(s): Z51.5 - ENCOUNTER FOR PALLIATIVE CARE (2) Myoclonus Code(s): G25.3 - MYOCLONUS (3) Anemia Code(s): D64.9 - ANEMIA, UNSPECIFIED Qualifiers: Anemia type: unspecified type Qualified Code(s): D64.9 - Anemia, unspecified (4) CVA (cerebral vascular accident) Code(s): I63.9 - CEREBRAL INFARCTION, UNSPECIFIED (5) Respiratory failure Code(s): J96.90 - RESPIRATORY FAILURE, UNSP, UNSP W HYPOXIA OR HYPERCAPNIA (6) Seizure disorder Code(s): G40.909 - EPILEPSY, UNSP, NOT INTRACTABLE, WITHOUT STATUS EPILEPTICUS (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
[2020-07-19] MEDS: MORPHINE SULFATE/0.9% NACL/PF 100 MG/100 ML BAG IVPB SCH (12:00)
[2020-07-20] MEDS: MORPHINE SULFATE/0.9% NACL/PF 100 MG/100 ML BAG IVPB SCH (05:54)
--- NOTE | 2020-07-20 10:43 | PN ---
Progress Note, Physician History of Present Illness: pulmonary no change,poorly responsive on trach collar,-resp distress,on morphine drip - Current Medication List Current Medications: Active Medications Clonazepam (Klonopin -) 0.5 mg GT BID [facility] Last Admin: 07/19/20 21:59 Dose: Not Given Documented by: Morphine Sulfate (Morphine 100mg/100ml-0.9% Nacl) 100 mg in 100 mls @ 1 mls/hr IVPB TITR NORRIS; Protocol Last Admin: 07/20/20 05:54 Dose: 6 mg/hr, 6 mls/hr Documented by: Lorazepam (Ativan Injection -) 2 mg IVPUSH Q2H PRN PRN Reason: AGITATION Last Admin: 07/17/20 05:33 Dose: 2 mg Documented by: Valproate Sodium (Depakene -) 1,000 mg GT BID [facility] Last Admin: 07/19/20 21:58 Dose: Not Given Documented by: - Objective Vital Signs: Vital Signs Temperature 98.3 F 07/20/20 08:11 Pulse Rate 104 H 07/20/20 08:11 Respiratory Rate 2 L 07/20/20 08:11 Blood Pressure 94/46 L 07/20/20 08:11 O2 Sat by Pulse Oximetry (%) 90 L 07/19/20 10:00 Constitutional: Yes: Well Nourished, Other (poorly responsive) Eyes: Yes: WNL HENT: Yes: WNL Neck: Yes: WNL Cardiovascular: Yes: Regular Rate and Rhythm, S1, S2 Respiratory: Yes: Diminished Gastrointestinal: Yes: Normal Bowel Sounds, Soft Extremities: Yes: WNL Edema: No Labs: CBC, BMP Problem List - Problems (1) Comfort measures only status Code(s): Z51.5 - ENCOUNTER FOR PALLIATIVE CARE (2) Myoclonus Code(s): G25.3 - MYOCLONUS (3) Anemia Code(s): D64.9 - ANEMIA, UNSPECIFIED Qualifiers: Anemia type: unspecified type Qualified Code(s): D64.9 - Anemia, unspecified (4) CVA (cerebral vascular accident) Code(s): I63.9 - CEREBRAL INFARCTION, UNSPECIFIED (5) Respiratory failure Code(s): J96.90 - RESPIRATORY FAILURE, UNSP, UNSP W HYPOXIA OR HYPERCAPNIA (6) Seizure disorder Code(s): G40.909 - EPILEPSY, UNSP, NOT INTRACTABLE, WITHOUT STATUS EPILEPTICUS (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
--- NOTE | 2020-07-20 10:57 | PN ---
Progress Note, Physician Chief Complaint: Status epilepticus Anemia Leukocytosis Comfort care History of Present Illness: NAD + Facial twitching Compassionate weaning yesterday, on Trach collar On Morphine drip DNR signed No lab draws or any other intervention as per family Only necessary medications - Current Medication List Current Medications: Active Medications Clonazepam (Klonopin -) 0.5 mg GT BID [facility] Last Admin: 07/19/20 21:59 Dose: Not Given Documented by: Morphine Sulfate (Morphine 100mg/100ml-0.9% Nacl) 100 mg in 100 mls @ 1 mls/hr IVPB TITR [facility]RIS; Protocol Last Admin: 07/20/20 05:54 Dose: 6 mg/hr, 6 mls/hr Documented by: Lorazepam (Ativan Injection -) 2 mg IVPUSH Q2H PRN PRN Reason: AGITATION Last Admin: 07/17/20 05:33 Dose: 2 mg Documented by: Valproate Sodium (Depakene -) 1,000 mg GT BID [facility] Last Admin: 07/19/20 21:58 Dose: Not Given Documented by: - Objective Vital Signs: Vital Signs Temperature 98.3 F 07/20/20 08:11 Pulse Rate 104 H 07/20/20 08:11 Respiratory Rate 2 L 07/20/20 08:11 Blood Pressure 94/46 L 07/20/20 08:11 O2 Sat by Pulse Oximetry (%) 90 L 07/19/20 10:00 Constitutional: Yes: Well Nourished, No Distress, Calm Cardiovascular: Yes: Tachycardia Respiratory: Yes: Bradypnea, Diminished Gastrointestinal: Yes: Soft, Hypoactive Bowel Sounds Genitourinary: Yes: Bryant Present Musculoskeletal: Yes: WNL Extremities: Yes: WNL Edema: No Peripheral Pulses WNL: Yes Neurological: Yes: Pre-Existing Deficit Labs: CBC, BMP 07/14/20 05:30 07/14/20 05:30 Problem List - Problems (1) Myoclonus Assessment/Plan: -Seen by Neurology -Theo increased -Ativan PRN -Klonopin 0.5 mg BID Problems reviewed: Yes Code(s): G25.3 - MYOCLONUS (2) Status epilepticus Problems reviewed: Yes Code(s): G40.901 - EPILEPSY, UNSP, NOT INTRACTABLE, WITH STATUS EPILEPTICUS (3) Anemia Assessment/Plan: -chronic Problems reviewed: Yes Code(s): D64.9 - ANEMIA, UNSPECIFIED Qualifiers: Anemia type: unspecified type Qualified Code(s): D64.9 - Anemia, unspecified (4) Subdural bleeding Problems reviewed: Yes Code(s): I62.00 - NONTRAUMATIC SUBDURAL HEMORRHAGE, UNSPECIFIED (5) Comfort measures only status Assessment/Plan: -DNR signed -Morphine drip -No lab draws -Palliative care on board- consult appreciated Problems reviewed: Yes Code(s): Z51.5 - ENCOUNTER FOR PALLIATIVE CARE Assessment/Plan See problem list
[2020-07-20] MEDS: clonazePAM 0.5 MG TABLET GT SCH (11:56)
[2020-07-20] MEDS: VALPROATE SODIUM 250 MG/5 ML UNIT DOSE CUP GT SCH (11:56)
[2020-07-20 14:09] VITALS: BP 93/52; PULSE 106; TEMP 98.4
--- NOTE | 2020-07-20 23:29 | HOSP ---
Subjective - Review of Symptoms Events since last encounter: Hospitalist Encounter Notified by the primary RN that the patient is unresponsive, was asked to assess. Patient is a DNR/DNI, on comfort measures with Morphine Drip Arrived to bedside, patient is unresponsive to verbal stimulus, no response to sternal rub, no apical or peripheral pulses, no spontaneous respirations, pupils fixed and dilated, no corneal reflex, no Gag reflex, no voluntary movement of extremities, skin cool to touch. Patient pronounced at 21:10. Call placed to patient's son Asif Ballard (NOK), no answer voicemail left to call hospital regarding patient. Neurological: Yes: Other (Unresponsive) Physical Examination Vital Signs: Vital Signs Temperature 98.4 F 07/20/20 14:07 Pulse Rate 106 H 07/20/20 14:07 Respiratory Rate 2 L 07/20/20 14:07 Blood Pressure 93/52 L 07/20/20 14:07 O2 Sat by Pulse Oximetry (%) 100 07/20/20 14:07 Constitutional: Yes: Other (unresponsive) Eyes: Yes: Other (pupils fixed- non reactive) Cardiovascular: Yes: Other (no apical or peripheral pulses) Respiratory: Yes: Other (no spontaneous respirations) Gastrointestinal: Yes: Other (absent bowel sounds) Peripheral Pulses WNL: No Neurological: Yes: Unresponsive Labs: CBC, BMP 07/14/20 05:30 07/14/20 05:30 Hospitalist Encounter Assessment: This is a 79 y/o male with a PMHx of Seizures, ICH, Metabolic Encephalopathy, Cardiac Arrest, HTN, Asthma, COPD s/p Tracheostomy, GERD, T1DM, Chronic Bryant, recent hospitalization for Seizure Disorder Plan: 21:10 Call placed to family- awaiting callback to nursing station- RN RN to prepare body for Araceli CUMMINGS to inform PMD in AM
== END 2020-07-20 22:00 | disposition expired | DRG 100 ==
LOC: JER 10:36 → JERBED 15:46 → JICU 18:28 → J5S 07-14 22:55
PROVIDERS: ADMIT Family Medicine; ATTEND Family Medicine
PROC: 06HM33Z Insertion of Infusion Device into Right Femoral Vein, Percutaneous Approach (ICD-10-PCS; 2020-07-13)
PROC: 5A1945Z Respiratory Ventilation, 24-96 Consecutive Hours (ICD-10-PCS; principal; 2020-07-14)
DX: G40.901 Epilepsy, unspecified, not intractable, with status epilepticus (principal); R40.20 Unspecified coma; I62.03 Nontraumatic chronic subdural hemorrhage; G93.1 Anoxic brain damage, not elsewhere classified; J96.10 Chronic respiratory failure, unspecified whether with hypoxia or hypercapnia; E87.2 Acidosis; L89.152 Pressure ulcer of sacral region, stage 2; R13.10 Dysphagia, unspecified; I10 Essential (primary) hypertension; J45.909 Unspecified asthma, uncomplicated; E11.40 Type 2 diabetes mellitus with diabetic neuropathy, unspecified; J44.9 Chronic obstructive pulmonary disease, unspecified; D72.829 Elevated white blood cell count, unspecified; Z51.5 Encounter for palliative care; I69.398 Other sequelae of cerebral infarction; K21.9 Gastro-esophageal reflux disease without esophagitis; D64.9 Anemia, unspecified; Z99.81 Dependence on supplemental oxygen; Z93.1 Gastrostomy status; Z93.0 Tracheostomy status; Z66 Do not resuscitate
CPT/HCPCS: 36415; 70450-TC; 71045-TC-FY; 80053; 80164; 80177; 81003; 82962; 83605; 83735; 84100; 84146; 84443; 85025; 87040; 87045; 87046; 87070; 87077; 87086; 87177; 87186; 87205; 87209; 87324; 87449; 93005; 93010; 94002; 99285-25; U0003